=== PATIENT | male | born 1955 | race Caucasian/White ===

== ENCOUNTER → 2017-09-12 08:11 | Outpatient (CLI) | payer OTHER, SELFPAY ==
[2017-09-12 11:51] LABS: Absolute Lymphocyte Count 0.84 X10^3/ul (0.83-4.51); Absolute Neutrophil Count 4.3 X10^3/uL (2.0-7.7); Basophil# 0.01 X10^3/uL; Basophil% 0.2 % (0-1); Eosinophil# 0.12 X10^3/uL; Hematocrit 46.5 % (40-54); Hemoglobin 15.4 g/dl (13.0-16.5); Lymphocyte # 0.84 X10^3/ul (4.0); Lymphocyte % 13.9 % (19-41); Mean Corp Hgb Conc 33.1 g/gl (32-36); Mean Corpuscular Hgb 27.9 pg (27.0-32.0); Mean Corpuscular Volume 84.4 fL (80-94); Mean Platelet Vol. 9.9 fl (6.2-12.0); Monocyte# 0.74 X10^3/uL; Monocyte% 12.3 % (0-10); Neutrophil # 4.32 X10^3/uL (2.7-7.7); Neutrophil % 71.4 % (47-70); Platelet Count 267 K/mm3 (150-450); RBC Distribution Width CV 14.1 % (11.6-14.6); RBC Distribution Width SD 43.7 fl (35.1-43.9); Red Blood Count 5.51 M/mm3 (4.6-6.2)
[2017-09-12 11:52] LABS: POSITIVE COUNT NO; POSITIVE DIFFERENTIAL NO; POSITIVE MORPHOLOGY NO
[2017-09-12 12:01] LABS: Hemoglobin A1c 6.4 % (4.2-6.3)
[2017-09-12 12:14] LABS: ALB/GLOB Ratio 1.1 RATIO (0.9-2.4); AST(SGOT) 23 U/L (15-37); Alanine Aminotransfer ALT/SGPT 39 U/L (16-61); Albumin, Serum 3.5 g/dL (3.2-5.0); Alkaline Phosphatase 76 U/L (45-117); Anion Gap 8 (5-15); BUN 22 mg/dL (7-18); BUN/Creat Ratio 20.8 RATIO (10-20); Calcium,Total 8.5 mg/dL (8.5-10.1); Chloride 105 mmol/L (98-107); Cholesterol 92 mg/dL (200); Creatinine, Serum 1.06 mg/dL (0.70-1.30); EST Glomerular Filtration Rate 75 mL/min (>60); Est Glom Filt Rate - Afr Amer 91 mL/min (>60); Globulin 3.3 g/dL (2.2-4.2); Glucose 100 mg/dL (74-106); High Density Lipoprotein 44 mg/dL; Potassium 4.4 mmol/L (3.5-5.1); Protein, Total 6.8 g/dL (6.4-8.2); Sodium Level 141 mmol/L (136-145); Thyroid Stim Hormone (TSH) 2.59 uIU/mL (0.358-3.74); Triglycerides 110 mg/dL; Very Low Density Lipoprotein 22 mg/dL (5-40)
== END ==
PROVIDERS: Family Provider Family Medicine; PCP Family Medicine; Visit Provider Family Medicine
DX: E11.9 Type 2 diabetes mellitus without complications (principal); I25.810 Atherosclerosis of coronary artery bypass graft(s) without angina pectoris; Z12.5 Encounter for screening for malignant neoplasm of prostate; R53.83 Other fatigue
CPT/HCPCS: 36415; 80053; 80061; 83036; 84443; 85025

== ENCOUNTER 2018-06-10 17:35 | Inpatient (IN) | payer OTHER, SELFPAY ==
[2018-06-10 17:36] VITALS: BP 156/73; PULSE 48; RESP 15; TEMP 37; O2SAT 95; BMI 33.0
--- NOTE | 2018-06-10 17:55 | ED.DCSUM_ITS ---
- ER Visit Summary Date of Service: 06/10/18 Chief Complaint: Nausea, vomiting, diarrhea History of Present Illness: The patient is a 62 M with mild cough and congestion 3 days ago. Yesterday he developed nausea, vomiting, and diarrhea. He had borderline fever at 99.9. Patient denies any prior abdominal surgeries. Physical Examination: Blood pressure is 156/73, temperature 98.6, heart rate 48, respiratory rate 15, pulse ox 95% on room air. Patient sitting upright in bed no acute distress. He is nontoxic appearing. Head neck examination unremarkable. Heart is bradycardic and regular. Lungs sounds are clear. Abdomen is soft but distended. No focal tenderness noted. Hypoactive bowel sounds are present. Test Results: CBC is unremarkable. Chemistry studies reveal glucose of 131 and a BUN of 22. LFTs and lipase normal. EKG is sinus at 71 with no acute ischemia. Emergency Department Course and Treatment: Patient was initially given IV fluids, Zofran, Bentyl. On repeat evaluation he reported some improvement. He still had significant abdominal distention. KUB and upright are obtained and reveal findings consistent with a small bowel obstruction. Patient was sent for CT flank and this is read as likely small bowel obstruction. There is a transition point noted in the pelvis with nondistended distal small bowel loops. Patient had continued nausea and vomited in the emergency room. NG tube was placed. There is little liquid output but the distention is improved and patient feels improved. I will speak with surgery to be consulted and hospitalist will see the patient for admission. Treatment Plan: [] Disposition: Admit Impression: Small bowel obstruction This note was generated with [employer] dictation software. It may contain incorrect words, spelling, and punctuation that were not noted in review of the chart prior to signing ED Disposition - Plan for ED Patient: Referrals: Arnie Braga MD [Primary Care Provider] -
--- NOTE | 2018-06-10 17:56 | EKG12_ITS ---
Test Reason : N/V Blood Pressure : / mmHG Vent. Rate : 071 BPM Atrial Rate : 071 BPM P-R Int : 182 ms QRS Dur : 128 ms QT Int : 390 ms P-R-T Axes : 026 -25 -18 degrees QTc Int : 423 ms Sinus rhythm with occasional Premature ventricular complexes Nonspecific intraventricular block Inferior infarct (cited on or before 28-FEB-2009), age undetermined Cannot rule out Anterior infarct , age undetermined Abnormal ECG Confirmed by RONALDO FRANKLIN, LAURIE ([id number]), manuscript editor RIVERA HU ([id number]) on 06/12/2018 1:29:06 PM Referred By: MAURO/TERENCE Confirmed By:LAURIE HIGGINS MD
[2018-06-10 18:16] LABS: Absolute Lymphocyte Count 0.62 X10^3/ul (0.83-4.51); Hematocrit 48.3 % (40-54); Hemoglobin 16.4 g/dl (13.0-16.5); Lymphocyte # 0.62 X10^3/ul (4.0); Lymphocyte % 12.1 % (19-41); Mean Corpuscular Hgb 28.2 pg (27.0-32.0); Mean Platelet Vol. 9.5 fl (6.2-12.0); Monocyte# 0.53 X10^3/uL; Monocyte% 10.4 % (0-10); Neutrophil # 3.96 X10^3/uL (2.7-7.7); Neutrophil % 77.3 % (47-70); Platelet Count 199 K/mm3 (150-450); RBC Distribution Width CV 14.4 % (11.6-14.6); RBC Distribution Width SD 43.2 fl (35.1-43.9); Red Blood Count 5.82 M/mm3 (4.6-6.2); White Blood Count 5.1 K/mm3 (4.4-11.0)
[2018-06-10 18:17] LABS: POSITIVE COUNT NO; POSITIVE DIFFERENTIAL NO; POSITIVE MORPHOLOGY NO
[2018-06-10] MEDS: Ondansetron 4 MG/2 ML Vial IV ×2 (18:23→23:25)
[2018-06-10] MEDS: 0.9% Normal Saline 1,000 ML 1000 ML IV (18:23)
[2018-06-10] MEDS: Dicyclomine 10 MG Capsule 20 MG PO (18:24)
[2018-06-10 18:27] LABS: AST(SGOT) 28 U/L (15-37); Alanine Aminotransfer ALT/SGPT 37 U/L (16-61); Albumin, Serum 3.4 g/dL (3.2-5.0); Alkaline Phosphatase 69 U/L (45-117); Anion Gap 6 (5-15); BUN 22 mg/dL (7-18); BUN/Creat Ratio 20.8 RATIO (10-20); Bilirubin, Direct 0.23 mg/dL (0.00-0.30); Chloride 107 mmol/L (98-107); Creatinine, Serum 1.06 mg/dL (0.70-1.30); EST Glomerular Filtration Rate 75 mL/min (>60); Est Glom Filt Rate - Afr Amer 90 mL/min (>60); Globulin 3.5 g/dL (2.2-4.2); Glucose 131 mg/dL (74-106); Lipase 55 U/L (73-393); Potassium 3.9 mmol/L (3.5-5.1); Protein, Total 6.9 g/dL (6.4-8.2); Sodium Level 136 mmol/L (136-145)
[2018-06-10] MEDS: 0.9% Normal Saline 1,000 ML 150 ML IV (19:31)
[2018-06-10 19:32] VITALS: BP 137/69; PULSE 68; RESP 16; TEMP 37; O2SAT 95
[2018-06-10 20:00] VITALS: BP 143/82; PULSE 73; RESP 15; TEMP 37.6; O2SAT 96
--- NOTE | 2018-06-10 20:16 | RAD_ITS ---
STUDY: X-RAY - ABDOMEN/PELVIS REASON FOR EXAM: Male, 62 years old. Abdominal distention nausea and vomiting TECHNIQUE: AP supine and upright views of the abdomen and pelvis. COMPARISON: None. FINDINGS: Normal visualized lung bases. There is moderately severe distention with air-fluid levels of multiple loops of small bowel in the abdomen and pelvis. There is no demonstrated free abdominal air. The visualized liver, spleen and kidneys are grossly normal in size and morphology. Normal soft tissue structures. There are degenerative changes of the lumbar spine. RAD/Abd Inc Decub and/or Erect IMPRESSION: Small bowel obstruction. Electronically Signed: Keshawn Lawrence MD at 21:48 EDT , Service support ,
[2018-06-10 21:30] VITALS: BP 145/82; PULSE 68; RESP 15; TEMP 37.2; O2SAT 96
[2018-06-10] MEDS: Mag Hydrox/Al Hydrox/Simeth 30 ML UDC PO (21:30)
--- NOTE | 2018-06-10 21:37 | CT_ITS ---
STUDY: CT ABDOMEN AND PELVIS WITHOUT CONTRAST REASON FOR EXAM: Male, 62 years old. Nausea, vomiting RADIATION DOSAGE (If Supplied By Facility): CTDIvol = ( 18.22 ) mGy, DLP = ( 951.48 ) mGycm TECHNIQUE: Transaxial images were obtained from the dome of the diaphragm to the symphysis pubis without oral contrast, and without intravenous contrast. Sagittal and coronal images were reconstructed. Individualized dose optimization techniques were used for this CT. COMPARISON: Radiographs same day. FINDINGS: There is a 4 mm pleural-based pulmonary nodule within the right middle lobe. The visualized portions of the heart are within normal limits. Normal liver. A benign hepatic calcifications. There is a 5 mm hypodensity within the right lobe of the liver. There are sternal wires and mediastinal clips. There is mild gallbladder distention.. There is benign splenic capsule calcification.. Normal pancreas. There is 5 mm fatty density within the left adrenal gland. There is a 5.6 x 5.3 cm cyst within the midpole of the right kidney. Normal left kidney. Normal visualized stomach. There is significant distended loops of small bowel with transition point within the pelvis with nondistended distal small bowel loops. Normal colon. Normal appendix Normal abdominal aorta. Normal inferior vena cava. Normal retroperitoneum. There is mild distention of the bladder. There is mild prostate enlargement. Normal abdominal wall. There are significant multilevel degenerative changes of the lumbar spine. Multilevel disc space narrowing and anterior and posterior osteophytes. There is multilevel central canal and foraminal stenosis CT/Abdomen/Pelvis without Cont IMPRESSION: Likely small bowel obstruction 4 mm likely benign pleural-based nodule within the right middle lobe, six-month CT chest follow-up recommended 5 mm hypodensity right lobe liver too small to characterize most likely a cyst Previous cardiothoracic surgery sternal wires and mediastinal clips Distended gallbladder. If there is Clinical concern for acute cholecystitis then right upper quadrant ultrasound would be recommended 5 mm left adrenal benign myelolipoma 5.6 x 5.3 cm cyst midpole right kidney Mild distention of the bladder Mild prostate enlargement Significant multilevel spondylosis lumbar spine Electronically Signed: Misha Robbins, at 23:27 EDT Tel , Service support ,
[2018-06-10 22:33] VITALS: BP 127/63; PULSE 68; RESP 15; O2SAT 95
[2018-06-10 23:40] VITALS: BP 137/89; PULSE 77; RESP 16; TEMP 37; O2SAT 93
--- NOTE | 2018-06-10 23:50 | RAD_ITS ---
HISTORY: NG placement COMPARISON: CT abdomen and pelvis 06/10/2018 FINDINGS: The NG tube appears in good position with the tube tip within the stomach. Median sternotomy sutures in place. Redemonstration of dilated small bowel loops in keeping with small bowel obstruction. RAD/Abdomen Single View (Portable) IMPRESSION: 1. NG tube tip within the stomach. 2. Small bowel obstruction. at 0025 Reported and signed by: Nolan Bella MD Electronically Signed: Nolan Bella, at 0:24 EDT Tel , Service support ,
--- NOTE | 2018-06-10 23:59 | RAD_ITS ---
HISTORY: performed for NG placement, ordering Mustapha unsure of placement on abdomen xray EXAM:XR Chest 1 View portable COMPARISON: CT abdomen and pelvis 06/10/[address] chest report but not images 02/26/2009 FINDINGS: NG tube in place with the distal tube coiled within the stomach. Shallow inspiration. Normal heart size. Mild blunting of the left costophrenic angle. No significant pleural effusion. No vascular congestion or acute infiltrate. Midline sternotomy sutures. RAD/Chest 1 View (Portable) IMPRESSION: 1. NG tube coiled within the stomach. 2. No acute cardiopulmonary disease. at 0315 Reported and signed by: Nolan Bella MD Electronically Signed: Nolan Bella, at 3:14 EDT Tel , Service support ,
[2018-06-11 00:11] VITALS: BP 131/77; PULSE 80; RESP 15; O2SAT 94
[2018-06-11 00:44] VITALS: BP 137/71; PULSE 73; RESP 16; TEMP 37; O2SAT 97; BMI 33.3
[2018-06-11] MEDS: Morphine 4 MG/ML Syringe IV (01:19)
--- NOTE | 2018-06-11 02:53 | PCM.HP.STD ---
Problem List (1) Nausea vomiting and diarrhea Status: Acute History of Present Illness Date of Admission: 06/11/18 Chief Complaint: Nausea vomiting and diarrhea The patient is a 62 year old M seen in the emergency room at [facility] with chief complaint of nausea vomiting and diarrhea. This started yesterday. Patient denied any fevers or chills. Patient denied any blood in his stool or vomitus. Workup in the emergency room included a CBC which was unremarkable, chemistry panel revealed a glucose of 131 and a BUN of 22. CT of the abdomen and pelvis was obtained which showed a small bowel obstruction. Distended loops of the small bowel with transition point within the pelvis was noted. NG tube was placed in the emergency room, general surgery was contacted and requested hospitalist service for admission for small bowel obstruction. Patient will be admitted to [place] [id number]. Past Medical History Past Medical History (Chronic Problems): Chronic Problems (Last Reviewed 10/18/17 @ 15:32 by Malaika Lopez) Presence of stent in coronary artery (Chronic ~01/17/08) PTCA of the RCA and PTCA/BMS of the PDA 01/17/08 Atherosclerotic heart disease of [place] coronary artery without angina pectoris (Chronic) CABG x5- MUELLER to LAD, SVG to the continuation branch of the RCA, SVG to the PDA, SVG to the ramus of CX, and SVG to the 1st diagonal of the anteiordescending 02/02/09 Ischemic cardiomyopathy (Chronic) Aortocoronary bypass status (Chronic ~02/02/09) CABG x5- MUELLER to LAD, SVG to the continuation branch of the RCA, SVG to the PDA, SVG to the ramus of CX, and SVG to the 1st diagonal of the anteiordescending 02/02/09 Long-term use of high-risk medication (Chronic) Type 2 diabetes mellitus (Chronic) Hyperlipidemia (Chronic) Carotid bruit (Chronic) Medical History: Medical History (Last Reviewed 10/18/17 @ 15:32 by Malaika Lopez) Postoperative atrial fibrillation (Acute) I97.89, I48.91 History of myocardial infarction (Acute) I25.2 Atherosclerotic heart disease of [place] coronary artery without angina pectoris (Chronic) I25.10 CABG x5- MUELLER to LAD, SVG to the continuation branch of the RCA, SVG to the PDA, SVG to the ramus of CX, and SVG to the 1st diagonal of the anteiordescending 02/02/09 Ischemic cardiomyopathy (Chronic) I25.5 Long-term use of high-risk medication (Chronic) Z79.899 Type 2 diabetes mellitus (Chronic) E11.9 Hyperlipidemia (Chronic) E78.5 Carotid bruit (Chronic) R09.89 Allergies Penicillins Allergy (Severe, Verified 06/10/18 17:36) Unknown Home Medications: Ambulatory Orders Medication Instructions Recorded aspirin 81 mg tablet,delayed 81 mg PO QHS 09/06/17 release metformin 500 mg tablet 500 mg PO QDAY tab 09/06/17 tamsulosin 0.4 mg capsule 0.4 mg PO QHS 10/18/17 atorvastatin 20 mg tablet 20 mg PO QDAY #90 tab 11/09/17 Metoprolol Tartrate 12.5 mg PO DAILY 06/11/18 Surgical History: Surgical History (Last Reviewed 10/18/17 @ 15:32 by Malaika Lopez) Presence of stent in coronary artery (Chronic) Onset Date: ~01/17/08 Z95.5 PTCA of the RCA and PTCA/BMS of the PDA 01/17/08 Aortocoronary bypass status (Chronic) Onset Date: ~02/02/09 Z95.1 CABG x5- MUELLER to LAD, SVG to the continuation branch of the RCA, SVG to the PDA, SVG to the ramus of CX, and SVG to the 1st diagonal of the anteiordescending 02/02/09 Postsurgical percutaneous transluminal coronary angioplasty (PTCA) status Z98.61 PTCA of the RCA and PTCA/BMS of the PDA 01/17/08 Surgical History: coronary bypass surgery, - - Coronary artery stent placement Psychiatric History: No pertinent psych hx Lives: Spouse/ Significant Other Smoking Status: Former smoker Tobacco Use: Non-smoker Alcohol: None Drugs: None - *Family History Maternal Family History: Family History (Last Reviewed 10/18/17 @ 15:32 by Malaika Lopez) Mother CAD (coronary artery disease) Hypertension Sister Hypertension History Items: No pertinent history Paternal Family History: Family History (Last Reviewed 10/18/17 @ 15:32 by Malaika Lopez) Mother CAD (coronary artery disease) Hypertension Sister Hypertension History Items: No pertinent history Review of Systems Constitutional: Denies: Anorexia, Chills, Fever, Night Sweats, Malaise, Weakness, Weight Change, Fatigue Eyes: Denies: Cataracts, Conjunctivae Inflammation, Double vision, Drainage HEENT: Denies: Difficulty Swallowing, Dysphasia, Ear Pain, Eye Pain, Hearing Changes, Nasal bleeding, Nasal Congestion, Post Nasal Drip Cardiovascular: Denies: Chest Pain, Claudication, Chest Pressure, Chest Tightness, Edema, Heaviness, Palpitations Respiratory: Denies: Cough, Hemoptysis, Pleuritic Pain, Shortness of Breath, Shortness of breath at rest, Shortness of breath upon exertion Gastrointestinal: Reports: Diarrhea, Nausea, Vomiting. Denies: Abdominal Pain, Constipation, Hematemesis, Hematochezia, Melena Genitourinary: Denies: Dysuria, Frequency, Hematuria, Hesitancy, Nocturia, Retention, Urgency Musculoskeletal: Denies: Back Pain, Foot Pain, Hand Pain, Joint Pain, Joint stiffness, Joint swelling, Joint Tenderness, Leg Pain Skin: Denies: Dryness, Pruritis, Rash Neurological: Denies: Blurred vision, Double vision, Change in Speech, Slurred speech, Difficulty swallowing, Focal weakness, Headaches, Incoordination, Numbness, Tingling Psychiatric: Denies: Anxiety, Depression, Homicidal Ideations, Suicidal Ideations Endocrine: Denies: Change in Body Habitus, Heat/ Cold Intolerance, Polydipsia, Polyuria Hematologic/ Lymphatic: Denies: Adenopathy, Anemia, Easy Bruising, Easy Bleeding, Petechiae, Purpura VTE Information - Inpt Only VTE Present on Admission: No VTE Mechan Device Prophylaxis: None VTE Pharm Prophylaxis ordered?: Yes Patient Problems: Active and Suspected Problems (Last Reviewed 10/18/17 @ 15:32 by Malaika Lopez) Nausea vomiting and diarrhea (Acute) - Physical Exam General: Alert, Oriented x3, Cooperative, No apparent distress, Well developed, Well nourished HEENT: Atraumatic, PERRLA, EOMI, Normocephalic Oral: Moist Mucosa Neck: Supple, No JVD, Negative Carotid Bruits, No Nuchal Rigidity, Trachea Midline, Thyroid Normal Size and Texture Lungs: Clear to auscultation, Normal air movement, No rhonchi, No wheeze, No rales Cardiovascular: Regular rate, Regular Rhythm, Normal S1, Normal S2, No murmurs, No Ectopic Activity, PMI Normal, No rub noted, No Gallop Abdomen: Hypoactive Bowel Sounds, Distended - Abdomen was distended and tympanic, Tender - Mild mid abdominal tenderness was noted, no rebound abdominal tenderness was noted, No hernias noted Extremities: No clubbing, No cyanosis, No edema, Capillary Refill Less than 3 Seconds Skin: No rashes, No breakdown Musculoskeletal: No Tenderness to Palpation of Joints or Extremities Neurological: Cranial nerves II-XII grossly intact, Neuro grossly intact, Sensory exam intact to light touch and pain, Coordination normal Psych/Mental Status: Normal Affect, Appropriate, Alert and oriented to time, place, person, mood and affect Vital Signs Temp Pulse Resp BP Pulse Ox 98.6 F 73 16 137/71 H 97 06/11/18 00:44 06/11/18 00:44 06/11/18 00:44 06/11/18 00:44 06/11/18 00:44 Oxygen Delivery Method Room Air Weight: 102.2 kg Body Mass Index (BMI) 33.3 Intake and Output for Last 24 Hours 06/09/18 06/10/18 06/11/18 23:59 23:59 23:59 Intake Total 50 / 50 Balance 50 / 50 Laboratory Tests Past 24 Hrs 06/10/18 06/10/18 18:00 18:00 WBC 5.1 RBC 5.82 Hgb 16.4 Hct 48.3 MCV 83.0 MCH 28.2 MCHC 34.0 RDW 14.4 RDW Differential 43.2 Plt Count 199 MPV 9.5 Immature Gran % (Auto) 0.200 Neut % (Auto) 77.3 H Lymph % (Auto) 12.1 L [place] % (Auto) 10.4 H Eos % (Auto) 0.0 Baso % (Auto) 0.0 Absolute Neuts (auto) 4.0 Absolute Lymphs (auto) 0.62 L Total Counted Not Reportable Sodium 136 Potassium 3.9 Chloride 107 Carbon Dioxide 23.0 Anion Gap 6 BUN 22 H Creatinine 1.06 Estim Creat Clear Calc 70.40 Est GFR (MDRD) Af Amer 90 Est GFR (MDRD) Non-Af 75 BUN/Creatinine Ratio 20.8 H Glucose 131 H Calcium 8.0 L Total Bilirubin 0.80 Direct Bilirubin 0.23 AST 28 ALT 37 Alkaline Phosphatase 69 Total Protein 6.9 Albumin 3.4 Globulin 3.5 Lipase 55 L Assessment/Plan All Active Problems (Last Reviewed 10/18/17 @ 15:32 by Malaika Lopez) Nausea vomiting and diarrhea (Acute) Postoperative atrial fibrillation (Acute) History of myocardial infarction (Acute) #1 acute small bowel obstruction-patient will be admitted to [facility], general surgery will see the patient in consultation, NG tube will stay in place and output will be monitored. Labs will be followed #2 coronary artery disease-stable #3 type 2 diabetes-patient's blood sugars will be monitored, sliding scale insulin will be used if needed #4 hyperlipidemia Code Visit Inpatient E&M: 86391 Init Hosp L3
[2018-06-11] MEDS: 0.9% Normal Saline 1,000 ML 150 ML IV ×2 (05:40→23:09)
[2018-06-11] MEDS: Heparin Injection (Vial) 5,000 UNIT/ML VIAL 5000 UNIT SC ×2 (05:41→22:03)
[2018-06-11 05:48] VITALS: BP 152/85; PULSE 72; RESP 18; TEMP 37.7; O2SAT 96
[2018-06-11 06:01] LABS: Bedside Glucose 111 mg/dL (70-110)
[2018-06-11 06:45] LABS: Absolute Lymphocyte Count 0.43 X10^3/ul (0.83-4.51); Basophil# 0.01 X10^3/uL; Basophil% 0.3 % (0-1); Hematocrit 46.8 % (40-54); Hemoglobin 15.6 g/dl (13.0-16.5); Lymphocyte # 0.43 X10^3/ul (4.0); Lymphocyte % 12.9 % (19-41); Mean Corp Hgb Conc 33.3 g/gl (32-36); Mean Corpuscular Hgb 27.9 pg (27.0-32.0); Mean Corpuscular Volume 83.7 fL (80-94); Mean Platelet Vol. 9.4 fl (6.2-12.0); Monocyte# 0.92 X10^3/uL; Monocyte% 27.5 % (0-10); Neutrophil # 1.98 X10^3/uL (2.7-7.7); Neutrophil % 59.3 % (47-70); Platelet Count 206 K/mm3 (150-450); RBC Distribution Width CV 14.4 % (11.6-14.6); RBC Distribution Width SD 44.4 fl (35.1-43.9); Red Blood Count 5.59 M/mm3 (4.6-6.2); White Blood Count 3.3 K/mm3 (4.4-11.0)
[2018-06-11 06:46] LABS: Differential Indicated SCAN CRITERIA MET; POSITIVE COUNT NO; POSITIVE DIFFERENTIAL YES; POSITIVE MORPHOLOGY NO
[2018-06-11 06:51] LABS: ALB/GLOB Ratio 0.9 RATIO (0.9-2.4); AST(SGOT) 22 U/L (15-37); Alanine Aminotransfer ALT/SGPT 33 U/L (16-61); Albumin, Serum 3.2 g/dL (3.2-5.0); Alkaline Phosphatase 67 U/L (45-117); Anion Gap 7 (5-15); BUN 20 mg/dL (7-18); BUN/Creat Ratio 19.2 RATIO (10-20); Chloride 107 mmol/L (98-107); Creatinine, Serum 1.04 mg/dL (0.70-1.30); EST Glomerular Filtration Rate 76 mL/min (>60); Est Glom Filt Rate - Afr Amer 92 mL/min (>60); Estimated Creatinine Clearance 71.76 ml/min; Globulin 3.5 g/dL (2.2-4.2); Glucose 115 mg/dL (74-106); Potassium 4.1 mmol/L (3.5-5.1); Protein, Total 6.7 g/dL (6.4-8.2); Sodium Level 140 mmol/L (136-145)
[2018-06-11 07:01] LABS: Differential Comment SCANNED
--- NOTE | 2018-06-11 07:45 | RAD_ITS ---
STUDY: X-RAY - ABDOMEN/PELVIS REASON FOR EXAM: Male, 62 years old. Small bowel obstruction. TECHNIQUE: AP supine and upright views of the abdomen and pelvis. COMPARISON: Comparison is made with prior study dated June 10, 2018. FINDINGS: The nasogastric tube is seen with the distal tip in the distal portion of the stomach. There are dilated loops of the small intestine with a non-distended colon consistent with a small bowel obstruction. Mild improvement within the small bowel obstruction. There is no demonstrated free abdominal air. The visualized liver, spleen and kidneys are grossly normal in size and morphology. Normal soft tissue structures. There are diffuse degenerative changes of the visualized lumbar spine. RAD/Abd Inc Decub and/or Erect IMPRESSION: Small bowel obstruction. There is minimal mild degree of improvement as compared to prior study. Electronically Signed: Jose Messer, at 15:54 EDT , Service support ,
--- NOTE | 2018-06-11 08:15 | PCM.CONS.GEN ---
Problem List (1) SBO (small bowel obstruction) Status: Acute Reason for Consult Date of Consultation: 06/11/18 History of Present Illness: The patient is a 62 year old M who presented to the emergency room with nausea and vomiting and diarrhea. The patient reports that since Monday morning he has been having nausea and vomiting and thought he came down with the flu. He is also having abdominal cramping. He has been having diarrhea as well. He had an NG tube placed in the ER and that relieved his abdominal cramping abdominal pain. He had no nausea or vomiting overnight. He said his last bout of diarrhea was yesterday at 5:30 PM. He said he did pass some gas overnight. He is not complaining of any abdominal pain currently. Past Medical History Past Medical History (Chronic Problems): Chronic Problems (Last Reviewed 10/18/17 @ 15:32 by Malaika Lopez) Presence of stent in coronary artery (Chronic ~01/17/08) PTCA of the RCA and PTCA/BMS of the PDA 01/17/08 Atherosclerotic heart disease of [place] coronary artery without angina pectoris (Chronic) CABG x5- MUELLER to LAD, SVG to the continuation branch of the RCA, SVG to the PDA, SVG to the ramus of CX, and SVG to the 1st diagonal of the anteiordescending 02/02/09 Ischemic cardiomyopathy (Chronic) Aortocoronary bypass status (Chronic ~02/02/09) CABG x5- MUELLER to LAD, SVG to the continuation branch of the RCA, SVG to the PDA, SVG to the ramus of CX, and SVG to the 1st diagonal of the anteiordescending 02/02/09 Long-term use of high-risk medication (Chronic) Type 2 diabetes mellitus (Chronic) Hyperlipidemia (Chronic) Carotid bruit (Chronic) Medical History: Medical History (Last Reviewed 10/18/17 @ 15:32 by Malaika Lopez) Postoperative atrial fibrillation (Acute) I97.89, I48.91 History of myocardial infarction (Acute) I25.2 Atherosclerotic heart disease of [place] coronary artery without angina pectoris (Chronic) I25.10 CABG x5- MUELLER to LAD, SVG to the continuation branch of the RCA, SVG to the PDA, SVG to the ramus of CX, and SVG to the 1st diagonal of the anteiordescending 02/02/09 Ischemic cardiomyopathy (Chronic) I25.5 Long-term use of high-risk medication (Chronic) Z79.899 Type 2 diabetes mellitus (Chronic) E11.9 Hyperlipidemia (Chronic) E78.5 Carotid bruit (Chronic) R09.89 Allergies Penicillins Allergy (Severe, Verified 06/10/18 17:36) Unknown Home Medications: Ambulatory Orders Medication Instructions Recorded aspirin 81 mg tablet,delayed 81 mg PO QHS 09/06/17 release metformin 500 mg tablet 500 mg PO QDAY tab 09/06/17 tamsulosin 0.4 mg capsule 0.4 mg PO QHS 10/18/17 atorvastatin 20 mg tablet 20 mg PO QDAY #90 tab 11/09/17 Metoprolol Tartrate 12.5 mg PO DAILY 06/11/18 Surgical History: Surgical History (Last Reviewed 10/18/17 @ 15:32 by Malaika Lopez) Presence of stent in coronary artery (Chronic) Onset Date: ~01/17/08 Z95.5 PTCA of the RCA and PTCA/BMS of the PDA 01/17/08 Aortocoronary bypass status (Chronic) Onset Date: ~02/02/09 Z95.1 CABG x5- MUELLER to LAD, SVG to the continuation branch of the RCA, SVG to the PDA, SVG to the ramus of CX, and SVG to the 1st diagonal of the anteiordescending 02/02/09 Postsurgical percutaneous transluminal coronary angioplasty (PTCA) status Z98.61 PTCA of the RCA and PTCA/BMS of the PDA 01/17/08 Surgical History: coronary bypass surgery, - - Coronary artery stent placement Psychiatric History: No pertinent psych hx Lives: Spouse/ Significant Other Smoking Status: Former smoker Tobacco Use: Non-smoker Alcohol: None Drugs: None - *Family History Maternal Family History: Family History (Last Reviewed 10/18/17 @ 15:32 by Malaika Lopez) Mother CAD (coronary artery disease) Hypertension Sister Hypertension History Items: No pertinent history Paternal Family History: Family History (Last Reviewed 10/18/17 @ 15:32 by Malaika Lopez) Mother CAD (coronary artery disease) Hypertension Sister Hypertension History Items: No pertinent history Review of Systems Constitutional: Denies: Anorexia, Fever HEENT: Denies: Difficulty Swallowing Respiratory: Denies: Shortness of Breath Gastrointestinal: Reports: Abdominal Pain, Diarrhea, Nausea, Vomiting. Denies: Hematemesis, Hematochezia Genitourinary: Denies: Dysuria Musculoskeletal: Denies: Joint Tenderness Skin: Denies: Jaundice Neurological: Denies: Balance problems Hematologic/ Lymphatic: Denies: Anemia Patient Problems: Active and Suspected Problems (Last Reviewed 10/18/17 @ 15:32 by Malaika Lopez) Nausea vomiting and diarrhea (Acute) SBO (small bowel obstruction) (Acute) - Physical Exam General: Alert, Oriented x3, Cooperative, No apparent distress HEENT: Atraumatic, PERRLA, EOMI, Normocephalic Neck: No JVD Lungs: Normal air movement Cardiovascular: Regular rate, Regular Rhythm Abdomen: Soft, Non Tender, Non-Distended, Obese Extremities: No clubbing Skin: No rashes Musculoskeletal: No Tenderness to Palpation of Joints or Extremities Lymphatic: No Cervical, Supraclavicular, or Inguinal Adenopathy Psych/Mental Status: Normal Affect Vital Signs Temp Pulse Resp BP Pulse Ox 99.9 F H 72 18 152/85 H 96 06/11/18 05:48 06/11/18 05:48 06/11/18 05:48 06/11/18 05:48 06/11/18 05:48 Oxygen Delivery Method Room Air Weight: 225 lb 4.999 oz Body Mass Index (BMI) 33.3 Intake and Output for Last 24 Hours 06/09/18 06/10/18 06/11/18 23:59 23:59 23:59 Intake Total 956 / 956 Output Total 250 / 250 Balance 706 / 706 Laboratory Tests Past 24 Hrs 06/10/18 06/10/18 06/11/18 18:00 18:00 05:45 WBC 5.1 3.3 L RBC 5.82 5.59 Hgb 16.4 15.6 Hct 48.3 46.8 MCV 83.0 83.7 MCH 28.2 27.9 MCHC 34.0 33.3 RDW 14.4 14.4 RDW Differential 43.2 44.4 H Plt Count 199 206 MPV 9.5 9.4 Immature Gran % (Auto) 0.200 0.000 Neut % (Auto) 77.3 H 59.3 Lymph % (Auto) 12.1 L 12.9 L [place] % (Auto) 10.4 H 27.5 H Eos % (Auto) 0.0 0.0 Baso % (Auto) 0.0 0.3 Absolute Neuts (auto) 4.0 2.0 Absolute Lymphs (auto) 0.62 L 0.43 L Total Counted Not Reportable Not Reportable Differential Comment SCANNED Sodium 136 Potassium 3.9 Chloride 107 Carbon Dioxide 23.0 Anion Gap 6 BUN 22 H Creatinine 1.06 Estim Creat Clear Calc 70.40 Est GFR (MDRD) Af Amer 90 Est GFR (MDRD) Non-Af 75 BUN/Creatinine Ratio 20.8 H Glucose 131 H Calcium 8.0 L Total Bilirubin 0.80 Direct Bilirubin 0.23 AST 28 ALT 37 Alkaline Phosphatase 69 Total Protein 6.9 Albumin 3.4 Globulin 3.5 Albumin/Globulin Ratio Lipase 55 L 06/11/18 05:45 WBC RBC Hgb Hct MCV MCH MCHC RDW RDW Differential Plt Count MPV Immature Gran % (Auto) Neut % (Auto) Lymph % (Auto) [place] % (Auto) Eos % (Auto) Baso % (Auto) Absolute Neuts (auto) Absolute Lymphs (auto) Total Counted Differential Comment Sodium 140 Potassium 4.1 Chloride 107 Carbon Dioxide 26.0 Anion Gap 7 BUN 20 H Creatinine 1.04 Estim Creat Clear Calc 71.76 Est GFR (MDRD) Af Amer 92 Est GFR (MDRD) Non-Af 76 BUN/Creatinine Ratio 19.2 Glucose 115 H Calcium 8.0 L Total Bilirubin 0.70 Direct Bilirubin AST 22 ALT 33 Alkaline Phosphatase 67 Total Protein 6.7 Albumin 3.2 Globulin 3.5 Albumin/Globulin Ratio 0.9 Lipase POC Glucose 06/11/18 05:39 POC Glucose 111 H Clinical Impression(s) from Imaging Studies Abdomen X-Ray 06/10/18 20:16 IMPRESSION: Small bowel obstruction. Electronically Signed: Keshawn Lawrence MD at 21:48 EDT , Service support , Abdomen/Pelvis CT 06/10/18 21:37 IMPRESSION: Likely small bowel obstruction 4 mm likely benign pleural-based nodule within the right middle lobe, six-month CT chest follow-up recommended 5 mm hypodensity right lobe liver too small to characterize most likely a cyst Previous cardiothoracic surgery sternal wires and mediastinal clips Distended gallbladder. If there is Clinical concern for acute cholecystitis then right upper quadrant ultrasound would be recommended 5 mm left adrenal benign myelolipoma 5.6 x 5.3 cm cyst midpole right kidney Mild distention of the bladder Mild prostate enlargement Significant multilevel spondylosis lumbar spine Electronically Signed: Misha Robbins, at 23:27 EDT Tel , Service support , KUB X-Ray 06/10/18 23:50 IMPRESSION: 1. NG tube tip within the stomach. 2. Small bowel obstruction. at 0025 Reported and signed by: Nolan Bella MD Electronically Signed: oNlan Bella, at 0:24 EDT Tel , Service support , Chest X-Ray 06/10/18 23:59 IMPRESSION: 1. NG tube coiled within the stomach. 2. No acute cardiopulmonary disease. at 0315 Reported and signed by: Nolan Bella MD Electronically Signed: Nolan Bella, at 3:14 EDT Tel , Service support , Assessment/Plan All Active Problems (Last Reviewed 10/18/17 @ 15:32 by Malaika Lopez) Nausea vomiting and diarrhea (Acute) SBO (small bowel obstruction) (Acute) Postoperative atrial fibrillation (Acute) History of myocardial infarction (Acute) 62-year-old male with possible small bowel obstruction 1. Patient had CT scan done which showed dilated small bowel with a possible transition point in the distal small bowel. Patient reports has been having diarrhea since this started and only had 200 cc of NG aspirate since NG was placed. Currently he has no abdominal pain and his white count is normal. I will send for a KUB this morning to see if anything is changed. If gases reaches colon on x-ray I may get a small bowel follow-through today. Currently I am not planning and taken to surgery today as his abdomen is soft and benign his white count is normal. 2. I did advise him that small bowel obstructions are unusual in people who have not had abdominal surgery and that if there was signs of partial or complete small bowel obstruction he would likely need surgical exploration to find the cause. Deion Coughlin MD Pager: [facility] [address] [place] [address] [address] [place] [address] Office:
--- NOTE | 2018-06-11 08:19 | CON.PCM_ITS ---
Problem List (1) SBO (small bowel obstruction) Status: Acute Reason for Consult Date of Consultation: 06/11/18 History of Present Illness: The patient is a 62 year old M who presented to the emergency room with nausea and vomiting and diarrhea. The patient reports that since Monday morning he has been having nausea and vomiting and thought he came down with the flu. He is also having abdominal cramping. He has been having diarrhea as well. He had an NG tube placed in the ER and that relieved his abdominal cramping abdominal pain. He had no nausea or vomiting overnight. He said his last bout of diarrhea was yesterday at 5:30 PM. He said he did pass some gas overnight. He is not complaining of any abdominal pain currently. Past Medical History Past Medical History (Chronic Problems): Chronic Problems (Last Reviewed 10/18/17 @ 15:32 by Malaika Lopez) Presence of stent in coronary artery (Chronic ~01/17/08) PTCA of the RCA and PTCA/BMS of the PDA 01/17/08 Atherosclerotic heart disease of [place] coronary artery without angina pectoris (Chronic) CABG x5- MUELLER to LAD, SVG to the continuation branch of the RCA, SVG to the PDA, SVG to the ramus of CX, and SVG to the 1st diagonal of the anteiordescending 02/02/09 Ischemic cardiomyopathy (Chronic) Aortocoronary bypass status (Chronic ~02/02/09) CABG x5- MUELLER to LAD, SVG to the continuation branch of the RCA, SVG to the PDA, SVG to the ramus of CX, and SVG to the 1st diagonal of the anteiordescending 02/02/09 Long-term use of high-risk medication (Chronic) Type 2 diabetes mellitus (Chronic) Hyperlipidemia (Chronic) Carotid bruit (Chronic) Medical History: Medical History (Last Reviewed 10/18/17 @ 15:32 by Malaika Lopez) Postoperative atrial fibrillation (Acute) I97.89, I48.91 History of myocardial infarction (Acute) I25.2 Atherosclerotic heart disease of [place] coronary artery without angina pectoris (Chronic) I25.10 CABG x5- MUELLER to LAD, SVG to the continuation branch of the RCA, SVG to the PDA, SVG to the ramus of CX, and SVG to the 1st diagonal of the anteiordescending 02/02/09 Ischemic cardiomyopathy (Chronic) I25.5 Long-term use of high-risk medication (Chronic) Z79.899 Type 2 diabetes mellitus (Chronic) E11.9 Hyperlipidemia (Chronic) E78.5 Carotid bruit (Chronic) R09.89 Allergies Penicillins Allergy (Severe, Verified 06/10/18 17:36) Unknown Home Medications: Ambulatory Orders Medication Instructions Recorded aspirin 81 mg tablet,delayed 81 mg PO QHS 09/06/17 release metformin 500 mg tablet 500 mg PO QDAY tab 09/06/17 tamsulosin 0.4 mg capsule 0.4 mg PO QHS 10/18/17 atorvastatin 20 mg tablet 20 mg PO QDAY #90 tab 11/09/17 Metoprolol Tartrate 12.5 mg PO DAILY 06/11/18 Surgical History: Surgical History (Last Reviewed 10/18/17 @ 15:32 by Malaika Lopez) Presence of stent in coronary artery (Chronic) Onset Date: ~01/17/08 Z95.5 PTCA of the RCA and PTCA/BMS of the PDA 01/17/08 Aortocoronary bypass status (Chronic) Onset Date: ~02/02/09 Z95.1 CABG x5- MUELLER to LAD, SVG to the continuation branch of the RCA, SVG to the PDA, SVG to the ramus of CX, and SVG to the 1st diagonal of the anteiordescending 02/02/09 Postsurgical percutaneous transluminal coronary angioplasty (PTCA) status Z98.61 PTCA of the RCA and PTCA/BMS of the PDA 01/17/08 Surgical History: coronary bypass surgery, - - Coronary artery stent placement Psychiatric History: No pertinent psych hx Lives: Spouse/ Significant Other Smoking Status: Former smoker Tobacco Use: Non-smoker Alcohol: None Drugs: None - *Family History Maternal Family History: Family History (Last Reviewed 10/18/17 @ 15:32 by Malaika Lopez) Mother CAD (coronary artery disease) Hypertension Sister Hypertension History Items: No pertinent history Paternal Family History: Family History (Last Reviewed 10/18/17 @ 15:32 by Malaika Lopez) Mother CAD (coronary artery disease) Hypertension Sister Hypertension History Items: No pertinent history Review of Systems Constitutional: Denies: Anorexia, Fever HEENT: Denies: Difficulty Swallowing Respiratory: Denies: Shortness of Breath Gastrointestinal: Reports: Abdominal Pain, Diarrhea, Nausea, Vomiting. Denies: Hematemesis, Hematochezia Genitourinary: Denies: Dysuria Musculoskeletal: Denies: Joint Tenderness Skin: Denies: Jaundice Neurological: Denies: Balance problems Hematologic/ Lymphatic: Denies: Anemia Patient Problems: Active and Suspected Problems (Last Reviewed 10/18/17 @ 15:32 by Malaika Lopez) Nausea vomiting and diarrhea (Acute) SBO (small bowel obstruction) (Acute) - Physical Exam General: Alert, Oriented x3, Cooperative, No apparent distress HEENT: Atraumatic, PERRLA, EOMI, Normocephalic Neck: No JVD Lungs: Normal air movement Cardiovascular: Regular rate, Regular Rhythm Abdomen: Soft, Non Tender, Non-Distended, Obese Extremities: No clubbing Skin: No rashes Musculoskeletal: No Tenderness to Palpation of Joints or Extremities Lymphatic: No Cervical, Supraclavicular, or Inguinal Adenopathy Psych/Mental Status: Normal Affect Vital Signs Temp Pulse Resp BP Pulse Ox 99.9 F H 72 18 152/85 H 96 06/11/18 05:48 06/11/18 05:48 06/11/18 05:48 06/11/18 05:48 06/11/18 05:48 Oxygen Delivery Method Room Air Weight: 225 lb 4.999 oz Body Mass Index (BMI) 33.3 Intake and Output for Last 24 Hours 06/09/18 06/10/18 06/11/18 23:59 23:59 23:59 Intake Total 956 / 956 Output Total 250 / 250 Balance 706 / 706 Laboratory Tests Past 24 Hrs 06/10/18 06/10/18 06/11/18 18:00 18:00 05:45 WBC 5.1 3.3 L RBC 5.82 5.59 Hgb 16.4 15.6 Hct 48.3 46.8 MCV 83.0 83.7 MCH 28.2 27.9 MCHC 34.0 33.3 RDW 14.4 14.4 RDW Differential 43.2 44.4 H Plt Count 199 206 MPV 9.5 9.4 Immature Gran % (Auto) 0.200 0.000 Neut % (Auto) 77.3 H 59.3 Lymph % (Auto) 12.1 L 12.9 L [place] % (Auto) 10.4 H 27.5 H Eos % (Auto) 0.0 0.0 Baso % (Auto) 0.0 0.3 Absolute Neuts (auto) 4.0 2.0 Absolute Lymphs (auto) 0.62 L 0.43 L Total Counted Not Reportable Not Reportable Differential Comment SCANNED Sodium 136 Potassium 3.9 Chloride 107 Carbon Dioxide 23.0 Anion Gap 6 BUN 22 H Creatinine 1.06 Estim Creat Clear Calc 70.40 Est GFR (MDRD) Af Amer 90 Est GFR (MDRD) Non-Af 75 BUN/Creatinine Ratio 20.8 H Glucose 131 H Calcium 8.0 L Total Bilirubin 0.80 Direct Bilirubin 0.23 AST 28 ALT 37 Alkaline Phosphatase 69 Total Protein 6.9 Albumin 3.4 Globulin 3.5 Albumin/Globulin Ratio Lipase 55 L 06/11/18 05:45 WBC RBC Hgb Hct MCV MCH MCHC RDW RDW Differential Plt Count MPV Immature Gran % (Auto) Neut % (Auto) Lymph % (Auto) [place] % (Auto) Eos % (Auto) Baso % (Auto) Absolute Neuts (auto) Absolute Lymphs (auto) Total Counted Differential Comment Sodium 140 Potassium 4.1 Chloride 107 Carbon Dioxide 26.0 Anion Gap 7 BUN 20 H Creatinine 1.04 Estim Creat Clear Calc 71.76 Est GFR (MDRD) Af Amer 92 Est GFR (MDRD) Non-Af 76 BUN/Creatinine Ratio 19.2 Glucose 115 H Calcium 8.0 L Total Bilirubin 0.70 Direct Bilirubin AST 22 ALT 33 Alkaline Phosphatase 67 Total Protein 6.7 Albumin 3.2 Globulin 3.5 Albumin/Globulin Ratio 0.9 Lipase POC Glucose 06/11/18 05:39 POC Glucose 111 H Clinical Impression(s) from Imaging Studies Abdomen X-Ray 06/10/18 20:16 IMPRESSION: Small bowel obstruction. Electronically Signed: Keshawn Lawrence MD at 21:48 EDT , Service support , Abdomen/Pelvis CT 06/10/18 21:37 IMPRESSION: Likely small bowel obstruction 4 mm likely benign pleural-based nodule within the right middle lobe, six-month CT chest follow-up recommended 5 mm hypodensity right lobe liver too small to characterize most likely a cyst Previous cardiothoracic surgery sternal wires and mediastinal clips Distended gallbladder. If there is Clinical concern for acute cholecystitis then right upper quadrant ultrasound would be recommended 5 mm left adrenal benign myelolipoma 5.6 x 5.3 cm cyst midpole right kidney Mild distention of the bladder Mild prostate enlargement Significant multilevel spondylosis lumbar spine Electronically Signed: Misha Robbins, at 23:27 EDT Tel , Service support , KUB X-Ray 06/10/18 23:50 IMPRESSION: 1. NG tube tip within the stomach. 2. Small bowel obstruction. at 0025 Reported and signed by: Nolan Bella MD Electronically Signed: Nolan Bella, at 0:24 EDT Tel , Service support , Chest X-Ray 06/10/18 23:59 IMPRESSION: 1. NG tube coiled within the stomach. 2. No acute cardiopulmonary disease. at 0315 Reported and signed by: Nolan Bella MD Electronically Signed: Nolan Bella, at 3:14 EDT Tel , Service support , Assessment/Plan All Active Problems (Last Reviewed 10/18/17 @ 15:32 by Malaika Lopez) Nausea vomiting and diarrhea (Acute) SBO (small bowel obstruction) (Acute) Postoperative atrial fibrillation (Acute) History of myocardial infarction (Acute) 62-year-old male with possible small bowel obstruction 1. Patient had CT scan done which showed dilated small bowel with a possible transition point in the distal small bowel. Patient reports has been having diarrhea since this started and only had 200 cc of NG aspirate since NG was placed. Currently he has no abdominal pain and his white count is normal. I will send for a KUB this morning to see if anything is changed. If gases reaches colon on x-ray I may get a small bowel follow-through today. Currently I am not planning and taken to surgery today as his abdomen is soft and benign his white count is normal. 2. I did advise him that small bowel obstructions are unusual in people who have not had abdominal surgery and that if there was signs of partial or complete small bowel obstruction he would likely need surgical exploration to find the cause. Deion Coughlin MD Pager: [facility] [address] [place] [address] [address] [place] [address] Office:
[2018-06-11 08:51] VITALS: BP 132/76; PULSE 71; RESP 16; TEMP 36.9; O2SAT 95
--- NOTE | 2018-06-11 11:30 | PCM.PN.HOSP ---
Patient Problems: Active and Suspected Problems (Last Reviewed 10/18/17 @ 15:32 by Malaika Lopez) Nausea vomiting and diarrhea (Acute) SBO (small bowel obstruction) (Acute) Subjective: Patient was seen and examined. He admits that he has moved his bowel about 6 times today. Denies any fever or chills. NG tube has been clamped. Vitals/I&O's: Vital Signs Temp Pulse Resp BP Pulse Ox 98.5 F 71 16 132/76 H 95 06/11/18 08:51 06/11/18 08:51 06/11/18 08:51 06/11/18 08:51 06/11/18 08:51 Oxygen Delivery Method Room Air Weight: 102.2 kg Body Mass Index (BMI) 33.3 Intake and Output for Last 24 Hours 06/09/18 06/10/18 06/11/18 23:59 23:59 23:59 Intake Total 956 / 956 Output Total 250 / 250 Balance 706 / 706 General: Alert, Oriented x3, Cooperative, No apparent distress, - HEENT: Atraumatic, PERRLA, EOMI, Normocephalic Oral: Moist Mucosa Neck: Supple Lungs: Clear to auscultation Cardiovascular: Regular rate, Regular Rhythm, Normal S1, Normal S2, No murmurs Abdomen: Bowel Sounds Present, Soft, Non Tender, Non-Distended, No Hepato-splenomegaly Extremities: No edema Skin: No rashes, No breakdown Musculoskeletal: No Tenderness to Palpation of Joints or Extremities Lymphatic: No Cervical, Supraclavicular, or Inguinal Adenopathy Neurological: Cranial nerves II-XII grossly intact, Neuro grossly intact Psych/Mental Status: Normal Affect, Appropriate Laboratory Results 06/10/18 18:00: WBC 5.1, RBC 5.82, Hgb 16.4, Hct 48.3, MCV 83.0, MCH 28.2, MCHC 34.0, RDW 14.4, RDW Differential 43.2, Plt Count 199, MPV 9.5, Immature Gran % (Auto) 0.200, Neut % (Auto) 77.3 H, Lymph % (Auto) 12.1 L, [place] % (Auto) 10.4 H, Eos % (Auto) 0.0, Baso % (Auto) 0.0, Absolute Neuts (auto) 4.0, Absolute Lymphs (auto) 0.62 L, Total Counted Not Reportable 06/10/18 18:00: Sodium 136, Potassium 3.9, Chloride 107, Carbon Dioxide 23.0, Anion Gap 6, BUN 22 H, Creatinine 1.06, Estim Creat Clear Calc 70.40, Est GFR (MDRD) Af Amer 90, Est GFR (MDRD) Non-Af 75, BUN/Creatinine Ratio 20.8 H, Glucose 131 H, Calcium 8.0 L, Total Bilirubin 0.80, Direct Bilirubin 0.23, AST 28, ALT 37, Alkaline Phosphatase 69, Total Protein 6.9, Albumin 3.4, Globulin 3.5, Lipase 55 L 06/11/18 05:39: POC Glucose 111 H 06/11/18 05:45: WBC 3.3 L, RBC 5.59, Hgb 15.6, Hct 46.8, MCV 83.7, MCH 27.9, MCHC 33.3, RDW 14.4, RDW Differential 44.4 H, Plt Count 206, MPV 9.4, Immature Gran % (Auto) 0.000, Neut % (Auto) 59.3, Lymph % (Auto) 12.9 L, [place] % (Auto) 27.5 H, Eos % (Auto) 0.0, Baso % (Auto) 0.3, Absolute Neuts (auto) 2.0, Absolute Lymphs (auto) 0.43 L, Total Counted Not Reportable, Differential Comment SCANNED 06/11/18 05:45: Sodium 140, Potassium 4.1, Chloride 107, Carbon Dioxide 26.0, Anion Gap 7, BUN 20 H, Creatinine 1.04, Estim Creat Clear Calc 71.76, Est GFR (MDRD) Af Amer 92, Est GFR (MDRD) Non-Af 76, BUN/Creatinine Ratio 19.2, Glucose 115 H, Calcium 8.0 L, Total Bilirubin 0.70, AST 22, ALT 33, Alkaline Phosphatase 67, Total Protein 6.7, Albumin 3.2, Globulin 3.5, Albumin/Globulin Ratio 0.9 Current Medications Heparin Sodium (Porcine) (Heparin Na) 5,000 unit SC Q8 YOANA Last Admin: 06/11/18 05:41 Dose: 5,000 unit Sodium Chloride () 1,000 mls @ 150 mls/hr IV .[id number] [facility] Last Admin: 06/11/18 05:40 Dose: 150 mls/hr Famotidine 20 mg/ Sodium (Chloride) 10 mls @ 300 mls/hr IV Q12 [facility] Last Admin: 06/11/18 09:05 Dose: 300 mls/hr Insulin Human Lispro (Humalog Kwikpen (Bkc)) 0 unit SC Q6 YOANA; Protocol Last Admin: 06/11/18 05:41 Dose: Not Given Lorazepam (Ativan) 1 mg IV Q6H PRN PRN PRN Reason: ANXIETY Morphine Sulfate () 4 - 6 mg IV Q4H PRN PRN PRN Reason: MOD-SEVERE PAIN (4-10/10) Morphine Sulfate () 4 - 6 mg IV Q4H PRN PRN PRN Reason: MOD-SEVERE PAIN (4-10/10) Last Admin: 06/11/18 01:19 Dose: 4 mg Sodium Chloride () 5 - 15 ml IV UD PRN PRN Reason: SALINE FLUSH Medical Necessity - Tobacco Use Smoking Status: Former smoker Tobacco Use: Non-smoker Assessment/Plan All Active Problems (Last Reviewed 10/18/17 @ 15:32 by Malaika Lopez) Nausea vomiting and diarrhea (Acute) SBO (small bowel obstruction) (Acute) Postoperative atrial fibrillation (Acute) History of myocardial infarction (Acute) 62 y/o male with medical history of CAD, type II DM, hyperlipidemia admitted with acute small bowel obstruction. 1. Acute small bowel obstruction-patient will be admitted to [facility] 3, general surgery will see the patient in consultation, NG tube will stay in place and output will be monitored. Labs will be followed 2. Hypertension, controlled, on metoprolol, continue to monitor 3. Type 2 DM, blood sugars are controlled, off Metformin for now, on Accu-Cheks with insulin sliding scale 4. CAD, on aspirin, currently on hold 5. Hyperlipidemia, on statin, currently on hold 6. DVT PPx-Heparin SC Code Visit Inpatient E&M: 58802 Subs Hosp L2
--- NOTE | 2018-06-11 11:40 | CASEMGMT ---
RN CM Face to Face with patient for initial transition planning/care coordination assessment. RN CM introduced self and role at [facility]. Patient sitting on edge of bed, alert and oriented, at bedside. Patient willing to participate in assessment and is able to answer all questions appropriately. Care providers, pharmacy, and demographics verified. Patient wishes to discharge home, denies need for home health at this time. Patient states he has no further needs or concerns at this time. CM to follow for discharge planning needs that may arise. PCP: [facility] Specialists: Lennie, seismographer; Robbie urologist Preferred Pharmacy: [facility] Insurance: [employer] me Prescription Benefit: yes Living Will/HPOA: none LNOK: Living Arrangements: Zach lives with in 2 story home with bed and bath on first floor. 2 steps to enter the home. Patient independent at home. Transportation: self/ DME/HHC: None Disposition Plan: Patient to discharge home with family support and follow-up plans in place. Melany OSORION, RN, CM
[2018-06-11 12:28] LABS: Color, Urine Yellow (Yellow); Glucose, Dipstick Normal (Normal); Ketone-Dipstick 50 mg/dl (Negative); Leukocyte Esterase-Dipstick 25 /ul (Negative); Nitrite-Dipstick Negative (Negative); Occult Blood-Urine 25 /ul (Negative); Protein-Dipstick 15 mg/dl (Negative); Specific Gravity, Urine 1.025 (1.002-1.030); Urine Bilirubin Dipstick Negative (Negative); Urine Clarity Sl. Cloudy (Clear); Urine Urobilinogen Normal (Normal)
[2018-06-11 12:43] LABS: Bacteria 1+ /hpf (None Seen); Mucous, Urine 4+ /hpf (<or=2+); Red Blood Cells-Urine 0-5 SEEN /hpf (0-5); Squamous Epithelial Cells - UA 0-5 SEEN /hpf (0-5); Transitional Epithelial - Ur 0 SEEN /hpf (0-5); White Blood Cells 0-5 SEEN /hpf (0-5)
--- NOTE | 2018-06-11 12:45 | RAD_ITS ---
PROCEDURE: Small Bowel Series. CLINICAL HISTORY: Male, 62 years old. Ileus versus obstruction. PROCEDURE: Small Bowel Series. TECHNIQUE: Gastrografin contrast was administered. Serial overhead radiographs were obtained. FLUOROSCOPY TIME (if supplied): None. COMPARISON: Acute abdomen series 0749 hours; noncontrast CT abdomen and pelvis June 10, 2018. FINDINGS: Instrumentation Manager film is centered over the low abdomen/pelvis, but again demonstrates segments of dilated small bowel the mid abdomen accompanied by nondistended colon. Calcified phlebolith projects in the right pelvic soft tissues. There are degenerative changes of the visualized lower lumbar spine. Overhead radiographs show distal nasogastric tube likely advanced to the second portion of the duodenum. There is progression of the contrast through the dilated small bowel segments without a distinct transition point. The gas filled very terminal ileum appears as distended than the remaining small bowel. At 150 minutes there is suggestion of contrast in the right colon, and this is then clearly apparent on the 210 minute film. RAD/Small Bowel Series Only IMPRESSION: Findings consistent with a partial small bowel obstruction secondary to unknown etiology, likely in a distal ileal loop in the right lower quadrant. This transition was better defined on the earlier CT, although there was no clearly demonstrated source of obstruction. Electronically Signed: Logan Jones MD at 17:54 EDT , Service support ,
--- NOTE | 2018-06-11 13:36 | PCA ---
pt off floor
--- NOTE | 2018-06-11 15:37 | PCA ---
pt off floor
[2018-06-11 16:56] VITALS: BP 143/82; PULSE 71; RESP 16; TEMP 36.7; O2SAT 96
[2018-06-11 18:01] LABS: Bedside Glucose 100 mg/dL (70-110)
[2018-06-11 20:30] VITALS: BP 136/80; PULSE 64; RESP 18; TEMP 37.1; O2SAT 95
[2018-06-12] VITALS (7 sets, daily range): BP systolic 100–139; BP diastolic 64–79; PULSE 55–80; RESP 18; TEMP 36.5–37.1; O2SAT 94–98
[2018-06-12] MEDS: Heparin Injection (Vial) 5,000 UNIT/ML VIAL 5000 UNIT SC ×3 (05:26→21:02)
[2018-06-12] MEDS: 0.9% Normal Saline 1,000 ML 150 ML IV (05:32)
--- NOTE | 2018-06-12 05:40 | RAD_ITS ---
STUDY: X-RAY - ABDOMEN/PELVIS REASON FOR EXAM: Male, 62 years old. History of small bowel obstruction. TECHNIQUE: Two AP supine views of the abdomen and pelvis. COMPARISON: Comparison is made with prior examination of June 11, 2018. FINDINGS: The tip of the nasogastric tube is in the second portion of the duodenum. The ingested Gastrografin is now seen throughout the colon. There is less small bowel dilatation at this time. Findings suggestive of thickening of the valvulae conniventes in the mid abdominal small bowel loop. Follow-up is recommended. The visualized liver, spleen and kidneys are grossly normal in size and morphology. Normal soft tissue structures. There are diffuse degenerative changes of the visualized lumbar spine. RAD/Abdomen Single View (Portable) IMPRESSION: Oral contrast now seen within the colon. No significant small bowel dilatation seen at this time. A small bowel loop is seen in the midabdomen with thickened valvulae conniventes. Follow-up is recommended. Electronically Signed: Jose Messer, at 9:32 EDT , Service support ,
[2018-06-12] MEDS: 0.9% NaCl Peripheral Flush Adult/Peds IV ×4 (07:28→21:02)
[2018-06-12] MEDS: Metoprolol Tartrate 25 MG Tablet 12.5 MG PO (08:30)
--- NOTE | 2018-06-12 08:42 | PCM.PN.SRG ---
Patient Problems: Active and Suspected Problems (Last Reviewed 10/18/17 @ 15:32 by Malaika Lopez) Nausea vomiting and diarrhea (Acute) SBO (small bowel obstruction) (Acute) Subjective: Patient reports no nausea or vomiting. No abdominal pain. He had several liquid bowel movements and is passing flatus. - Physical Exam General: Alert, Oriented x3, Cooperative Lungs: Normal air movement, No rales Cardiovascular: Regular rate, Regular Rhythm Abdomen: Soft, Non Tender, Non-Distended Vital Signs Temp Pulse Resp BP Pulse Ox 97.7 F L 63 18 139/79 H 95 06/12/18 07:37 06/12/18 08:30 06/12/18 07:37 06/12/18 07:37 06/12/18 07:37 Oxygen Delivery Method Room Air Weight: 225 lb 4.999 oz Body Mass Index (BMI) 33.3 Intake and Output for Last 24 Hours 06/10/18 06/11/18 06/12/18 23:59 23:59 23:59 Intake Total 1006 / 1006 2908 / 2908 Output Total 250 / 250 600 / 600 Balance 756 / 756 2308 / 2308 Laboratory Tests Past 24 Hrs 06/10/18 11:50 Urine Color Yellow Urine Clarity Sl. Cloudy Urine pH 6.0 Ur Specific [place] 1.025 Urine Protein 15 H Urine Glucose (UA) Normal Urine Ketones 50 H Urine Occult Blood 25 H Urine Nitrite Negative Urine Bilirubin Negative Urine Urobilinogen Normal Ur Leukocyte Esterase 25 H Urine RBC 0-5 SEEN Urine WBC 0-5 SEEN Ur Squamous Epith Cells 0-5 SEEN Ur Transition Epith Cell 0 SEEN Urine Bacteria 1+ Urine Mucus 4+ POC Glucose 06/11/18 17:52 POC Glucose 100 Medical Necessity - Tobacco Use Smoking Status: Former smoker Tobacco Use: Non-smoker Assessment/Plan All Active Problems (Last Reviewed 10/18/17 @ 15:32 by Malaika Lopez) Nausea vomiting and diarrhea (Acute) SBO (small bowel obstruction) (Acute) Postoperative atrial fibrillation (Acute) History of myocardial infarction (Acute) 62-year-old male with gastroenteritis 1. Patient has small bowel follow-through yesterday which showed delayed transit. X-ray today shows market improvement with contrast throughout the colon. There is minimal small bowel distention. There was no output from his NG overnight and the output has cleared up. 2. I will remove the NG tube and start clear liquid diet and advance as tolerated. If patient is unable to tolerate a diet I will taken for laparoscopy to determine cause. Stool studies are pending. Deion Coughlin MD Pager: [facility] [address] [place] [address] [address] [place] [phone] Office:
--- NOTE | 2018-06-12 08:45 | PN.SURG_ITS ---
Patient Problems: Active and Suspected Problems (Last Reviewed 10/18/17 @ 15:32 by Malaika Lopez) Nausea vomiting and diarrhea (Acute) SBO (small bowel obstruction) (Acute) Subjective: Patient reports no nausea or vomiting. No abdominal pain. He had several liquid bowel movements and is passing flatus. - Physical Exam General: Alert, Oriented x3, Cooperative Lungs: Normal air movement, No rales Cardiovascular: Regular rate, Regular Rhythm Abdomen: Soft, Non Tender, Non-Distended Vital Signs Temp Pulse Resp BP Pulse Ox 97.7 F L 63 18 139/79 H 95 06/12/18 07:37 06/12/18 08:30 06/12/18 07:37 06/12/18 07:37 06/12/18 07:37 Oxygen Delivery Method Room Air Weight: 225 lb 4.999 oz Body Mass Index (BMI) 33.3 Intake and Output for Last 24 Hours 06/10/18 06/11/18 06/12/18 23:59 23:59 23:59 Intake Total 1006 / 1006 2908 / 2908 Output Total 250 / 250 600 / 600 Balance 756 / 756 2308 / 2308 Laboratory Tests Past 24 Hrs 06/10/18 11:50 Urine Color Yellow Urine Clarity Sl. Cloudy Urine pH 6.0 Ur Specific [place] 1.025 Urine Protein 15 H Urine Glucose (UA) Normal Urine Ketones 50 H Urine Occult Blood 25 H Urine Nitrite Negative Urine Bilirubin Negative Urine Urobilinogen Normal Ur Leukocyte Esterase 25 H Urine RBC 0-5 SEEN Urine WBC 0-5 SEEN Ur Squamous Epith Cells 0-5 SEEN Ur Transition Epith Cell 0 SEEN Urine Bacteria 1+ Urine Mucus 4+ POC Glucose 06/11/18 17:52 POC Glucose 100 Medical Necessity - Tobacco Use Smoking Status: Former smoker Tobacco Use: Non-smoker Assessment/Plan All Active Problems (Last Reviewed 10/18/17 @ 15:32 by Malaika Lopez) Nausea vomiting and diarrhea (Acute) SBO (small bowel obstruction) (Acute) Postoperative atrial fibrillation (Acute) History of myocardial infarction (Acute) 62-year-old male with gastroenteritis 1. Patient has small bowel follow-through yesterday which showed delayed transit. X-ray today shows market improvement with contrast throughout the colon. There is minimal small bowel distention. There was no output from his NG overnight and the output has cleared up. 2. I will remove the NG tube and start clear liquid diet and advance as tolerated. If patient is unable to tolerate a diet I will taken for laparoscopy to determine cause. Stool studies are pending. Deion Coughlin MD Pager: [facility] [address] [place] [address] [address] [place] [phone] Office:
--- NOTE | 2018-06-12 09:37 | PCM.PN.HOSP ---
Patient Problems: Active and Suspected Problems (Last Reviewed 10/18/17 @ 15:32 by Malaika Lopez) Nausea vomiting and diarrhea (Acute) SBO (small bowel obstruction) (Acute) Subjective: Patient seen and examined. Improving. Rotavirus in stool. No fever seen Objective: Physical exam: General: Alert, Oriented x3, Cooperative, No apparent distress HEENT: Atraumatic, PERRLA, EOMI, Normocephalic Oral: Moist Mucosa Neck: Supple Lungs: Clear to auscultation Cardiovascular: Regular rate, Regular Rhythm, Normal S1, Normal S2, No murmurs Abdomen: Bowel Sounds Present, Soft, Non Tender, Non-Distended, No Hepato-splenomegaly Extremities: No edema Skin: No rashes, No breakdown Musculoskeletal: No Tenderness to Palpation of Joints or Extremities Lymphatic: No Cervical, Supraclavicular, or Inguinal Adenopathy Neurological: Cranial nerves II-XII grossly intact, Neuro grossly intact Psych/Mental Status: Normal Affect, Appropriate Vitals/I&O's: Vital Signs Temp Pulse Resp BP Pulse Ox 97.7 F L 63 18 139/79 H 95 06/12/18 07:37 06/12/18 08:30 06/12/18 07:37 06/12/18 07:37 06/12/18 07:37 Oxygen Delivery Method Room Air Weight: 102.2 kg Body Mass Index (BMI) 33.3 Intake and Output for Last 24 Hours 06/10/18 06/11/18 06/12/18 23:59 23:59 23:59 Intake Total 1006 / 1006 2908 / 2908 Output Total 250 / 250 600 / 600 Balance 756 / 756 2308 / 2308 Laboratory Results 06/10/18 11:50: Urine Color Yellow, Urine Clarity Sl. Cloudy, Urine pH 6.0, Ur Specific [place] 1.025, Urine Protein 15 H, Urine Glucose (UA) Normal, Urine Ketones 50 H, Urine Occult Blood 25 H, Urine Nitrite Negative, Urine Bilirubin Negative, Urine Urobilinogen Normal, Ur Leukocyte Esterase 25 H, Urine RBC 0-5 SEEN, Urine WBC 0-5 SEEN, Ur Squamous Epith Cells 0-5 SEEN, Ur Transition Epith Cell 0 SEEN, Urine Bacteria 1+, Urine Mucus 4+ 06/11/18 17:52: POC Glucose 100 Current Medications Heparin Sodium (Porcine) (Heparin Na) 5,000 unit SC Q8 [facility] Last Admin: 06/12/18 05:26 Dose: 5,000 unit Famotidine 20 mg/ Sodium (Chloride) 10 mls @ 300 mls/hr IV Q12 [facility] Last Admin: 06/12/18 08:30 Dose: 300 mls/hr Sodium Chloride () 1,000 mls @ 70 mls/hr IV .[id number] [facility] Lorazepam (Ativan) 1 mg IV Q6H PRN PRN PRN Reason: ANXIETY Metoprolol Tartrate (Lopressor (Beta Ara)) 12.5 mg PO DAILY [facility] Last Admin: 06/12/18 08:30 Dose: 12.5 mg Sodium Chloride () 5 - 15 ml IV UD PRN PRN Reason: SALINE FLUSH Last Admin: 06/12/18 08:30 Dose: 10 ml Tamsulosin HCl (Flomax) 0.4 mg PO QHS [facility] Last Admin: 06/11/18 22:03 Dose: Not Given Medical Necessity - Tobacco Use Smoking Status: Former smoker Tobacco Use: Non-smoker Assessment/Plan All Active Problems (Last Reviewed 10/18/17 @ 15:32 by Malaika Lopez) Nausea vomiting and diarrhea (Acute) SBO (small bowel obstruction) (Acute) Postoperative atrial fibrillation (Acute) History of myocardial infarction (Acute) 62 y/o male with medical history of CAD, type II DM, hyperlipidemia admitted with acute small bowel obstruction. 1. Acute rotavirus diarrhea, will monitor symptomatically 2. Acute small bowel obstruction, resolved, off NG tube, general surgery following 3. Hypertension, controlled, on metoprolol, continue to monitor 4. Type 2 DM, blood sugars are controlled, off Metformin for now, on Accu-Cheks with insulin sliding scale 5. CAD, on aspirin, currently on hold 6. Hyperlipidemia, on statin, currently on hold 7. DVT PPx-Heparin SC Code Visit Inpatient E&M: 62336 Subs Hosp L2
--- NOTE | 2018-06-12 14:22 | PCM.PN.SRG ---
Patient Problems: Active and Suspected Problems (Last Reviewed 10/18/17 @ 15:32 by Malaika Lopez) Nausea vomiting and diarrhea (Acute) SBO (small bowel obstruction) (Acute) Subjective: Patient is doing well this afternoon. He is tolerating clear liquid diet with no abdominal pain. - Physical Exam General: Alert, Oriented x3 Abdomen: Soft, Non Tender, Non-Distended Vital Signs Temp Pulse Resp BP Pulse Ox 98.0 F 55 L 18 135/75 H 98 06/12/18 13:17 06/12/18 13:17 06/12/18 13:17 06/12/18 13:17 06/12/18 13:17 Oxygen Delivery Method Room Air Weight: 225 lb 4.999 oz Body Mass Index (BMI) 33.3 Intake and Output for Last 24 Hours 06/10/18 06/11/18 06/12/18 23:59 23:59 23:59 Intake Total 1006 / 1006 4597 / 4597 Output Total 250 / 250 600 / 600 Balance 756 / 756 3997 / 3997 Microbiology Past 72 Hours 06/11/18 Unknown Enteric Bacteriology - Final Stool Rotavirus POC Glucose 06/11/18 17:52 POC Glucose 100 Medical Necessity - Tobacco Use Smoking Status: Former smoker Tobacco Use: Non-smoker Assessment/Plan All Active Problems (Last Reviewed 10/18/17 @ 15:32 by Malaika Lopez) Nausea vomiting and diarrhea (Acute) SBO (small bowel obstruction) (Acute) Postoperative atrial fibrillation (Acute) History of myocardial infarction (Acute) 62-year-old male with gastroenteritis 1. Patient stool came back positive for rotavirus. This likely the cause of the gastroenteritis. The patient is tolerating clear liquid diet and I will advance him to a regular diet. If he tolerates regular diet he may be discharged home. Follow-up as needed. Deion Coughlin MD Pager: [facility] [address] [place] [address], [address] [place] [address] Office:
[2018-06-12] MEDS: Tamsulosin HCl 0.4 MG Capsule PO (21:02)
[2018-06-13 02:45] VITALS: BP 96/41; PULSE 55; RESP 18; TEMP 37.2; O2SAT 95
[2018-06-13] MEDS: Heparin Injection (Vial) 5,000 UNIT/ML VIAL 5000 UNIT SC (05:56)
--- NOTE | 2018-06-13 08:30 | PN.SURG_ITS ---
Patient Problems: Active and Suspected Problems (Last Reviewed 10/18/17 @ 15:32 by Malaika Lopez) Nausea vomiting and diarrhea (Acute) SBO (small bowel obstruction) (Acute) Subjective: Patient is doing well and tolerating a regular diet with no abdominal pain. He still has diarrhea. - Physical Exam General: Alert, Cooperative Lungs: Normal air movement Abdomen: Soft, Non Tender, Non-Distended Vital Signs Temp Pulse Resp BP Pulse Ox 98.9 F 55 L 18 96/41 L 95 06/13/18 02:45 06/13/18 02:45 06/13/18 02:45 06/13/18 02:45 06/13/18 02:45 Oxygen Delivery Method Room Air Weight: 225 lb 4.999 oz Body Mass Index (BMI) 33.3 Intake and Output for Last 24 Hours 06/11/18 06/12/18 06/13/18 23:59 23:59 23:59 Intake Total 1006 / 1006 5486 / 5486 510 / 510 Output Total 250 / 250 1000 / 1000 Balance 756 / 756 4486 / 4486 510 / 510 Microbiology Past 72 Hours 06/11/18 Unknown Enteric Bacteriology - Final Stool Rotavirus Medical Necessity - Tobacco Use Smoking Status: Former smoker Tobacco Use: Non-smoker Assessment/Plan All Active Problems (Last Reviewed 10/18/17 @ 15:32 by Malaika Lopez) Nausea vomiting and diarrhea (Acute) SBO (small bowel obstruction) (Acute) Postoperative atrial fibrillation (Acute) History of myocardial infarction (Acute) 62-year-old male with gastroenteritis and rotavirus 1. Patient tolerating regular diet with no abdominal pain. He is still having watery diarrhea. He is not having any nausea or vomiting. 2. Supportive care and follow-up as needed Deion Coughlin MD Pager: [facility] [address] [place] [address], [address] [place] [address] Office:
[2018-06-13 08:45] VITALS: BP 119/71; PULSE 57; RESP 18; TEMP 36.7; O2SAT 97
[2018-06-13 09:02] VITALS: PULSE 57
[2018-06-13] MEDS: Metoprolol Tartrate 25 MG Tablet 12.5 MG PO (09:02)
[2018-06-13] MEDS: 0.9% NaCl Peripheral Flush Adult/Peds IV (09:04)
--- NOTE | 2018-06-13 11:31 | DCINST_ITS ---
- Discharge Diagnoses Current Active Problems: Current Active and Chronic Problems (Last Reviewed 10/18/17 @ 15:32 by Malaika Lopez) Nausea vomiting and diarrhea (Acute) SBO (small bowel obstruction) (Acute) Reason(s) for Visit for Discharge Instructions: Nausea, vomiting, abdominal pain You will use the following diet at home:: Calorie/Carbohydrate Controlled (specify 1200, 1400, etc), Cardiac Your food should be the consistency of: Regular Your liquids should be the consistency of: Regular/Thin Discharge Activity: Return to Normal Activity Additional Instructions: Continue to maintain strict hand hygiene especially after moving your bowels. Continue to hydrate yourself. Keep a log of how many times you are moving your bowels and the consistency. Let your primary care doctor know if you develop a fever, start having blood in your stool, or develop worsening abdominal distension. Allergies/Adverse Reactions: Allergies Penicillins Allergy (Severe, Verified 06/10/18 17:36) Unknown Medications to take at Discharge aspirin 81 mg tablet,delayed release 81 mg PO QHS 09/06/17 metformin 500 mg tablet 500 mg PO QDAY tab 09/06/17 tamsulosin 0.4 mg capsule 0.4 mg PO QHS 10/18/17 atorvastatin 20 mg tablet 20 mg PO QDAY #90 tab 11/09/17 Metoprolol Tartrate 12.5 mg PO DAILY 06/11/18 Primary Care Physician: Arnie Braga MD [Primary Care Provider] - Please follow up with your Primary Care Physician in: within 1-2 weeks of discharge Test Results: Test results from this visit will be discussed in further detail at your follow- up appointment, if applicable. Please Follow Up With: Arnie Braga When: 1 to 2 weeks Proposed Discharge Date: 06/13/18
--- NOTE | 2018-06-13 11:31 | PCM.DC.SUM ---
Discharge Date and Diagnosis Date of Admission: 06/11/18 Date of Discharge: 06/13/18 - Primary Discharge Diagnosis Active and Suspected Problems (Last Reviewed 10/18/17 @ 15:32 by aMlaika Lopez) Nausea vomiting and diarrhea (Acute) SBO (small bowel obstruction) (Acute) Acute rotavirus infection - Secondary Discharge Diagnosis Chronic Problems (Last Reviewed 10/18/17 @ 15:32 by Malaika Lopez) Presence of stent in coronary artery (Chronic ~01/17/08) PTCA of the RCA and PTCA/BMS of the PDA 01/17/08 Atherosclerotic heart disease of [place] coronary artery without angina pectoris (Chronic) CABG x5- MUELLER to LAD, SVG to the continuation branch of the RCA, SVG to the PDA, SVG to the ramus of CX, and SVG to the 1st diagonal of the anteiordescending 02/02/09 Ischemic cardiomyopathy (Chronic) Aortocoronary bypass status (Chronic ~02/02/09) CABG x5- MUELLER to LAD, SVG to the continuation branch of the RCA, SVG to the PDA, SVG to the ramus of CX, and SVG to the 1st diagonal of the anteiordescending 02/02/09 Long-term use of high-risk medication (Chronic) Type 2 diabetes mellitus (Chronic) Hyperlipidemia (Chronic) Carotid bruit (Chronic) Hospital Course and Treatment Imaging Results: Clinical Impression(s) from Imaging Studies Abdomen X-Ray 06/10/18 20:16 IMPRESSION: Small bowel obstruction. Electronically Signed: Keshawn Lawrence MD at 21:48 EDT , Service support , Abdomen/Pelvis CT 06/10/18 21:37 IMPRESSION: Likely small bowel obstruction 4 mm likely benign pleural-based nodule within the right middle lobe, six-month CT chest follow-up recommended 5 mm hypodensity right lobe liver too small to characterize most likely a cyst Previous cardiothoracic surgery sternal wires and mediastinal clips Distended gallbladder. If there is Clinical concern for acute cholecystitis then right upper quadrant ultrasound would be recommended 5 mm left adrenal benign myelolipoma 5.6 x 5.3 cm cyst midpole right kidney Mild distention of the bladder Mild prostate enlargement Significant multilevel spondylosis lumbar spine Electronically Signed: Misha Robbins, at 23:27 EDT Tel , Service support , KUB X-Ray 06/10/18 23:50 IMPRESSION: 1. NG tube tip within the stomach. 2. Small bowel obstruction. at 0025 Reported and signed by: Nolan Bella MD Electronically Signed: Nolan Bella, at 0:24 EDT Tel , Service support , Chest X-Ray 06/10/18 23:59 IMPRESSION: 1. NG tube coiled within the stomach. 2. No acute cardiopulmonary disease. at 0315 Reported and signed by: Nolan Bella MD Electronically Signed: Nolan Bella, at 3:14 EDT Tel , Service support , Abdomen X-Ray 06/11/18 07:45 IMPRESSION: Small bowel obstruction. There is minimal mild degree of improvement as compared to prior study. Electronically Signed: Jose Messer, at 15:54 EDT , Service support , Small Bowel X-Ray 06/11/18 12:45 IMPRESSION: Findings consistent with a partial small bowel obstruction secondary to unknown etiology, likely in a distal ileal loop in the right lower quadrant. This transition was better defined on the earlier CT, although there was no clearly demonstrated source of obstruction. Electronically Signed: Logan Jones MD at 17:54 EDT , Service support , KUB X-Ray 04/02/19 05:40 IMPRESSION: Oral contrast now seen within the colon. No significant small bowel dilatation seen at this time. A small bowel loop is seen in the midabdomen with thickened valvulae conniventes. Follow-up is recommended. Electronically Signed: Jose Messer, at 9:32 EDT , Service support , General surgery Operations: None Procedures: None Summary of Care Provided: 62 y/o male with medical history of CAD, type II DM, hyperlipidemia admitted with acute small bowel obstruction. Patient was managed conservatively with NG tube. General surgery consulted. Followed up with serial abdominal x-rays as well as small bowel follow-through study. Patient developed acute diarrhea, stool studies was positive for rotavirus. He was managed symptomatically. He was able to tolerate an advancement in his diet. Subjective: On the day of discharge, patient was seen and examined. He was able to tolerate improvement in his diet. Denied any worsening abdominal pain no nausea or vomiting. No fevers. Has had about 6 bowel movements. Stools were low in quantity, but frequent. Objective: Physical exam: General: Alert, Oriented x3, Cooperative, No apparent distress HEENT: Atraumatic, PERRLA, EOMI, Normocephalic Oral: Moist Mucosa Neck: Supple Lungs: Clear to auscultation Cardiovascular: Regular rate, Regular Rhythm, Normal S1, Normal S2, No murmurs Abdomen: Bowel Sounds Present, Soft, Non Tender, Non-Distended, No Hepato-splenomegaly Extremities: No edema Skin: No rashes, No breakdown Musculoskeletal: No Tenderness to Palpation of Joints or Extremities Lymphatic: No Cervical, Supraclavicular, or Inguinal Adenopathy Neurological: Cranial nerves II-XII grossly intact, Neuro grossly intact Psych/Mental Status: Normal Affect, Appropriate - Physical Exam Vital Signs Temp Pulse Resp BP Pulse Ox 98.1 F 57 L 18 119/71 97 06/13/18 08:45 06/13/18 09:02 06/13/18 08:45 06/13/18 08:45 06/13/18 08:45 Oxygen Delivery Method Room Air Weight: 102.2 kg Body Mass Index (BMI) 33.3 Intake and Output for Last 24 Hours 06/11/18 06/12/1806/13/19 23:59 23:59 23:59 Intake Total 1006 / 1006 5486 / 5486 510 / 510 Output Total 250 / 250 1000 / 1000 Balance 756 / 756 4486 / 4486 510 / 510 Microbiology Past 72 Hours 06/11/18 Unknown Enteric Bacteriology - Final Stool Rotavirus Laboratory Tests Past 24 Hrs 06/13/18 06/13/18 11:18 11:18 WBC Pending RBC Pending Hgb Pending Hct Pending MCV Pending MCH Pending MCHC Pending RDW Pending RDW Differential Pending Plt Count Pending Neut % (Auto) Pending Absolute Neuts (auto) Pending Total Counted Pending Sodium Pending Potassium Pending Chloride Pending Carbon Dioxide Pending Anion Gap Pending BUN Pending Creatinine Pending Est GFR (MDRD) Af Amer Pending Est GFR (MDRD) Non-Af Pending BUN/Creatinine Ratio Pending Glucose Pending Calcium Pending Discharge Diet: Low fat/ Low Cholesterol, 2000 mg Sodium Diet Discharge Activity: Return to Normal Activity Home Medications: Medications to take at Discharge aspirin 81 mg tablet,delayed release 81 mg PO QHS 09/06/17 metformin 500 mg tablet 500 mg PO QDAY tab 09/06/17 tamsulosin 0.4 mg capsule 0.4 mg PO QHS 10/18/17 atorvastatin 20 mg tablet 20 mg PO QDAY #90 tab 11/09/17 Metoprolol Tartrate 12.5 mg PO DAILY 06/11/18 Primary Care Physician: Arnie Braga MD [Primary Care Provider] - Please follow up with your Primary Care Physician in: within 1-2 weeks of discharge Please Follow Up With: Arnie Braga When: 1 to 2 weeks Disposition: Home Minutes spent on discharge:: 40 Patient Condition:: Stable Medical Necessity - Tobacco Use Smoking Status: Former smoker Tobacco Use: Non-smoker Meaningful Use Info Meaningful Use Diagnoses (Choose all that apply): None applicable Code Visit Inpatient E&M: 44694 Disch Hosp
[2018-06-13 11:32] LABS: Absolute Lymphocyte Count 0.79 X10^3/ul (0.83-4.51); Absolute Neutrophil Count 4.1 X10^3/uL (2.0-7.7); Basophil# 0.03 X10^3/uL; Basophil% 0.5 % (0-1); Eosinophil# 0.04 X10^3/uL; Eosinophils% 0.7 % (0-5); Hematocrit 44.4 % (40-54); Hemoglobin 14.8 g/dl (13.0-16.5); Lymphocyte # 0.79 X10^3/ul (4.0); Lymphocyte % 13.7 % (19-41); Mean Corp Hgb Conc 33.3 g/gl (32-36); Mean Corpuscular Hgb 27.9 pg (27.0-32.0); Mean Corpuscular Volume 83.6 fL (80-94); Mean Platelet Vol. 9.3 fl (6.2-12.0); Monocyte# 0.83 X10^3/uL; Monocyte% 14.4 % (0-10); Neutrophil # 4.07 X10^3/uL (2.7-7.7); Neutrophil % 70.7 % (47-70); Platelet Count 198 K/mm3 (150-450); RBC Distribution Width CV 13.9 % (11.6-14.6); RBC Distribution Width SD 42.7 fl (35.1-43.9); Red Blood Count 5.31 M/mm3 (4.6-6.2); White Blood Count 5.8 K/mm3 (4.4-11.0)
[2018-06-13 11:34] LABS: POSITIVE COUNT NO; POSITIVE DIFFERENTIAL NO; POSITIVE MORPHOLOGY NO
[2018-06-13 11:40] LABS: Anion Gap 5 (5-15); BUN 14 mg/dL (7-18); BUN/Creat Ratio 14.5 RATIO (10-20); Calcium,Total 8.4 mg/dL (8.5-10.1); Chloride 106 mmol/L (98-107); Creatinine, Serum 0.97 mg/dL (0.70-1.30); EST Glomerular Filtration Rate 83 mL/min (>60); Est Glom Filt Rate - Afr Amer 100 mL/min (>60); Estimated Creatinine Clearance 76.94 ml/min; Glucose 87 mg/dL (74-106); Potassium 3.5 mmol/L (3.5-5.1); Sodium Level 135 mmol/L (136-145)
[2018-06-13 14:15] VITALS: BP 129/72; PULSE 55; RESP 18; TEMP 36.9; O2SAT 95
--- NOTE | 2018-06-14 15:29 | CASEMGMT ---
JAYASHREE ROME Discharge Follow-up Phone Call: BESS: Claudio Strata: 3 Call Date: 06/14/18 Discharge Date: 06/13/18 Time of Call: 1528 Duration: 3 min Admitting Diagnosis: SBO JAYASHREE ROME completed follow-up phone call after recent hospitalization. Patient states he is doing much better. No questions or concerns regarding discharge instructions. Patient has follow-up appt on 06/20 with PCP. No further questions or concerns.
== END 2018-06-13 14:53 | disposition home or self-care (01) | DRG 389 ==
LOC: ED 20:54 → MS3 06-11 00:20
PROVIDERS: Admitting Provider Internal Medicine; Emergency Provider Emergency Medicine; Family Provider Family Medicine; PCP Family Medicine; Visit Provider Internal Medicine
DX: K56.609 Unspecified intestinal obstruction, unspecified as to partial versus complete obstruction (principal); A08.0 Rotaviral enteritis; E78.5 Hyperlipidemia, unspecified; I25.10 Atherosclerotic heart disease of native coronary artery without angina pectoris; E11.9 Type 2 diabetes mellitus without complications; I10 Essential (primary) hypertension; I25.5 Ischemic cardiomyopathy; Z79.84 Long term (current) use of oral hypoglycemic drugs; Z95.5 Presence of coronary angioplasty implant and graft; Z95.1 Presence of aortocoronary bypass graft; Z87.891 Personal history of nicotine dependence; I25.2 Old myocardial infarction
CPT/HCPCS: 36415; 71045; 74018; 74019; 74176; 74250; 80048; 80053; 80076; 81001; 82962; 83690; 85025; 87506; 93005; 99285; J7030; A4216; J2405; J3490

== ENCOUNTER → 2018-12-11 07:56 | Outpatient (CLI) | payer MEDICARE, OTHER, SELFPAY ==
[2018-12-03 14:40] VITALS: BMI 33.3
[2018-12-05 14:04] VITALS: BMI 33.7
--- NOTE | 2018-12-11 08:02 | CT_ITS ---
STUDY: CT CHEST WITH CONTRAST REASON FOR EXAM: Male, 63 years old. Left axillary mass for 15 years. RADIATION DOSAGE (If Supplied By Facility): CTDIvol = ( 17.70 ) mGy, DLP = ( 839.65 ) mGycm TECHNIQUE: Transaxial imaging was performed following intravenous administration of IV Isovue 300 100. Multiplanar coronal and sagittal images were reformatted. Individualized dose optimization techniques were used for this CT. COMPARISON: Chest, June 10, 2018. FINDINGS: The lungs are normal. There is no demonstrated pleural abnormality. Sternal cerclage wires and vascular clips are present from a prior sternotomy and coronary artery bypass graft procedure (CABG). Heart is normal in size. Normal pericardium. Normal mediastinum. Normal hilar regions. Normal enhanced pulmonary arteries. Normal aorta arch and descending thoracic aorta. There are degenerative changes of the cervical spine. There is a large fat density mass extending outward from the left axilla measuring 15.3 x 9.1 x 7.9 cm. Superiorly this appears to extend upward region of the teres major musculature. More inferiorly this is transverse crest by the left axillary artery and vein. There is adjacent fatty centered lymph nodes along its inferior margin. The chest wall structures are otherwise symmetric. There is fatty infiltration of the liver without focal mass. The upper abdomen is otherwise grossly normal. CT/Chest WITH Contrast IMPRESSION: 1. 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 2. No acute cardiopulmonary disease. 3. Evidence of prior CABG procedure. 4. Fatty infiltration of the liver. Electronically Signed: Mehrdad Freeman DO at 16:59 EDT Tel [phone], Service support ,
[2018-12-11 08:11] LABS: CREATININE FINGERSTICK 0.8 mg/dL (0.70-1.30); EGFR FINGERSTICK > 60.0000 mL/min (>60)
== END ==
PROVIDERS: Family Provider Family Medicine; PCP Family Medicine; Referring Provider Surgery; Visit Provider Surgery
DX: R22.32 Localized swelling, mass and lump, left upper limb (principal)
CPT/HCPCS: 71260; Q9967

== ENCOUNTER → 2018-12-12 09:54 | Outpatient (CLI) | payer MEDICARE, OTHER, SELFPAY ==
[2018-12-05 14:04] VITALS: BMI 33.7
--- NOTE | 2018-12-12 09:57 | CDU_ITS ---
Reason For Study: Carotid artery disease Rt. Velocities/BP Lt. Velocities/BP Prox CCA 93/20 cm/sec. Prox CCA 101/13.3 cm/sec. Mid CCA 79.9/10.8 cm/sec. Mid CCA 90/18.8 cm/sec. Dist CCA 64.3/10.8 cm/sec. Dist CCA 73.6/13.3 cm/sec. Prox ICA 51.3/17.3 cm/sec. Prox ICA 49.4/9.7 cm/sec. Mid ICA 72.1/23.9 cm/sec. Mid ICA 73/24.8 cm/sec. Dist ICA 76/30.4 cm/sec. Dist ICA 74.9/24.8 cm/sec. Rt. ICA/CCA = 1.0. Lt. ICA/CCA = 0.8. Prox ECA 86.5/8.2 cm/sec. Prox ECA 91.9/9.7 cm/sec. Rt. Vert. 45.4/16.8 cm/sec. Lt. Vert. 50.4/11.6 cm/sec. Right Extracranial There is homogeneous, smooth atherosclerotic plaque noted in the right common carotid artery. There is homogeneous, smooth atherosclerotic plaque noted in the right internal carotid artery. There is intimal thickening but no significant atherosclerotic plaque noted in the right external carotid artery. Antegrade flow is noted in the right vertebral artery. Left Extracranial There is homogeneous, smooth atherosclerotic plaque noted in the left common carotid artery. There is homogeneous, smooth atherosclerotic plaque noted in the left internal carotid artery. There is intimal thickening but no significant atherosclerotic plaque noted in the left external carotid artery. Antegrade flow is noted in the left vertebral artery. Procedure Carotid Duplex 72081. Exam performed in department. Interpretation Summary Smooth plague proximal right internal carotid with <50% stenosis. <50% stenosis right external carotid Smooth plague proximal left internal carotid with <50% stenosis. <50% stenosis left external carotid Patent and antegrade vertebrals bilaterally with <50% stenosis Ordering Physician: Henrique Hogue Referring Physician: Arnie Braga M.D. Performed By: Melany Maravilla RVT
== END ==
PROVIDERS: Family Provider Family Medicine; PCP Family Medicine; Referring Provider Internal Medicine Cardiovascular Disease; Visit Provider Internal Medicine Cardiovascular Disease
DX: R09.89 Other specified symptoms and signs involving the circulatory and respiratory systems (principal)
CPT/HCPCS: 93880

== ENCOUNTER → 2019-01-01 06:30 | Outpatient (CLI) | payer MEDICARE, OTHER, SELFPAY ==
[2018-12-05 14:04] VITALS: BMI 33.7
[2018-12-20 08:03] VITALS: BMI 33.7
--- NOTE | 2019-01-01 06:32 | ECHOCS_ITS ---
Reason For Study: CAD/ASHD Procedure This was a 2D Doppler, Color Flow transthoracic echocardiogram. The study was technically difficult. Contrast injection was performed. Exam performed in department. Left Ventricle Normal LV size. Mild segmental systolic dysfunction (see wall motion). The estimated ejection fraction is 45 %. Diastolic function is indeterminate. Infero-Basal: Hypokinetic. Basal inferoseptal: Hypokinetic. Mid-Anterior : Hypokinetic. Mid-Lateral : Hypokinetic. Mid-Posterior: Hypokinetic. Mid-Inferior: Akinetic. Mid-inferoseptal : Hypokinetic. Inferior [place] : Hypokinetic. Lateral [place] : Hypokinetic. Septal [place] : Hypokinetic. Right Ventricle Normal RV size. Normal systolic function. Atria The left atrium is mildly enlarged. Normal right atrium. No doppler evidence for ASD. Mitral Valve There is no mitral annular calcification. Normal mitral valve. Trivial mitral valve insufficiency. Tricuspid Valve Normal tricuspid valve. Trivial tricuspid valve insufficiency. Unable to estimate RV systolic pressure/pulmonary artery pressure due to technically difficult study. Aortic Valve Trisinus/trileaflet aortic valve. Normal aortic valve. Pulmonic Valve The pulmonic valve is not well visualized. Trivial pulmonic valve insufficiency. Great Vessels Normal sized aortic root. Pericardium/Pleural No pericardial effusion. Medication 22 gauge I.V. with prn adaptor inserted into right arm. Diluted definity 3ml given slow IV push to enhance endocardial definition. MMode/2D Measurements & Calculations LVIDd: 4.6 cm IVSd: 1.1 cm Ao root diam: 3.5 cm LVIDs: 3.6 cm LVPWd: 1.5 cm LA dimension: 4.0 cm FS: 21.8 % LAV(MOD-bp): 63.3 ml LA A4 area: 21.0 cm2 LAV(MOD-bp) Indexed: 28.9 ml/m2 LAV(MOD-sp2): 61.9 ml LAV(MOD-sp4): 63.5 ml Time Measurements MV dec time: 0.19 sec Doppler Measurements & Calculations MV E max shakeel: 79.2 cm/sec Lat Peak E' Shakeel: 10.3 cm/sec Med Peak E' Shakeel: 5.8 cm/sec MV A max shakeel: 74.3 cm/sec E/E' lat: 7.7 E/E' med: 13.6 MV E/A: 1.1 MV V2 max: 77.6 cm/sec MV P1/2t max shakeel: 71.2 cm/sec Ao V2 max: 115.6 cm/sec MV max P.4 mmHg MV P1/2t: 166.2 msec Ao max P.3 mmHg MV V2 mean: 42.8 cm/sec MV dec slope: 125.4 cm/sec2 Ao V2 mean: 74.0 cm/sec MV mean P.86 mmHg Ao mean P.5 mmHg MV V2 VTI: 28.8 cm MVA(P1/2t): 1.3 cm2 Ao V2 VTI: 25.9 cm LV V1 max: 91.6 cm/sec PA V2 max: 88.6 cm/sec LV V1 max P.4 mmHg LV V1 mean P.5 mmHg LV V1 mean: 56.6 cm/sec LV V1 VTI: 19.8 cm Interpretation Summary The study was technically difficult. Contrast injection was performed. Mild segmental systolic dysfunction (see wall motion). The estimated ejection fraction is 45 %. The left atrium is mildly enlarged. Trivial mitral valve insufficiency. Trivial tricuspid valve insufficiency. Trivial pulmonic valve insufficiency. Unable to estimate RV systolic pressure/pulmonary artery pressure due to technically difficult study. Diastolic function is indeterminate. Ordering Physician: Henrique Hogue Referring Physician: Henrique Hogue Performed By: Blu Wesley RCS
--- NOTE | 2019-01-01 11:15 | STRESSREP_ITS ---
Stress Test Report Date: 01-01-19 Procedure: Exercise tolerance test/imaging study Indications: Shortness of breath/dyspnea; CAD; PCI; CABG; ischemic mediated cardiomyopathy; preoperative cardiovascular evaluation Consent: Per the patient Procedure: The patient exercised on a Arron protocol for 6 minutes completing Stage II achieving a peak heart rate of 148 bpm (95 % predicted maximal heart rate) with a peak blood pressure 168/60 mmHg and a peak MET capacity of 7 METs. The baseline ECG demonstrated sinus bradycardia; possible anterior PR of indete rminate age; nonspecific ST and T wave abnormality. The peak exercise ECG demonstrated no obvious ECG changes. There was a rare PVC during recovery. The functional capacity was considered average. There was no complaint of chest discomfort during exercise or recovery. The examination was discontinued secondary to dyspnea and knee discomfort. Impression: 1. Technically adequate (percent predicted maximal heart rate greater than 85%) exercise tolerance test 2. Peak exercise ECG with no obvious ECG changes 3. There was a rare PVC during recovery 4. Nuclear images pending Myocardial perfusion imaging study: Technique: The patient was injected with 15.0 mCi of technetium 99m Cardiolite and subsequently rest SPECT Cardiolite nuclear imaging was obtained in the horizontal long, vertical long, and short axis views. The patient exercised on a Arron protocol for 6 minutes completing Stage II achieving a peak heart rate of 148 bpm (95 % predicted maximal heart rate) with a peak blood pressure 168/60 mmHg and a peak MET capacity of 7 METs. The patient was injected with 44.8 mCi of technetium 99m Cardiolite and subsequently stress SPECT Cardiolite nuclear imaging was obtained in the horizontal long, vertical long, and short axis views. A gated Cardiolite study at peak stress was obtained. Interpretation: Rest and stress SPECT Cardiolite nuclear imaging status post realignment, normalization, and attenuation correction, demonstrates the appearance of diminished absence of myocardial perfusion/tracer uptake in portions of the basal through mid inferior segments without significant change between rest and stress. Following stress there is notation of diminished myocardial perfusion/tracer uptake in portions of the distal inferior segments. There is diminished end systolic thickening and brightening in the aforementioned areas. The gated Cardiolite study demonstrates diminished myocardial thickening and inward wall motion in the aforementioned areas. The reported LVEF is 53 %. Impression: 1. Rest and stress SPECT Cardiolite nuclear imaging demonstrate myocardial perfusion changes appearing compatible with an area of previous myocardial injury/infarction involving portions of the basal through mid inferior segments with post stress myocardial perfusion changes appearing compatible with erlin- infarct related myocardial ischemia involving portions of the distal inferior segments however, an element contribution from soft tissue attenuation/artifact cannot be excluded. 2. The gated Cardiolite study reports an LVEF of 53 %. This note was generated with [employer] software. It may contain incorrect words, spelling, and punctuation that were not noted in checking the note before signing.
== END ==
PROVIDERS: Family Provider Family Medicine; PCP Family Medicine; Referring Provider Internal Medicine Cardiovascular Disease; Visit Provider Internal Medicine Cardiovascular Disease
DX: I25.10 Atherosclerotic heart disease of native coronary artery without angina pectoris (principal); R09.89 Other specified symptoms and signs involving the circulatory and respiratory systems
CPT/HCPCS: 78452; 93017; 93306; A9500; Q9957; A4216; C8929

== ENCOUNTER 2019-01-29 07:56 | Day surgery (SDC) | payer MEDICARE, OTHER, SELFPAY ==
[2018-12-20 08:03] VITALS: BMI 33.7
--- NOTE | 2019-01-25 03:07 | HP_ITS ---
HPI HPI History of Present Illness Surgical H&P: Yes Details: This is a 63-year-old gentleman that presents here today for an updated history and physical for an upcoming heart catheterization on January [address] Hogue. He was in our office in November 2018 for routine follow-up. He was going to be undergoing lipoma surgery we had proceeded with a cardiac evaluation with a stress test. He was noted to have an abnormal stress test and this is why we are proceeding with his diagnostic heart catheterization. He does have a history of coronary artery disease with previous stenting in 2007 and bypass surgery in 2008. He also has a history of ischemic cardiomyopathy with overall preserved LV systolic function, postoperative paroxysmal atrial fibrillation, carotid artery bruit and hyperlipidemia. From a cardiac standpoint, patient is doing well. He does not have any chest discomfort/heaviness/tightness. His work keeps him active. He does not have any worsening symptoms of shortness of breath. He does find that he has SOB with exertion though. He denies any PND. He does not have any orthopnea. He does not have any symptoms of congestive heart failure. He does not have any palpitations that he is aware of. He does not have any lightheadedness or dizziness. He does not have any near-syncope or syncope. He does not have any lower extremity edema. He does not have any symptoms of claudication. Intake Vital Signs 01/25/19 Height 5 ft 9 in 01/25/19 Weight: 228 lb 01/25/19 Body Mass Index (BMI) 33.6 01/25/19 Blood Pressure 145/75 H 01/25/19 Blood Pressure Location Lt brachial 01/25/19 Blood Pressure Position Sitting 01/25/19 Respiratory Rate 18 01/25/19 Pulse Rate 62 01/25/19 Pulse Source Monitor 01/25/19 Pulse Ox 96 Intake Visit Reasons: Update H & P Receptionist Required: No Is patient in pain?: No Allergies Penicillins Allergy (Severe, Verified 01/25/19 14:30) Unknown Medications aspirin 81 mg tablet,delayed release 81 mg PO QHS 09/06/17 [History Confirmed 01/25/19] tamsulosin 0.4 mg capsule 0.4 mg PO QHS 10/18/17 [History Confirmed 01/25/19] atorvastatin 20 mg tablet 20 mg PO QHS #90 tab 12/05/18 [Rx Confirmed 01/25/19] clopidogrel 75 mg tablet 75 mg PO DAILY #30 tab 01/25/19 [Rx Confirmed 01/25/19] [facility] Medical History Lipoma (Chronic) Postoperative atrial fibrillation (Acute) History of myocardial infarction (Acute) Atherosclerotic heart disease of [place] coronary artery without angina pectoris (Chronic) Ischemic cardiomyopathy (Chronic) Long-term use of high-risk medication (Chronic) Type 2 diabetes mellitus (Chronic) Hyperlipidemia (Chronic) Carotid bruit (Chronic) GERD (gastroesophageal reflux disease) (Acute) History of back problems (Acute) Sleep apnea (Acute) Surgical History Presence of stent in coronary artery (Chronic ~01/17/08) Aortocoronary bypass status (Chronic ~02/02/09) Postsurgical percutaneous transluminal coronary angioplasty (PTCA) status (Chronic) Family History Mother CAD (coronary artery disease) Hypertension Sister Hypertension Breast cancer Father Cancer Brother Cancer leukemia/lymphoma Social History (Updated 01/25/19 @ 15:11 by CECILIA Chamberlain) Smoking Status: Former smoker alcohol intake: never substance use type: does not use ROS Const Const: Negative for fatigue, weakness, fever(s) or headache(s) Eyes Eyes: Negative for blind spots, loss of peripheral vision or transient loss of vision ENT ENT: Negative for headache(s), dizziness, tinnitus or Nosebleed/epistaxis Cardio Chest Pain: No Palpitations: No Edema: None Muscle aches with walking: None Resp Respiratory: Negative for SOB with activity, SOB at rest, SOB orthopnea\SOB lying down or Cough GI GI: Negative nausea, vomiting, heartburn or vomiting blood/hematemesis : Negative for hematuria Musc Musc: Negative for muscle aches/ myalgia Neuro Neuro: Negative for dizziness, lightheadedness, near syncope, syncope, orthostatic symptoms, headache(s) or weakness Christos Hematologic/Lymphatic: Negative for easy bleeding Endo Endo: Negative for fatigue Cardiology Exam Const Appearance: cooperative, healthy appearing, comfortable, no acute distress, well developed and well groomed Nutritional Appearance: overweight Orientation: alert, awake and oriented x3 Head Head: normal to inspection, normocephalic and atraumatic Ears: hearing grossly normal bilaterally Nose: external nose normal Face and Sinus: face symmetric Mouth: oral mucosae normal Teeth and gingiva: fair dentition Eyes Eyelids: eyelids normal Conjunctivae: conjunctivae normal Pupils: PERRL EOM: EOM intact bilaterally Neck Neck: normal visual inspection and full ROM Carotids: normal carotid upstroke Chest Chest inspection: normal inspection of the chest, symmetric chest movement and normal respiratory effort Auscultation: Bilateral: Clear to Auscultation Cardio Palpation: normal PMI Rate: regular rate Rhythm: regular rhythm Heart sounds: S1 normal and S2 normal GI GI: normal to inspection, soft and bowel sounds present Neuro General: alert, awake, oriented x3 and moves all extremities Extremities Pulses: Normal: Right Radial Pulse, Left Radial Pulse Lower Extremity Edema: None: Bilateral Psych Psychological: normal affect Assessment & Plan 1. Atherosclerosis of [place] coronary artery of [place] heart without angina pectoris I25.10 CABG x5- MUELLER to LAD, SVG to the continuation branch of the RCA, SVG to the PDA, SVG to the ramus of CX, and SVG to the 1st diagonal of the anteiordescending 02/02/09 Plan Patient did have an abnormal stress test. He is scheduled to undergo a diagnostic heart catheterization on January [address] Hogue. Based upon results of heart catheterization will then evaluate for preoperative assessment. He will continue with his aspirin. 2. Cardiomyopathy, ischemic I25.5 Plan Patient does have a lower ejection fraction of 45%. He is currently not on an LARA or arm or a beta-shlomo. We will reevaluate this after his diagnostic heart catheterization. He he is not symptomatic. 3. Postoperative atrial fibrillation I97.89; I48.91 Plan Patient has not had any further atrial fib that he is aware of. He will continue with his aspirin. 4. Hyperlipidemia, unspecified hyperlipidemia type E78.5 Plan Patient will continue with his low-dose aspirin. These are managed by his primary care doctor. Plan Detail Other Medications New: clopidogrel 75 mg PO DAILY 30 tabs 3RF Additional Comments Thank you for allowing us to participate in patient's plan of care, if you have any questions please do not hesitate to call. This note was generated using a voice recognition system and there may be incorrect words, spelling or punctuation errors that were not noted when reviewing the office note prior to saving. Follow Up 01/25/19 (keep as is) Coding Level of Care Code Off vis,est,level 4 Diagnoses Atherosclerosis of [place]ga[place] coronary artery of [place] heart without angina pectoris I25.10 ??[place] vs. transplanted heart: alga[place]q heart Cardiomyopathy, ischemic I25.5 Postoperative atrial fibrillation I97.89; I48.91 Hyperlipidemia, unspecified hyperlipidemia type E78.5 ??Hyperlipidemia type: unspecified Coding Level of Care Code Off vis,est,level 4 Diagnoses Atherosclerosis of [place] coronary artery of [place] heart without angina pectoris I25.10 ??[place] vs. transplanted heart: [place] heart Cardiomyopathy, ischemic I25.5 Postoperative atrial fibrillation I97.89; I48.91 Hyperlipidemia, unspecified hyperlipidemia type E78.5 ??Hyperlipidemia type: unspecified Supplemental Info Supplemental Information Echocardiogram in 2019 demonstrated: The study was technically difficult. Contrast injection was performed. Mild segmental systolic dysfunction (see wall motion). The estimated ejection fraction is 45 %. The left atrium is mildly enlarged. Trivial mitral valve insufficiency. Trivial tricuspid valve insufficiency. Trivial pulmonic valve insufficiency. Unable to estimate RV systolic pressure/pulmonary artery pressure due to technically difficult study. Diastolic function is indeterminate. Stress test in 2019: Rest and stress SPECT Cardiolite nuclear imaging demonstrate myocardial perfusion changes appearing compatible with an area of previous myocardial injury/infarction involving portions of the basal through mid inferior segments with post stress myocardial perfusion changes appearing compatible with erlin- infarct related myocardial ischemia involving portions of the distal inferior segments however, an element contribution from soft tissue attenuation/artifact cannot be excluded. The gated Cardiolite study reports an LVEF of 53 %. Diagnostics Electrocardiogram 12/05/18 Echocardiogram 01/01/19 Stress Test Nuclear Medicine 01/01/19 Stress Test 01/01/19 Chest X-Ray 06/10/18 01/25/19 1511 <Electronically signed by Malaika Sanchez> Date _ Malaika BROOKS I have re-examined the patient. There are no clinical changes since date of exam.
[2019-01-25 14:30] VITALS: BMI 33.6
--- NOTE | 2019-01-25 15:30 | RAD_ITS ---
STUDY: X-RAY CHEST REASON FOR EXAM: Male, 63 years old. Coronary artery disease. TECHNIQUE: PA and lateral views of the chest. COMPARISON: 06/10/2018. FINDINGS: There is mild left basilar atelectasis, remainder of the lungs are clear and expanded. There is no demonstrated pleural abnormality. Sternal cerclage wires are present from a prior sternotomy. Heart maintains normal size. Normal mediastinum and jimy. Normal visualized pulmonary arteries. Normal visualized aortic arch and descending thoracic aorta. Normal visualized thoracic spine. Normal visualized ribs, clavicles, and shoulders. There is no demonstrated abnormality of the visualized soft tissue structures of the upper abdomen. RAD/Chest PA and Lateral IMPRESSION: Postoperative changes as described above along with minimal left basilar atelectasis, stable study in the interval. Electronically Signed: Marisela Ramos MD at 4:09 EST , Service support ,
[2019-01-25 15:53] LABS: Hematocrit 45.7 % (40-54); Hemoglobin 14.4 g/dL (13.0-16.5); Mean Corp Hgb Conc 31.5 g/dL (32-36); Mean Corpuscular Hgb 27.1 pg (27.0-32.0); Mean Corpuscular Volume 85.9 fL (80-94); Mean Platelet Vol. 9.5 fl (6.2-12.0); Platelet Count 232 K/mm3 (150-450); RBC Distribution Width CV 13.8 % (11.6-14.6); RBC Distribution Width SD 42.7 fl (35.1-43.9); Red Blood Count 5.32 M/mm3 (4.6-6.2); White Blood Count 5.6 K/mm3 (4.4-11.0)
[2019-01-25 16:10] LABS: Anion Gap 6 (5-15); BUN 16 mg/dL (7-18); BUN/Creat Ratio 15.5 RATIO (10-20); Calcium,Total 8.5 mg/dL (8.5-10.1); Chloride 103 mmol/L (98-107); Creatinine, Serum 1.03 mg/dL (0.70-1.30); EST Glomerular Filtration Rate 77 mL/min (>60); Est Glom Filt Rate - Afr Amer 93 mL/min (>60); Glucose 113 mg/dL (74-106); Potassium 4.4 mmol/L (3.5-5.1); Sodium Level 139 mmol/L (136-145)
[2019-01-25 16:13] LABS: International Normalized Ratio 1.1; Prothrombin Time (Protime)PT. 13.5 SECONDS (11.7-14.9)
[2019-01-25 16:14] LABS: Partial Thromboplast Time 28.7 Seconds (24.1-36.2)
[2019-01-28 09:43] VITALS: BMI 33.6
--- NOTE | 2019-01-29 10:43 | CL.D_ITS ---
Patient Name: ELENITA PORTILLO Study Date: 01/29/2019 Performing: Henrique Hogue MD Ht: 68.89 inches 175 cm : 1955 Wt: 227.08 lbs 103 kg Age: 63 Gender: male BSA: 2.18 PROCEDURE(S) PERFORMED [id number]/COR/LV/CABG CLINICAL PROFILE AND INDICATIONS Indications: Suspected CAD Heart Failure: None Stress/Imaging Date: 01/01/2019Stress Test with SPECT MPI: Positive Angina Classification Anginal Classification w/in 2 Weeks: CCS II CAD Presentations: Other: shortness of breath / angina pectoris equivalent CONCLUSIONS Elevated Left Ventricular End Diastolic Pressure Segmented LV systolic dysfunction- Mild LVEF: by LV gram 45 % Mechoopda Multivessel CAD MUELLER to LAD: patent SVG to DX2 and sequential to IR: patent SVG to RCA: patent RECOMMENDATIONS Risk factor modification Medical therapy DESCRIPTION OF PROCEDURE The patient arrived to the procedure lab. The risks and benefits of the procedure as well as a full d escription of our services here and current unavailability of surgical backup were fully explained to the patient and/or their significant other prior to the catheterization. The Timeout was completed, verifying the correct patient and procedure. The patient's procedural site was prepped and draped in the usual fashion. Local anesthetic was given subcutaneously to right groin region with Lidocaine 2%. Using a modified Seldinger technique, arterial access was obtained via the right femoral artery, a 4 Fr sheath was inserted Left Coronary Artery selective angiography was performed in multiple views us ing a 4 Fr. JL5 catheter. Right Coronary Artery selective angiography was then performed in multiple views using a 4 Fr. 3DRC catheter. Saphenous Vein graft to the Ramus selective angiography was perfor med in multiple views using a 4 Fr. 3DRC catheter sequential to Diag 1. Saphenous Vein graft to the DIAG 1 selective angiography was performed in multiple views using a 4 Fr. 3DRC (Frank s) catheter sequential to Ramus. Saphenous Vein graft to the RCA selective angiography was performed in multiple views using a 4 Fr. JR4 catheter sequential to PDA. Saphenous Vein graft to the RPDA rachel ctive angiography was performed in multiple views using a 4 Fr. JR4 catheter sequential to RCA. Left internal mammary artery graft to the LAD selective angiography was performed in multiple views using a 4 Fr. JR4 catheter. Saphenous Vein graft to the RCA selective angiography was performed in multiple views using a 4 Fr. MPA 2 catheter sequential to PDA. Left Ventriculography was performed in HUMPHREYS pro jection using a 4 Fr. Pigtail catheter. LV to AO pullback pressures were then recorded.The arterial s karel was pulled and manual compression applied until hemostasis is achieved. CORONARY ANGIOGRAPHY DOMINANCE: Right Dominant LEFT HEART ASSESSMENT Left Ventricular Ejection Fraction: by LV Gram 45 % Apical (anterior apical) Hypokinesis. Inferior Basal Hypokinesis. Inferior Mid Akinesis. Inferior Api serena Hypokinesis Elevated Left Ventricular End Diastolic Pressure LVEDP: 17 mmHg LEFT MAIN: Angiographically normal LEFT ANTERIOR DESCENDING ARTERY: PROX LAD: Mild calcification, Mild luminal irregularities MID LAD: diffuse: 10 - 25 % Stenosis, eccentric: 75 % Stenosis CIRCUMFLEX ARTERY: small nondominant vessel PROX CIRC: eccentric: 25 % Stenosis RIGHT CORONARY ARTERY: Mild luminal irregularities PROX RCA: diffuse: eccentric: 25 % Stenosis MID RCA: 50 % Stenosis DISTAL RCA: subtotally occluded RT PDA: Proximal - Previously placed stent is patent GRAFTS: MUELLER graft to the Mid LAD is patent with non angiographically significant appearing disease distal t o the graft attachment Saphenous Vein graft to the 2nd Diagonal is patent with a sequential portion patent to the intermedia te ramus with no angiographically significant appearing disease distal to the graft attachments Saphenous Vein graft to the 2nd Diagonal is patent with a sequential portion patent to the intermedia te ramus with no angiographically significant appearing disease distal to the graft attachments Saphenous Vein graft to the RCA is patent providing flow to the RPDA, RAVS, and RPL branches with no angiographically significant appearing disease distal to the graft attachment (of note: the SVG graft to the RCA was listed as sequential graft to the continuation of the RCA and to the RPDA) COMPLICATIONS No Complications PROCEDURE MEDICATIONS Versed 1 mg IV Oxygen: 2 L/min via nasal cannula SUMMARY OF HEMODYNAMIC DATA Time AIR REST ECG 08:21:49 AO 132/74 (99) SA 09:42:50 LV 146/-5, 20 10:02:55 LV 145/-4, 17 10:03:01 LV 143/-5, 19 10:04:00 LVp 146/-12, 17 10:04:06 AOp 129/66 (92) 10:04:11 Signed By Henrique Hogue MD On 01/29/2019 10:42:15 Henrique Hogue MD
== END 2019-01-29 14:36 | disposition home or self-care (01) ==
PROVIDERS: Family Provider Family Medicine; PCP Family Medicine; Referring Provider Internal Medicine Cardiovascular Disease; Visit Provider Internal Medicine Cardiovascular Disease
DX: I25.119 Atherosclerotic heart disease of native coronary artery with unspecified angina pectoris (principal); R94.39 Abnormal result of other cardiovascular function study; I25.5 Ischemic cardiomyopathy; E78.5 Hyperlipidemia, unspecified; I48.0 Paroxysmal atrial fibrillation; R09.89 Other specified symptoms and signs involving the circulatory and respiratory systems; Z95.5 Presence of coronary angioplasty implant and graft; Z95.1 Presence of aortocoronary bypass graft; Z88.0 Allergy status to penicillin; Z79.02 Long term (current) use of antithrombotics/antiplatelets; Z79.82 Long term (current) use of aspirin; Z87.891 Personal history of nicotine dependence; R06.02 Shortness of breath
CPT/HCPCS: 36415; 71046; 80048; 85027; 85610; 85730; 93459; 99152; 99153; J7040; Q9967; C1769; C1894

== ENCOUNTER → 2019-08-19 21:00 | Outpatient (CLI) | payer MEDICARE, OTHER, SELFPAY ==
[2019-08-06 06:24] VITALS: BMI 32.5
== END ==
PROVIDERS: PCP Family Medicine; Visit Provider Internal Medicine Critical Care Medicine
DX: G47.33 Obstructive sleep apnea (adult) (pediatric) (principal)
CPT/HCPCS: 95811

== ENCOUNTER → 2020-11-24 08:31 | Outpatient (CLI) | payer MEDICARE, OTHER, SELFPAY ==
[2020-11-24 10:05] LABS: Absolute Lymphocyte Count 1.06 X10^3/uL (0.83-4.51); Basophil# 0.02 X10^3/uL; Basophil% 0.3 % (0-1); Eosinophil# 0.08 X10^3/uL; Eosinophils% 1.4 % (0-5); Hematocrit 49.1 % (40-54); Hemoglobin 15.9 g/dL (13.0-16.5); Lymphocyte # 1.06 X10^3/ul (0.83-4.51); Lymphocyte % 18.2 % (19-41); Mean Corp Hgb Conc 32.4 g/dL (32-36); Mean Corpuscular Hgb 27.5 pg (27.0-32.0); Mean Corpuscular Volume 84.9 fL (80-94); Mean Platelet Vol. 9.4 fl (6.2-12.0); Monocyte# 0.63 X10^3/uL; Monocyte% 10.8 % (0-10); NRBC Flagged by Analyzer 0 % (0-5); Neutrophil # 4.04 X10^3/uL (2.7-7.7); Neutrophil % 69.1 % (47-70); Platelet Count 233 K/mm3 (150-450); RBC Distribution Width CV 13.7 % (11.6-14.6); RBC Distribution Width SD 42.5 fl (35.1-43.9); Red Blood Count 5.78 M/mm3 (4.6-6.2); White Blood Count 5.8 K/mm3 (4.4-11.0)
[2020-11-24 10:28] LABS: BNP,B-Type NATRIURETIC PEPTIDE 40.3 pg/mL (0-100)
[2020-11-24 10:45] LABS: AST(SGOT) 25 U/L (15-37); Alanine Aminotransfer ALT/SGPT 41 U/L (16-61); Albumin, Serum 3.5 g/dL (3.2-5.0); Alkaline Phosphatase 56 U/L (45-117); Anion Gap 5 (5-15); BUN 19 mg/dL (7-18); BUN/Creat Ratio 17.8 RATIO (10-20); Calcium,Total 8.9 mg/dL (8.5-10.1); Chloride 106 mmol/L (98-107); Cholesterol 93 mg/dL (200); Creatinine, Serum 1.07 mg/dL (0.70-1.30); EST Glomerular Filtration Rate 73 mL/min (>60); Est Glom Filt Rate - Afr Amer 89 mL/min (>60); Globulin 3.4 g/dL (2.2-4.2); Glucose 105 mg/dL (74-106); High Density Lipoprotein 54 mg/dL; Potassium 4.1 mmol/L (3.5-5.1); Protein, Total 6.9 g/dL (6.4-8.2); Sodium Level 139 mmol/L (136-145); Triglycerides 53 mg/dL; Very Low Density Lipoprotein 11 mg/dL (5-40)
== END ==
PROVIDERS: PCP Family Medicine; Referring Provider Nurse Practitioner Gerontology; Visit Provider Nurse Practitioner Gerontology
DX: E78.5 Hyperlipidemia, unspecified (principal); R53.83 Other fatigue; I10 Essential (primary) hypertension; R06.02 Shortness of breath
CPT/HCPCS: 36415; 80053; 80061; 83880; 85025

== ENCOUNTER → 2020-12-01 07:54 | Outpatient (CLI) | payer MEDICARE, OTHER, SELFPAY ==
--- NOTE | 2020-12-01 07:56 | ECHOCS_ITS ---
Reason For Study: Dyspnea/SOB Procedure This was a 2D Doppler, Color Flow transthoracic echocardiogram. Technically difficult study due to patients body habitus. Contrast injection performed. The study was technically difficult. Contrast injection was performed. Exam performed in department. Left Ventricle Normal LV size. Mild segmental systolic dysfunction (see wall motion). The estimated ejection fraction is 45 %. No evidence for diastolic dysfunction. Infero-Basal: Akinetic. Basal inferoseptal: Akinetic. Mid-Anterior : Hypokinetic. Mid-Lateral : Hypokinetic. Mid-Posterior: Hypokinetic. Mid- Inferior: Akinetic. Mid-inferoseptal : Akinetic. Mid-anteroseptal : Hypokinetic. Inferior [place] : Hypokinetic. Right Ventricle Normal RV size. Normal systolic function. Atria Normal left atrium. Normal right atrium. No doppler evidence for ASD. Mitral Valve There is no mitral annular calcification. Normal mitral valve. Mild (1+) mitral valve insufficiency. Tricuspid Valve Normal tricuspid valve. Trivial tricuspid valve insufficiency. Unable to estimate RV systolic pressure/pulmonary artery pressure due to technically difficult study. Aortic Valve Trisinus/trileaflet aortic valve. Normal aortic valve. Pulmonic Valve The pulmonic valve is not well visualized. Trivial pulmonic valve insufficiency. Great Vessels The aortic root is not well visualized. Pericardium/Pleural No pericardial effusion. Medication 22 gauge I.V. with prn adaptor inserted into right arm. Diluted definity 5ml given slow IV push to enhance endocardial definition. MMode/2D Measurements & Calculations LVIDd: 5.0 cm IVSd: 1.1 cm LAV(MOD-bp): 69.9 ml LVIDs: 3.6 cm LVPWd: 1.3 cm FS: 28.4 % LAV(MOD-bp) Indexed: 32.3 ml/m2 LAV(MOD-sp2): 70.8 ml LAV(MOD-sp4): 72.4 ml LA A4 area: 22.0 cm2 Time Measurements MV dec time: 0.23 sec Doppler Measurements & Calculations MV E max shakeel: 90.7 cm/sec Lat Peak E' Shakeel: 10.8 cm/sec Med Peak E' Shakeel: 8.6 cm/sec MV A max shakeel: 73.1 cm/sec E/E' lat: 8.4 E/E' med: 10.5 MV E/A: 1.2 MV V2 max: 93.6 cm/sec MV P1/2t max shakeel: 95.1 cm/sec Ao V2 max: 130.3 cm/sec MV max P.5 mmHg MV P1/2t: 103.1 msec Ao max P.8 mmHg MV V2 mean: 46.4 cm/sec MV mean P.0 mmHg MV dec slope: 270.1 cm/sec2 MV V2 VTI: 34.5 cm MVA(P1/2t): 2.1 cm2 LV V1 max: 103.0 cm/sec PA V2 max: 92.5 cm/sec LV V1 max P.2 mmHg ECHO/Echo Complete W/ Contrast Interpretation Summary The study was technically difficult. Contrast injection was performed. Mild segmental systolic dysfunction (see wall motion). The estimated ejection fraction is 45 %. Trivial tricuspid valve insufficiency. Trivial pulmonic valve insufficiency. Unable to estimate RV systolic pressure/pulmonary artery pressure due to techni jonny difficult study. No evidence for diastolic dysfunction. Ordering Physician: Faith Brown Referring Physician: Sheree Peng Performed By: Blu Wesley RCS
== END ==
PROVIDERS: PCP Family Medicine; Referring Provider Nurse Practitioner Gerontology; Visit Provider Nurse Practitioner Gerontology
DX: R06.00 Dyspnea, unspecified (principal); R06.02 Shortness of breath
CPT/HCPCS: 93306; Q9957; A4216; C8929; J3490

== ENCOUNTER → 2021-08-27 | Outpatient (CLI) | payer MEDICARE, OTHER, SELFPAY ==
[2021-08-27 10:03] LABS: Absolute Lymphocyte Count 0.83 X10^3/uL (0.83-4.51); Basophil# 0.02 X10^3/uL; Basophil% 0.4 % (0-1); Eosinophils% 1.8 % (0-5); Hematocrit 47.6 % (40-54); Hemoglobin 15.3 g/dL (13.0-16.5); Lymphocyte # 0.83 X10^3/ul (0.83-4.51); Mean Corp Hgb Conc 32.1 g/dL (32-36); Mean Corpuscular Hgb 27.5 pg (27.0-32.0); Mean Corpuscular Volume 85.6 fL (80-94); Mean Platelet Vol. 9.6 fl (6.2-12.0); Monocyte# 0.61 X10^3/uL; Monocyte% 11.1 % (0-10); NRBC Flagged by Analyzer 0 % (0-5); Neutrophil # 3.95 X10^3/uL (2.7-7.7); Neutrophil % 71.5 % (47-70); Platelet Count 232 K/mm3 (150-450); RBC Distribution Width CV 13.7 % (11.6-14.6); RBC Distribution Width SD 43.2 fl (35.1-43.9); Red Blood Count 5.56 M/mm3 (4.6-6.2); White Blood Count 5.5 K/mm3 (4.4-11.0)
[2021-08-27 10:22] LABS: Hemoglobin A1c 5.9 % (3.8-5.6)
[2021-08-27 10:25] LABS: ALB/GLOB Ratio 1.2 RATIO (0.9-2.4); AST(SGOT) 24 U/L (15-37); Alanine Aminotransfer ALT/SGPT 39 U/L (16-61); Albumin, Serum 3.5 g/dL (3.2-5.0); Alkaline Phosphatase 61 U/L (45-117); Anion Gap 6 (5-15); BUN 18 mg/dL (7-18); BUN/Creat Ratio 17.8 RATIO (10-20); Calcium,Total 8.5 mg/dL (8.5-10.1); Chloride 107 mmol/L (98-107); Cholesterol 97 mg/dL (200); Creatinine, Serum 1.01 mg/dL (0.70-1.30); EST Glomerular Filtration Rate 78 mL/min (>60); Est Glom Filt Rate - Afr Amer 95 mL/min (>60); Glucose 112 mg/dL (74-106); High Density Lipoprotein 53 mg/dL; Potassium 4.2 mmol/L (3.5-5.1); Protein, Total 6.5 g/dL (6.4-8.2); Sodium Level 138 mmol/L (136-145); Thyroid Stim Hormone (TSH) 2.16 uIU/mL (0.358-3.74); Triglycerides 71 mg/dL; Very Low Density Lipoprotein 14 mg/dL (5-40)
== END | disposition home or self-care (01) ==
LOC: MTLAB 08:04
PROVIDERS: PCP Family Medicine; Referring Provider Family Medicine; Visit Provider Family Medicine
DX: R73.03 Prediabetes (principal); I25.10 Atherosclerotic heart disease of native coronary artery without angina pectoris; R97.20 Elevated prostate specific antigen [PSA]
CPT/HCPCS: 36415; 80053; 80061; 83036; 84443; 85025

== ENCOUNTER → 2021-10-19 | Outpatient (CLI) | payer MEDICARE, OTHER, SELFPAY ==
--- NOTE | 2021-10-19 09:40 | STRESSREP_ITS ---
Stress Test Report Date: 10-19-2021 Procedure: Pharmacologic stress nuclear imaging study Indications: CAD, CABG, ischemic mediated cardiomyopathy, postoperative atrial fibrillation, carotid artery disease, hyperlipidemia Consent: Per the patient Procedure: The patient underwent pharmacologic (Regadenoson 0.4mg ) evaluation with a peak heart rate of 80 beats per minute (52%predicted maximal heart rate) and a peak blood pressure of 154/62 mmHg. The baseline ECG demonstrated sinus bradycardia; poor R wave progression; anterior lateral CO of indeterminate age cannot be excluded. The peak pharmacologic ECG demonstrated no obvious ECG changes. There were no cardiac dysrhythmias pretest, during pharmacologic infusion, or recovery. There was no complaint of chest discomfort during pharmacologic infusion or recovery. The examination was discontinued secondary to completion of protocol. Impression: 1. Pharmacologic (Regadenoson) evaluation 2. Peak pharmacologic ECG with no obvious ECG changes. 3. There were no cardiac dysrhythmias pretest, during pharmacologic infusion, or recovery. 4. Nuclear images pending Myocardial perfusion imaging study: Technique: The patient was injected with 14.9 millicuries of technetium 99m Cardiolite and subsequently rest SPECT Cardiolite nuclear imaging was obtained in the horizontal long, vertical long, and short axis views. The patient underwent pharmacologic (Regadenoson) evaluation with a peak heart rate of 80 beats per minute (52% percent predicted maximal heart rate) and a peak blood pressure of 154/62 mmHg. The patient was injected with 44.7 millicuries of technetium 99m Cardiolite and subsequently stress SPECT Cardiolite nuclear imaging was obtained in the horizontal long, vertical long, and short axis views. A gated Cardiolite study at peak stress was obtained. Interpretation: Rest and stress SPECT Cardiolite nuclear imaging status post realignment, normalization, and attenuation correction demonstrate the appearance of diminished absence of myocardial perfusion/tracer uptake in portions of the basal towards distal inferior segments which status post stress appears to be somewhat more prominent in the inferior apical segment. There is diminished end-systolic thickening and brightening. The gated Cardiolite study demonstrates diminished myocardial thickening and inward wall motion. The reported LVEF is 49%. Impression: 1. Rest and stress SPECT Cardiolite nuclear imaging demonstrate myocardial perfusion changes appearing compatible with an area of previous myocardial injury/infarction involving portions of the basal towards distal inferior segments with post stress myocardial perfusion changes appearing compatible with an element of mild erlin-infarct related myocardial ischemia in the inferior apical segment. 2. The gated Cardiolite study reports an LVEF of 49%. This note was generated with [employer] dictation software. It may contain incorrect words, spelling, and punctuation that were not noted in checking the note before signing.
== END | disposition home or self-care (01) ==
LOC: CVS 06:32
PROVIDERS: PCP Family Medicine; Referring Provider Physician Assistant Medical; Visit Provider Physician Assistant Medical
DX: I25.10 Atherosclerotic heart disease of native coronary artery without angina pectoris (principal)
CPT/HCPCS: 78452; 93017; A9500; A4216; J2785

== ENCOUNTER → 2022-03-17 | Outpatient (CLI) | payer MEDICARE, OTHER, SELFPAY | END | disposition home or self-care (01) | PROVIDERS: PCP Family Medicine; Referring Provider Urology; Visit Provider Urology | DX: R97.20 Elevated prostate specific antigen [PSA] (principal) | CPT/HCPCS: 36415; 84153 ==

== ENCOUNTER → 2022-06-02 | Outpatient (CLI) | payer MEDICARE, OTHER, SELFPAY | END | disposition home or self-care (01) | LOC: LABSPEC 16:42 | PROVIDERS: PCP Family Medicine; Visit Provider Urology | DX: R97.20 Elevated prostate specific antigen [PSA] (principal) ==

== ENCOUNTER → 2022-06-21 | Outpatient (CLI) | payer MEDICARE, OTHER, SELFPAY ==
--- NOTE | 2022-06-21 16:00 | PROSBIL_PTH ---
PATIENT: ELENITA PORTILLO LOC: [facility] U#:[id number] AGE/SX: 66/M ROOM: RE06/21/[address]: Dr. Esau Avalos MD : 1955 BED: DIS: 06/21/2022 SPEC #: [id number] RECD: 06/21/22 17:00 STATUS: PRIMO REFUGIO #: [id number] SIS: 06/21/22 16:[address]: Esau Avalos DEPT: SURGICAL PATHOLOGY RECD BY: Ella Frey ENTERED: 06/22/22 11:04 SP TYPE: PROST BX BETTY DR: Dr. Sheree Peng MD Tissues: A - PROSTATE RIGHT B - PROSTATE RIGHT C - PROSTATE RIGHT D - PROSTATE LEFT E - PROSTATE LEFT F - PROSTATE LEFT Procedures: PROSTATE BX HEADER OPERATION: Prostate biopsy PRE-OP DIAGNOSIS: Elevated PSA TISSUE SUBMITTED: A - Right apex, B - Right mid, C - Right base, D - Left apex, E - Left mid, F - Left base MICROSCOPIC DIAGNOSIS A. Right prostate, apex, core biopsy: Glandular atrophy and minimal chronic inflammation. B. Right prostate, mid, core biopsy: Focal glandular atrophy and minimal chronic inflammation. C. Right prostate, base, core biopsy: Benign prostatic tissue. D. Left prostate, apex, core biopsy: Benign prostatic tissue. E. Left prostate, mid, core biopsy: Glandular atrophy and mild chronic inflammation. F. Left prostate, base, core biopsy: Glandular atrophy. Chronic inflammation with focal acute inflammation. AM:marlo 06/23/2022 MICROSCOPIC DESCRIPTION Slides are reviewed. GROSS DESCRIPTION A - Received is one container designated prostate, right apex. The specimen consists of one elongated fragment of light torres-white soft tissue measuring 1.2 cm in length and 0.1 cm in diameter. The specimen is totally submitted in one cassette. B - Received is one container designated prostate, right mid. The specimen consists of two elongated fragments of light torres-white soft tissue measuring 0.8 and 1.0 cm in length and 0.1 cm in diameter. The specimen is totally submitted in one cassette. C - Received is one container designated prostate, right base. The specimen consists of one elongated fragment of light torres-white soft tissue measuring 1.2 cm in length and 0.1 cm in diameter. The specimen is totally submitted in one cassette. D - Received is one container designated prostate, left apex. The specimen consists of one elongated fragment of light torres-white soft tissue measuring 1.5 cm in length and 0.1 cm in diameter. The specimen is totally submitted in one cassette. E - Received is one container designated prostate, left mid. The specimen consists of two elongated fragments of light torres-white soft tissue measuring 1.2 and 1.5 cm in length and 0.1 cm in diameter. The specimen is totally submitted in one cassette. F - Received is one container designated prostate, left base. The specimen consists of one elongated fragment of light torres-white soft tissue measuring 1.5 cm in length and 0.1 cm in diameter. The specimen is totally submitted in one cassette. / SJ:rg 06/22/2022 TC:2 CPT: G0146
== END | disposition home or self-care (01) ==
LOC: LABSPEC 16:58
PROVIDERS: PCP Family Medicine; Referring Provider Urology; Visit Provider Urology
DX: R97.20 Elevated prostate specific antigen [PSA] (principal)
CPT/HCPCS: 88305; G0416

== ENCOUNTER → 2022-11-28 | Outpatient (CLI) | payer MEDICARE, OTHER, SELFPAY ==
[2022-11-28 12:21] LABS: Absolute Lymphocyte Count 0.83 X10^3/uL (0.83-4.51); Absolute Neutrophil Count 3.6 X10^3/uL (2.0-7.7); Basophil# 0.02 X10^3/uL; Basophil% 0.4 % (0-1); Eosinophil# 0.11 X10^3/uL; Eosinophils% 2.1 % (0-5); Hematocrit 48.6 % (40-54); Hemoglobin 15.3 g/dL (13.0-16.5); Lymphocyte # 0.83 X10^3/ul (0.83-4.51); Lymphocyte % 16.2 % (19-41); Mean Corp Hgb Conc 31.5 g/dL (32-36); Mean Corpuscular Hgb 27.8 pg (27.0-32.0); Mean Corpuscular Volume 88.4 fL (80-94); Mean Platelet Vol. 10.4 fl (6.2-12.0); Monocyte% 11.7 % (0-10); NRBC Flagged by Analyzer 0 % (0-5); Neutrophil # 3.56 X10^3/uL (2.7-7.7); Neutrophil % 69.4 % (47-70); Platelet Count 268 K/mm3 (150-450); RBC Distribution Width CV 13.6 % (11.6-14.6); White Blood Count 5.1 K/mm3 (4.4-11.0)
[2022-11-28 12:43] LABS: Vitamin B12 389 pg/mL (211-911)
[2022-11-28 12:48] LABS: ALB/GLOB Ratio 1.1 RATIO (0.9-2.4); AST(SGOT) 19 U/L (15-37); Alanine Aminotransfer ALT/SGPT 30 U/L (16-61); Albumin, Serum 3.5 g/dL (3.2-5.0); Alkaline Phosphatase 52 U/L (45-117); Anion Gap 5 (5-15); BUN 21 mg/dL (7-18); BUN/Creat Ratio 20.4 RATIO (10-20); Calcium,Total 8.8 mg/dL (8.5-10.1); Chloride 106 mmol/L (98-107); Cholesterol 138 mg/dL (200); Creatinine, Serum 1.03 mg/dL (0.70-1.30); EST Glomerular Filtration Rate 76 mL/min (>60); Est Glom Filt Rate - Afr Amer 92 mL/min (>60); Globulin 3.3 g/dL (2.2-4.2); Glucose 114 mg/dL (74-106); High Density Lipoprotein 55 mg/dL; Potassium 4.5 mmol/L (3.5-5.1); Protein, Total 6.8 g/dL (6.4-8.2); Sodium Level 141 mmol/L (136-145); Triglycerides 78 mg/dL; Very Low Density Lipoprotein 16 mg/dL (5-40)
== END | disposition home or self-care (01) ==
LOC: BFHLAB 09:13
PROVIDERS: PCP Family Medicine; Referring Provider Family Medicine; Visit Provider Family Medicine
DX: R73.03 Prediabetes (principal); I25.10 Atherosclerotic heart disease of native coronary artery without angina pectoris; R53.83 Other fatigue
CPT/HCPCS: 36415; 80053; 80061; 82607; 84443; 85025

== ENCOUNTER 2023-01-25 17:00 | Emergency (ER) | payer OTHER, MEDICARE, SELFPAY ==
[2023-01-25 17:01] VITALS: BP 143/78; PULSE 83; RESP 18; TEMP 36.6; O2SAT 93; BMI 33.1
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
[2023-01-25] MEDS: fentaNYL 100 MCG/2 ML Ampul 50 MCG IV (17:34)
[2023-01-25] MEDS: Ondansetron 4 MG/2 ML Vial IV (17:34)
[2023-01-25 17:43] LABS: Absolute Lymphocyte Count 0.96 X10^3/uL (0.83-4.51); Absolute Neutrophil Count 10.7 X10^3/uL (2.0-7.7); Basophil# 0.03 X10^3/uL; Basophil% 0.2 % (0-1); Eosinophil# 0.02 X10^3/uL; Eosinophils% 0.2 % (0-5); Hematocrit 45.1 % (40-54); Hemoglobin 14.7 g/dL (13.0-16.5); Lymphocyte # 0.96 X10^3/ul (0.83-4.51); Lymphocyte % 7.7 % (19-41); Mean Corp Hgb Conc 32.6 g/dL (32-36); Mean Corpuscular Hgb 27.8 pg (27.0-32.0); Mean Corpuscular Volume 85.4 fL (80-94); Mean Platelet Vol. 9.8 fl (6.2-12.0); Monocyte# 0.69 X10^3/uL; Monocyte% 5.5 % (0-10); NRBC Flagged by Analyzer 0 % (0-5); Neutrophil # 10.71 X10^3/uL (2.7-7.7); Neutrophil % 85.6 % (47-70); Platelet Count 245 K/mm3 (150-450); RBC Distribution Width CV 13.8 % (11.6-14.6); RBC Distribution Width SD 43.1 fl (35.1-43.9); Red Blood Count 5.28 M/mm3 (4.6-6.2); White Blood Count 12.5 K/mm3 (4.4-11.0)
[2023-01-25 17:55] LABS: International Normalized Ratio 1.1; Prothrombin Time (Protime)PT. 14.1 SECONDS (11.7-14.9)
[2023-01-25 17:56] LABS: Partial Thromboplast Time 24.9 Seconds (24.1-36.2)
[2023-01-25 18:04] LABS: AST(SGOT) 40 U/L (15-37); Alanine Aminotransfer ALT/SGPT 41 U/L (16-61); Albumin, Serum 3.6 g/dL (3.2-5.0); Alkaline Phosphatase 54 U/L (45-117); Anion Gap 4 (5-15); BUN 20 mg/dL (7-18); BUN/Creat Ratio 18.5 RATIO (10-20); Bilirubin, Direct 0.21 mg/dL (0.00-0.30); Calcium,Total 8.8 mg/dL (8.5-10.1); Chloride 105 mmol/L (98-107); Creatinine, Serum 1.08 mg/dL (0.70-1.30); EST Glomerular Filtration Rate 72 mL/min (>60); Est Glom Filt Rate - Afr Amer 87 mL/min (>60); Estimated Creatinine Clearance 64.55 ml/min; Globulin 2.9 g/dL (2.2-4.2); Glucose 133 mg/dL (74-106); Potassium 3.7 mmol/L (3.5-5.1); Protein, Total 6.5 g/dL (6.4-8.2); Sodium Level 138 mmol/L (136-145)
[2023-01-25] MEDS: Morphine 4 MG/ML Syringe IV ×2 (18:24→19:59)
[2023-01-25 18:28] VITALS: BP 143/76; PULSE 87; RESP 20; O2SAT 100
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
[2023-01-25 18:45] LABS: Troponin-I HS 209 pg/mL (3.0-78.0)
[2023-01-25 19:06] VITALS: BP 125/72; PULSE 86; RESP 19; O2SAT 100
[2023-01-25 20:00] VITALS: BP 138/71; PULSE 84; RESP 20; O2SAT 100
[2023-01-25 20:04] VITALS: BP 138/71; PULSE 85; RESP 20; TEMP 36.6; O2SAT 100
== END 2023-01-25 20:06 | disposition short-term general hospital (02) ==
LOC: ED 18:35
PROVIDERS: Emergency Provider Emergency Medicine; PCP Family Medicine; Visit Provider Emergency Medicine
DX: S22.43XA Multiple fractures of ribs, bilateral, initial encounter for closed fracture (principal); E11.9 Type 2 diabetes mellitus without complications; Z87.891 Personal history of nicotine dependence; S27.2XXA Traumatic hemopneumothorax, initial encounter; E78.5 Hyperlipidemia, unspecified; I25.10 Atherosclerotic heart disease of native coronary artery without angina pectoris; V59.40XA Driver of pick-up truck or van injured in collision with unspecified motor vehicles in traffic accident, initial encounter; Y92.488 Other paved roadways as the place of occurrence of the external cause; I25.2 Old myocardial infarction; Z95.5 Presence of coronary angioplasty implant and graft; S26.91XA Contusion of heart, unspecified with or without hemopericardium, initial encounter
CPT/HCPCS: 70450; 71260; 72125; 74177; 80048; 80076; 84484; 85025; 85610; 85730; 93005; 99285; Q9967; A4216; J2405

== ENCOUNTER → 2023-02-28 | Outpatient (CLI) | payer MEDICARE, OTHER, SELFPAY ==
--- NOTE | 2023-02-28 14:22 | VDLE_ITS ---
Reason For Study: swelling Procedure LEFT This is a venous duplex using B-mode, color GSV is normal. flow and spectral Doppler. CFV is compressible, spontaneous, phasic, Exam performed in department. competent, and demonstrates normal The exam was abbreviated due to the COVID 19 augmentation. protocol. FV is compressible, spontaneous, phasic, The exam was diagnostic. competent and demonstrates normal A preliminary report was called and/or faxed augmentation. to Dr. Peng. POP V is compressible, spontaneous, phasic, competent and demonstrates normal augmentation. T/P Trunk is compressible. PTV is compressible. LT PerV is compressible. Hypoechoic area behind the knee measuring 2.57 x .51 cm. Area is nonvascular. VL/Venous Duplex US, Unilateral Interpretation Summary Deep veins of the left lower extremity are patent and compressible segmentally. There is no evidence of left lower extremity deep vein thrombosis. Valvular competence appears intac t within the proximal deep venous system on the left . The left great saphenous vein appears patent a nd compressible segmentally. A non-vascular, hypoechoic structure is noted in the left poplitea l space, measuring 2.57 cm x 0.51 cm. This probably represents a popliteal cyst. Clinical correlat ion is advised. Ordering Physician: Sheree Peng Referring Physician: Sheree Peng Performed By: Yossi Blunt, RVT
== END | disposition home or self-care (01) ==
LOC: CVS 14:18
PROVIDERS: PCP Family Medicine; Referring Provider Family Medicine; Visit Provider Family Medicine
DX: M79.89 Other specified soft tissue disorders (principal)
CPT/HCPCS: 93971

== ENCOUNTER → 2023-03-27 | Outpatient (CLI) | payer MEDICARE, OTHER, SELFPAY ==
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
[2023-03-27 13:26] LABS: AST(SGOT) 19 U/L (15-37); Alanine Aminotransfer ALT/SGPT 27 U/L (16-61); Albumin, Serum 3.5 g/dL (3.2-5.0); Alkaline Phosphatase 71 U/L (45-117); Bilirubin, Direct 0.19 mg/dL (0.00-0.30); Cholesterol 135 mg/dL (200); Globulin 3.2 g/dL (2.2-4.2); High Density Lipoprotein 60 mg/dL; Protein, Total 6.7 g/dL (6.4-8.2); Triglycerides 70 mg/dL; Very Low Density Lipoprotein 14 mg/dL (5-40)
== END | disposition home or self-care (01) ==
PROVIDERS: PCP Family Medicine; Referring Provider Physician Assistant Medical; Visit Provider Physician Assistant Medical
DX: Z95.1 Presence of aortocoronary bypass graft (principal); I25.10 Atherosclerotic heart disease of native coronary artery without angina pectoris; Z95.5 Presence of coronary angioplasty implant and graft; E78.5 Hyperlipidemia, unspecified
CPT/HCPCS: 36415; 80061; 80076

== ENCOUNTER 2023-11-08 14:34 | Emergency (ER) | payer MEDICARE, OTHER, SELFPAY ==
[2023-11-08 14:35] VITALS: BP 146/93; PULSE 64; RESP 16; TEMP 36.6; O2SAT 95
--- NOTE | 2023-11-08 15:04 | EDS_ITS ---
HPI History of Present Illness Chief Complaint: Palpitations Informant: patient Onset/Context/Timing Onset: Today Context: Gradual Onset Timing: Intermittent Quality: Clammy Location: Generalized Worsened by: Exertion Relieved by: Nothing Narrative Narrative: Patient presents with palpitations that began today. Patient states he noticed them when he woke up this morning. Patient states he has felt clammy. Patient states he checked his temperature at home and it was 99. Patient states he did have some sweats with this. Patient states it feels like his heart is skipping beats. Patient states he does get short of breath with exertion. Patient admits to some nausea but denies any vomiting. Patient denies any neck or back pain. 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 Ischemic cardiomyopathy Long-term use of high-risk medication Type 2 diabetes mellitus Hyperlipidemia Carotid bruit Home Medications ?Medication ?Instructions ?Recorded ?Last Taken ?Type aspirin 81 mg tablet,delayed 81 mg PO [facility] [place] 09/06/17 01/29/19 History release sertraline 50 mg tablet 50 mg PO DAILY #30 tabs 10/25/23 Unknown Rx omega-3 fatty acids-fish oil 360 1 cap PO DAILY 11/08/23 Unknown History mg-1,200 mg capsule (Fish Oil) turmeric 400 mg capsule 400 mg PO .QD 11/08/23 Unknown History Allergy/AdvReac Type Severity Reaction Status Date / Time Penicillins Allergy Severe Nausea Verified 11/08/23 14:37 Family History Mother CAD (coronary artery disease) Hypertension Sister Hypertension Breast cancer Father Cancer Brother Cancer leukemia/lymphoma Surgical History Hx of colonoscopy History of left heart catheterization (LHC) (~01/29/19) Presence of stent in coronary artery (~01/17/08) Aortocoronary bypass status (~02/02/09) Postsurgical percutaneous transluminal coronary angioplasty (PTCA) status Social History household members: spouse current occupational status: retired Smoking Status: Former smoker alcohol intake: never substance use type: does not use what type of physical activity do you participate in: bicycling ROS ROS ED Constitutional Constitutional ED: Reports fever(s) and sweats; Denies chills Eyes Eyes: Denies blurry vision or change in vision ENT ENT ED: Denies rhinorrhea or sore throat Cardiovascular Cardiovascular: Reports chest pain and palpitations Respiratory/Chest Respiratory/Chest: Reports dyspnea and dyspnea on exertion; Denies cough Gastrointestinal Gastrointestinal: Reports nausea; Denies vomiting Genitourinary Genitourinary ED: Denies dysuria or hematuria Musculoskeletal Musculoskeletal: Denies back pain or neck pain Integumentary Denies abscess or rash Neurologic Neurologic: Denies headache(s) or weakness Allergic/Immunologic Allergic/Immunologic ED: Denies mouth swelling or urticaria EXAM Physical Exam Const Vital Signs: 11/08/23 14:35 11/08/23 15:29 11/08/23 15:32 Temperature 98 F Temperature Source Temporal Pulse Rate 64 Respiratory Rate 16 Respiratory Effort Normal Non-Labored Blood Pressure 146/93 H Blood Pressure Mean 110 Pulse Ox 95 Oxygen Delivery Method Room Air Room Air 11/08/23 15:34 11/08/23 17:00 11/08/23 18:00 Temperature Temperature Source Pulse Rate 47 L 49 L 51 L Respiratory Rate 15 16 16 Respiratory Effort Blood Pressure 159/80 H 164/71 H 162/79 H Blood Pressure Mean 106 102 106 Pulse Ox 97 97 96 Oxygen Delivery Method Room Air Room Air Room Air Positive well nourished and well developed General Appearance ED: well developed and NAD HEENT Reports moist mucous membranes Neck supple and no JVD Chest Wall palpation of chest normal Resp normal respiratory effort and clear to auscultation bilaterally Cardio regular rhythm Rate: bradycardia GI non-tender and non-distended Palpation: soft Neuro oriented x3, CN's II-XII intact bilaterally and no sensory deficits noted Sensorium / Orientation: alert Motor Exam: strength 5/5 throughout Psych mental status grossly normal MDM MDM MDM Narrative Medical decision making narrative: Differential diagnosis includes cardiac dysrhythmia, cardiac ischemia, pneumonia, pneumothorax, pulmonary embolism, electrolyte abnormality, and anxiety. EKG will be obtained to assess for cardiac dysrhythmia and cardiac ischemia. Chest x-ray will be obtained to assess for pneumonia and p neumothorax. CBC will be obtained to assess for leukocytosis and anemia. Basic metabolic profile will be obtained to assess for electrolyte abnormality and renal function. High-sensitivity troponin will be obtained to assess for cardiac ischemia. D-dimer will be obtained to assess for pulmonary embolism. 2-hour repeat high-sensitivity troponin will be obtained to assess for ongoing cardiac ischemia. Lab Data Attestation: I reviewed the patient's lab results. Lab results narrative: CBC was reviewed and was within normal limits. Basic metabolic profile was reviewed and was essentially within normal limits. Initial high-sensitivity troponin was reviewed and was normal at 9. D-dimer was reviewed and was slightly elevated at 0.80. 2-hour repeat high-sensitivity troponin was reviewed and was normal at 7. Labs: Laboratory Results - last 24 hr 11/08/23 11/08/23 14:55 17:15 WBC 7.3 RBC 5.61 Hgb 15.5 Hct 48.6 MCV 86.6 MCH 27.6 MCHC 31.9 L RDW Std Deviation 44.1 H RDW Coeff of Kaley 13.9 Plt Count 261 MPV 10.0 Immature Gran % (Auto) 0.300 Neut % (Auto) 75.1 H Lymph % (Auto) 13.5 L [place] % (Auto) 9.8 Eos % (Auto) 1.0 Baso % (Auto) 0.3 Absolute Neuts (auto) 5.5 Absolute Lymphs (auto) 0.99 Nucleated RBC % 0 D-Dimer Quant (PE/DVT) 0.80 H* Sodium 139 Potassium 4.2 Chloride 106 Carbon Dioxide 28.0 Anion Gap 5 BUN 22 H Creatinine 0.98 Estim Creat Clear Calc 78.69 Est GFR (MDRD) Af Amer 97 Est GFR (MDRD) Non-Af 80 BUN/Creatinine Ratio 22.4 H Glucose 91 Calcium 9.2 Troponin I High Sens 9 7 Radiography Diagnostic Testing: Clinical Impression(s) from Imaging Studies Chest X-Ray 11/08/23 15:40 IMPRESSION: Healing left upper rib fractures. There is blunting left costophrenic angle which may represent pleural scar. There is no acute pulmonary abnormality. Electronically Signed: Alejandro Mercer MD at 16:39 EDT , Chest CTA 11/08/23 16:10 IMPRESSION: Negative CTA chest. Electronically Signed: Alejandro Mercer MD at 17:47 EDT , Portable 1 view chest x-ray was obtained. On my independent interpretation, lung buckley show blunting of the costophrenic angle on the left. There is normal cardiac silhouette. Bony thorax shows healing left upper rib fractures. There is no acute process noted. Radiologist also interpreted the x-ray and agrees. Because of the elevated D-dimer, CTA of the chest was obtained. There is no evidence of pulmonary embolism or aortic dissection. This was interpreted by the radiologist and was also independently reviewed by myself. EKG Initial EKG: Attestation: I personally reviewed and interpreted this EKG as follows: Interpretation: Sinus Bradycardia (59 with occasional PVCs) and Non- Specific ST Changes Comments: EKG was obtained. On my independent interpretation, shows sinus bradycardia with occasional PVCs with a rate of 59. ME interval was normal at 176 ms. QRS interval was normal at 118 ms. QTc interval was normal at 433 ms. Chana was normal at -8. There are nonspecific ST-T wave changes noted. Prior EKG tracings: available for review Prior: Unchanged (01/25/2023) Treatment and Re-Evaluation :: Patient was given aspirin here. Patient had no further symptoms here in the emergency department. Patient was advised of his findings. Patient was instructed to follow-up with his primary care physician in 5 to 7 days. Patient was instructed to return if worse in any way. Patient understood and was agreeable with the plan. All questions were answered. Discharge Plan Triage Chief Complaint: Palpitations ED Provider: Sage Joyce Dx/Rx/DC Orders Clinical Impression: Palpitations, Essential hypertension, Type 2 diabetes mellitus Instructions: ED Palpitations Prescriptions: No Action aspirin 81 mg tablet,delayed release (DR/EC) 81 mg PO QHS turmeric 400 mg capsule 400 mg PO .QD omega-3 fatty acids-fish oil [Fish Oil] 360-1,200 mg capsule 1 cap PO DAILY sertraline 50 mg tablet 50 mg PO DAILY Qty: 30 1RF Primary Care Provider: Sheree Peng Referrals: Sheree Peng MD [Primary Care Provider] - 3-5 Days Print Language: Icelandic Disposition Disposition: Home, Self Care
--- NOTE | 2023-11-08 15:23 | EKG12_ITS ---
Test Reason : PALP Blood Pressure : / mmHG Vent. Rate : 059 BPM Atrial Rate : 059 BPM P-R Int : 176 ms QRS Dur : 118 ms QT Int : 438 ms P-R-T Axes : 027 -08 -08 degrees QTc Int : 433 ms Sinus bradycardia with occasional Premature ventricular complexes Inferior infarct , age undetermined Anterior infarct , age undetermined Abnormal ECG Confirmed by Clint Echols ([id number]), fashion editor RIVERA HU ([id number]) on 11/09/2023 2:08:29 PM Referred By: TASHA/RADHA Confirmed By:Clint Echols
[2023-11-08] MEDS: Aspirin 81 MG TAB.CHEW 324 MG PO (15:28)
[2023-11-08 15:34] VITALS: BP 159/80; PULSE 47; RESP 15; O2SAT 97
--- NOTE | 2023-11-08 15:40 | RAD_ITS ---
EXAM: XR CHEST, 1 VIEW CLINICAL INDICATION: chest pain TECHNIQUE: Frontal view of the chest. COMPARISON: 01/25/2019 FINDINGS: LUNGS AND PLEURAL SPACES: There is minimal blunting left costophrenic angle which is stable and may represent pleural scarring. No pneumothorax. No effusion. HEART: Unremarkable. Cardiac silhouette not enlarged. MEDIASTINUM: Central airways and mediastinal contour are unremarkable. BONES/JOINTS: There are median sternotomy wires in place. The top 2 sternotomy wires are fractured. There are healing fractures of left fourth through sixth ribs. SOFT TISSUES: Unremarkable. RAD/Chest 1 View (Portable) IMPRESSION: Healing left upper rib fractures. There is blunting left costophrenic angle which may represent pleural scar. There is no acute pulmonary abnormality. Electronically Signed: Alejandro Mercer MD at 16:39 EDT ,
[2023-11-08 15:56] LABS: Absolute Lymphocyte Count 0.99 X10^3/uL (0.83-4.51); Absolute Neutrophil Count 5.5 X10^3/uL (2.0-7.7); Basophil# 0.02 X10^3/uL; Basophil% 0.3 % (0-1); Eosinophil# 0.07 X10^3/uL; Hematocrit 48.6 % (40-54); Hemoglobin 15.5 g/dL (13.0-16.5); Lymphocyte # 0.99 X10^3/ul (0.83-4.51); Lymphocyte % 13.5 % (19-41); Mean Corp Hgb Conc 31.9 g/dL (32-36); Mean Corpuscular Hgb 27.6 pg (27.0-32.0); Mean Corpuscular Volume 86.6 fL (80-94); Monocyte# 0.72 X10^3/uL; Monocyte% 9.8 % (0-10); NRBC Flagged by Analyzer 0 % (0-5); Neutrophil # 5.51 X10^3/uL (2.7-7.7); Neutrophil % 75.1 % (47-70); Platelet Count 261 K/mm3 (150-450); RBC Distribution Width CV 13.9 % (11.6-14.6); RBC Distribution Width SD 44.1 fl (35.1-43.9); Red Blood Count 5.61 M/mm3 (4.6-6.2); White Blood Count 7.3 K/mm3 (4.4-11.0)
--- NOTE | 2023-11-08 16:10 | CT_ITS ---
EXAM: CT ANGIOGRAPHY CHEST WITHOUT AND WITH INTRAVENOUS CONTRAST CLINICAL INDICATION: Elevated D-dimer TECHNIQUE: Helically acquired angiography images were obtained of the chest without and with intravenous contrast. This CT exam was performed using one or more of the following dose reduction techniques: automated exposure control, adjustment of the mA and/or kV according to patient size, and/or use of iterative reconstruction technique. MIP reconstructed images were created and reviewed. CONTRAST: IV 100mL [id number] COMPARISON: No relevant prior studies available. FINDINGS: PULMONARY ARTERIES: Unremarkable. Normal in caliber. No evidence of pulmonary embolism. AORTA: Unremarkable. Normal in caliber. No evidence of dissection. GREAT VESSELS OF AORTIC ARCH: Unremarkable. Normal in caliber. No evidence of dissection. LUNGS AND PLEURAL SPACES: Unremarkable. No mass. No consolidation or edema. No pleural effusion or thickening. No pneumothorax. HEART: Unremarkable. Heart size is normal. No pericardial effusion. No significant coronary artery calcifications. MEDIASTINUM: Unremarkable. No mediastinal or hilar adenopathy. Esophagus is unremarkable. No hiatal hernia. THYROID: Unremarkable. No thyroid lesions. BONES/JOINTS: Unremarkable. No suspicious lytic or blastic abnormality. CT/CTA Chest W/WO Contrast IMPRESSION: Negative CTA chest. Electronically Signed: Alejandro Mercer MD at 17:47 EDT ,
[2023-11-08 16:25] LABS: Anion Gap 5 (5-15); BUN 22 mg/dL (7-18); BUN/Creat Ratio 22.4 RATIO (10-20); Calcium,Total 9.2 mg/dL (8.5-10.1); Chloride 106 mmol/L (98-107); Creatinine, Serum 0.98 mg/dL (0.70-1.30); EST Glomerular Filtration Rate 80 mL/min (>60); Est Glom Filt Rate - Afr Amer 97 mL/min (>60); Estimated Creatinine Clearance 78.69 ml/min; Glucose 91 mg/dL (74-106); Potassium 4.2 mmol/L (3.5-5.1); Sodium Level 139 mmol/L (136-145); Troponin-I HS (w/2H Reflex) 9 pg/mL (3.0-78.0)
[2023-11-08 17:00] VITALS: BP 164/71; PULSE 49; RESP 16; O2SAT 97
[2023-11-08 17:48] LABS: Reflex Troponin-HS? (from REC) Y
[2023-11-08 18:00] VITALS: BP 162/79; PULSE 51; RESP 16; O2SAT 96
[2023-11-08 18:25] LABS: Troponin-I HS 7 pg/mL (3.0-78.0)
[2023-11-08 18:59] VITALS: BP 178/79; PULSE 48; RESP 16; TEMP 36.9; O2SAT 97
== END 2023-11-08 19:03 | disposition home or self-care (01) ==
PROVIDERS: Emergency Provider Emergency Medicine; PCP Family Medicine; Visit Provider Emergency Medicine
DX: R00.2 Palpitations (principal); I48.91 Unspecified atrial fibrillation; E11.9 Type 2 diabetes mellitus without complications; I25.10 Atherosclerotic heart disease of native coronary artery without angina pectoris; E78.5 Hyperlipidemia, unspecified; I10 Essential (primary) hypertension; Z87.891 Personal history of nicotine dependence; Z95.5 Presence of coronary angioplasty implant and graft
CPT/HCPCS: 71045; 71275; 80048; 84484; 85025; 85379; 93005; 99283; Q9967; A4216

== ENCOUNTER → 2023-12-20 | Outpatient (CLI) | payer OTHER, MEDICARE, SELFPAY ==
--- NOTE | 2023-12-20 07:26 | ECHOCS_ITS ---
Version 2 Reason For Study: Dyspnea/SOB Procedure This was a 2D Doppler, Color Flow transthoracic echocardiogram. Contrast injection was performed. Exam performed in department. Left Ventricle Normal LV size. Moderate concentric left ventricular hypertrophy. Left ventricular systolic function is normal. The left ventricular ejection fraction is 55 %. Stage 1 diastolic dysfunction. No regional wall motion abnormalities noted. Right Ventricle Normal RV size. Normal systolic function. Atria The left atrium is mildly enlarged. Normal right atrium. Mitral Valve Normal mitral valve. Mild (1+) eccentric mitral valve insufficiency. Tricuspid Valve Normal tricuspid valve. Mild (1+) tricuspid valve insufficiency. Pulmonary artery systolic pressure is 33 mmHg. Aortic Valve Trisinus/trileaflet aortic valve. Pulmonic Valve Normal pulmonic valve. Trivial pulmonic valve insufficiency. Great Vessels Normal aortic root. The pulmonary artery is normal size. Inferior vena cava collapse with respiration. Pericardium/Pleural Trivial pericardial effusion. There are no echocardiographic indications of cardiac tamponade. Medication 22 gauge I.V. with prn adaptor inserted into left arm. Diluted definity 2ml given slow IV push to enhance endocardial definition. MMode/2D Measurements & Calculations LVIDd: 5.2 cm IVSd: 1.4 cm Ao root diam: 4.0 cm LVIDs: 4.1 cm LVPWd: 1.6 cm RVDd: 4.5 cm FS: 19.8 % LAV(MOD-bp): 87.9 ml Ao sinus diam: 4.[address] Junction: 3.2 cm LAV(MOD-bp) Indexed: 42.2 ml/m2 LAV(MOD-sp2): 83.0 ml LAV(MOD-sp4): 87.9 ml LA dimension(2D): 4.9 cm LA A4 area: 24.9 cm2 RA A4 area: 18.3 cm2 TAPSE: 2.2 cm Time Measurements MV dec time: 0.27 sec Doppler Measurements & Calculations MV E max shakeel: 63.3 cm/sec Lat Peak E' Shakeel: 12.1 cm/sec Med Peak E' Shakeel: 6.0 cm/sec MV A max shakeel: 76.3 cm/sec E/E' lat: 5.2 E/E' med: 10.5 MV E/A: 0.83 MV V2 max: 83.4 cm/sec MV P1/2t max shakeel: 83.4 cm/sec Ao V2 max: 116.6 cm/sec MV max P.8 mmHg MV P1/2t: 111.3 msec Ao max P.4 mmHg MV V2 mean: 45.5 cm/sec MV dec slope: 219.4 cm/sec2 Ao V2 mean: 78.7 cm/sec MV mean P.99 mmHg Ao mean P.9 mmHg MV V2 VTI: 32.2 cm MVA(P1/2t): 2.0 cm2 Ao V2 VTI: 30.5 cm AV (velocity ratio): 0.77 LV V1 max: 91.1 cm/sec MR max shakeel: 583.7 cm/sec PA V2 max: 103.3 cm/sec LV V1 max P.3 mmHg MR max P.3 mmHg PA max PG (full): 2.6 mmHg LV V1 mean P.8 mmHg LV V1 mean: 62.1 cm/sec LV V1 VTI: 23.4 cm TR max shakeel: 275.4 cm/sec TR max P.3 mmHg ECHO/Echo Complete W/ Contrast Interpretation Summary Normal LV size. Left ventricular systolic function is normal. The left ventricular ejection fraction is 55 %. Moderate concentric left ventricular hypertrophy. Stage 1 diastolic dysfunction. The left atrium is mildly enlarged. Contrast injection was performed. Ordering Physician: Malaika Pollard Referring Physician: Malaika Pollard Performed By: Blu Wesley RCS
--- NOTE | 2023-12-21 08:55 | STRESSREP ---
Stress Test Report Pharmacologic myocardial perfusion stress test. 68-year-old man with a history of dyspnea coronary artery disease Resting EKG demonstrates sinus bradycardia with a rate of 52 bpm. Resting blood pressure is 124/82 mmHg. 0.4 mg of regadenoson was infused per usual protocol followed by rapid intravenous saline flush injection. Continuous EKG monitoring was performed. The maximum heart rate was 68 bpm which was 45% of max impacted heart rate the maximum workload was 1 metabolic equivalent. At rest there were no ST or T wave changes noted to suggest ischemia and at peak infusion nonspecific ST changes were noted which did not meet the criteria for ischemia. No clinical angina is noted. The final blood pressure was 112/60 mmHg. Myocardial perfusion protocol. 13.9 mCi of technetium 99m sestamibi was injected at rest. 0.4 mg of regadenoson was infused per usual protocol. At peak infusion 40.3 mCi of technetium 99m sestamibi was injected stress images were obtained stress and rest images were reconstructed and compared in the short axis vertical long and horizontal long axis. Gated images were also obtained. Perfusion SPECT analysis: Review of the stress images demonstrate normal uptake of tracer noted in all areas of the myocardium except for the inferior wall with a medium to large sized perfusion defect. The resting images similar demonstrated normal uptake of tracer noted in all areas of the myocardium except for the inferior wall with a medium to large size defect the above is suggestive of previous extensive inferior infarct. No ischemia is noted. Gated SPECT analysis: The gated ejection fraction is 50%. Conclusion: Normal pharmacologic myocardial perfusion stress test. Preserved ejection fraction. Previous inferior infarct no ischemia.
== END | disposition home or self-care (01) ==
LOC: CVS 07:26
PROVIDERS: PCP Family Medicine; Referring Provider Physician Assistant Medical; Visit Provider Physician Assistant Medical
DX: R06.09 Other forms of dyspnea (principal)
CPT/HCPCS: 78452; 93017; 93306; A9500; Q9957; A4216; C8929; J2785

== ENCOUNTER → 2024-01-31 | Outpatient (CLI) | payer MEDICARE, OTHER, SELFPAY ==
--- NOTE | 2024-01-31 12:13 | CT_ITS ---
CT RIGHT LOWER EXTREMITY WITH 3-D IMAGING CLINICAL INDICATION: Templating for right TKA. TECHNIQUE: Axial CT images of the right lower extremity (including right hip, right knee, and right ankle) was performed without IV contrast material. Coronal and sagittal reformats were provided. The protocol utilizes one or more of the following dose reduction techniques: automated exposure control, adjustment of mA and/or kV according to patient size, and/or use of iterative reconstruction technique. RADIATION DOSAGE (If Supplied By Facility): CTDIvol = ( 18.76 ) mGy, DLP = ( 1180.56 ) mGycm COMPARISON: Right knee radiographs dated 12/22/2023. FINDINGS: Bones: Normal right hip joint. There is mild pubic symphysis arthrosis. There is severe degenerative arthrosis of the medial femorotibial compartment of the right knee, with severe joint space narrowing, mild marginal osteophyte formation, subchondral sclerosis, and small foci of subchondral cyst formation. There is mild degenerative arthrosis of the patellofemoral and lateral femorotibial compartments of the right knee.. There is minimal tibiotalar arthrosis of the right ankle. Osseous structures are intact without evidence of fracture or dislocation. No lytic or blastic osseous masses. Soft Tissues: There is a moderate right knee joint effusion. There is a multiseptated popliteal cyst, spanning a craniocaudal distance of approximately 6.3 cm. There is mild subcutaneous soft tissue edema along the anterior aspect of the knee. The deep soft tissue structures are otherwise unremarkable. CT/Extremity Lower without Contra IMPRESSION: Tricompartment degenerative arthrosis of the right knee, most severe in the medial femorotibial compartment. Moderate right knee joint effusion. 6.3 cm multiseptated popliteal cyst. Electronically Signed: Kevin Pineda MD at 8:41 EST ,
[2024-01-31 12:18] LABS: Absolute Neutrophil Count 5.5 X10^3/uL (2.0-7.7); Basophil# 0.03 X10^3/uL; Basophil% 0.4 % (0-1); Eosinophil# 0.06 X10^3/uL; Eosinophils% 0.8 % (0-5); Hematocrit 51.2 % (40-54); Lymphocyte % 11.2 % (19-41); Mean Corp Hgb Conc 33.2 g/dL (32-36); Mean Corpuscular Hgb 28.9 pg (27.0-32.0); Mean Corpuscular Volume 87.1 fL (80-94); Mean Platelet Vol. 9.8 fl (6.2-12.0); Monocyte# 0.76 X10^3/uL; Monocyte% 10.6 % (0-10); NRBC Flagged by Analyzer 0 % (0-5); Neutrophil # 5.47 X10^3/uL (2.7-7.7); Neutrophil % 76.3 % (47-70); Platelet Count 281 K/mm3 (150-450); RBC Distribution Width CV 13.1 % (11.6-14.6); Red Blood Count 5.88 M/mm3 (4.6-6.2); White Blood Count 7.2 K/mm3 (4.4-11.0)
[2024-01-31 12:27] LABS: International Normalized Ratio 1.1
[2024-01-31 12:28] LABS: Partial Thromboplast Time 26.7 Seconds (24.1-36.2)
[2024-01-31 12:51] LABS: Magnesium 2.3 mg/dL (1.6-2.6)
[2024-01-31 12:55] LABS: Anion Gap 5 (5-15); BUN 21 mg/dL (7-18); BUN/Creat Ratio 18.8 RATIO (10-20); Calcium,Total 9.4 mg/dL (8.5-10.1); Chloride 104 mmol/L (98-107); Creatinine, Serum 1.12 mg/dL (0.70-1.30); EST Glomerular Filtration Rate 69 mL/min (>60); Est Glom Filt Rate - Afr Amer 83 mL/min (>60); Glucose 102 mg/dL (74-106); Potassium 4.5 mmol/L (3.5-5.1); Sodium Level 137 mmol/L (136-145)
[2024-01-31 13:03] LABS: Hemoglobin A1c 5.8 % (3.8-5.6)
[2024-02-01 05:08] LABS: Fructosamine 249 umol/L (0-285)
== END | disposition home or self-care (01) ==
PROVIDERS: Anesthesiology; PCP Family Medicine; Referring Provider Orthopaedic Surgery; Visit Provider Orthopaedic Surgery
DX: Z01.818 Encounter for other preprocedural examination (principal); M17.11 Unilateral primary osteoarthritis, right knee
CPT/HCPCS: 36415; 73700; 80048; 82985; 83036; 83735; 85025; 85610; 85730; 86850; 86900; 86901; 87081

== ENCOUNTER 2024-02-13 10:58 | Inpatient (IN) | payer MEDICARE, OTHER, SELFPAY ==
[2024-02-13] VITALS (14 sets, daily range): BP systolic 102–144; BP diastolic 56–79; PULSE 45–85; RESP 15–20; TEMP 36.3–37.3; O2SAT 94–100; BMI 30.2
--- NOTE | 2024-02-13 | KNEE_PTH ---
PATIENT: ELENITA PORTILLO LOC: MS3 U#:[id number] AGE/SX: 68/M ROOM: [facility] [place] RE02/13/[address]: Dr. Blair Landers DO : 1955 BED: 1 DIS: 02/15/2024 SPEC #: [id number] RECD: 02/13/24 12:42 STATUS: PRIMO REQ #: [id number] SIS: 02/13/24 00:[address]: Blair Landers DEPT: SURGICAL PATHOLOGY RECD BY: Aidan Rush ENTERED: 02/13/24 12:42 SP TYPE: TOTAL KNEE OTHR DR: Dr. Sheree Peng MD Tissues: Knee, NOS Procedures: Decalcification bone/plaque Surgery Specimen Level IV HEADER OPERATION: Right total knee replacement robotic arm assist PRE-OP DIAGNOSIS: Osteoarthriits right knee TISSUE SUBMITTED: Bone and soft tissue right knee MICROSCOPIC DIAGNOSIS Bone and tissue of right knee, total knee resection: Severe degenerative joint disease. Mild synovial hyperplasia. AM: 02/16/2024 MICROSCOPIC DESCRIPTION Slides are reviewed. GROSS DESCRIPTION Received is one container designated bone and soft tissue right knee. The specimen consists of multiple fragments of torres-yellow bone measuring in aggregate 15.0 x 9.0 x 2.0 cm. Also in the specimen container are multiple fragments of yellow-white soft tissue measuring in aggregate 2.0 x 2.0 x 0.5 cm. A number of bony fragments contain articular surfaces consistent with tibial plateau and femoral condyle and displaying prominent osteophyte formation, eburnation and bone erosion. Package Delivery Driver sections are submitted in two cassettes as follows: 1 - soft tissue, 2 - bone after decalcification. / AM. 02/13/2024 TC:5 [facility]: [id number], [id number]
--- NOTE | 2024-02-13 06:38 | EKG12_ITS ---
Test Reason : P Blood Pressure : */* mmHG Vent. Rate : 68 BPM Atrial Rate : 68 BPM P-R Int : 198 ms QRS Dur : 128 ms QT Int : 406 ms P-R-T Axes : 43 -2 -8 degrees QTcB Int : 431 ms Sinus rhythm with frequent Premature ventricular complexes Non-specific intra-ventricular conduction block Inferior infarct (cited on or before 28-Feb-2009) Cannot rule out Anterior infarct (cited on or before 10-Jun-2018) Abnormal ECG When compared with ECG of 08-Nov-2023 14:40, No significant change was found Confirmed by Clitn Echols ([id number]), book or script editor ZULY WILLOUGHBY ([id number]) on 02/13/2024 1:52:07 PM Also confirmed by Clint Echols ([id number]), book or script editor ZULY WILLOUGHBY ([id number]) on 02/13/2024 1:53:25 PM Referred By: Blair Landers Confirmed By: Clint Echols
[2024-02-13] MEDS: Magnesium 1 GM over 15 mins IV (07:09)
[2024-02-13] MEDS: Celecoxib 200 MG Capsule 400 MG PO (07:10)
[2024-02-13] MEDS: Acetaminophen 500 MG Tablet 1000 MG PO ×2 (07:10→21:56)
[2024-02-13] MEDS: Gabapentin 600 MG Tablet PO (07:10)
[2024-02-13] MEDS: Lactated Ringers 1,000 ML 15 ML IV (07:11)
[2024-02-13] MEDS: Scopolamine 1mg/72hr Patch 1 PATCH TD (07:11)
--- NOTE | 2024-02-13 07:21 | HP.PCM_ITS ---
History and Physical Date of Admission: 02/13/24 [facility] [address] [place] [address] OFFICE VISIT Date of Service: 12/22/23 MR#: [id number] Acct: [id number] Name: ELENITA PORTILLO Rep #: [id number] : 1955 Provider: Dr. Blair Landers DO Age/Sex: 68/M Location: [facility] Status: Signed Intake Vital Signs 11/29/2412:29 12/21/2408:37 Height 5 ft 9 in 5 ft 9 in Weight: 219 lb 3 oz BMI 32.3 Intake Visit Reasons: right knee Allergies Penicillins Allergy (Severe, Verified 12/22/23 09:37) Nausea Medications ?Medication ?Instructions ?Recorded ?Confirmed ?Type aspirin 81 mg tablet,delayed 81 mg PO QHS heart health 09/06/17 12/22/23 History release sertraline 50 mg tablet 25 mg PO QHS 11/30/23 12/22/23 History [facility] you [facility] in the past year?: [facility] History Wears glasses Cancer Walker as ambulation aid BPH (benign prostatic hyperplasia) Arthritis Prostate disease High cholesterol Gastric reflux CPAP (continuous positive airway pressure) dependence Former smoker History of echocardiogram History of stress test Cardiology follow-up encounter History of atrial fibrillation [place] GERD (gastroesophageal reflux disease) Sleep apnea History of back problems Postoperative atrial fibrillation History of myocardial infarction Atherosclerotic heart disease of [place] coronary artery without angina pectoris Ischemic cardiomyopathy Long-term use of high-risk medication Type 2 diabetes mellitus Hyperlipidemia Carotid bruit Surgical History History of cardiac catheterization S/P CABG x 5 Hx of colonoscopy History of left heart catheterization (LHC) (~01/29/19) Presence of stent in coronary artery (~01/17/08) Aortocoronary bypass status (~02/02/09) Postsurgical percutaneous transluminal coronary angioplasty (PTCA) status Family History Mother CAD (coronary artery disease) HypertensionSister Hypertension Breast cancerFather CancerBrother Cancer leukemia/lymphoma Social History household members: spouse current occupational status: retired Smoking Status: Former smoker alcohol intake: never substance use type: does not use what type of physical activity do you participate in: bicycling HPI right knee Details: This documentation accurately reflects the service provided and the decisions made by me, Dr. Blair Landers, DO 12/22/23 0846. Part of today?s visit was documented by Dottie GONZALEZ, acting as scribe. ELENITA PORTILLO is a 68 year old pleasant male seen with his today for right knee pain. He states that he has had trouble with the knee since he was 18 but it typically goes away. He has seen Jovi Younger and Dr. Dickson for the knee. Dr. Dickson did do an injection on 08/28/23 but the patient states that it didn't give him any relief. His pain is over his medial compartment. He likes to be very active however he is now on a walker because of the knee and it is significantly affecting his quality of life .he denies previous surgery. He states that when he was 18 he got twisted around by a cow and that when the pain started. He does ambulate with a walker to help take the pressure off his knee. He does have popping and clicking . He states the pain has gotten worse over the last year. He does have some instability . He would like to discuss knee replacement. He occasionally take Ibuprofen for the pain. He does use biofreeze prescription strength which he states is the best thing he uses. Ortho Exam General General: Yes no acute distress Neurologic: Yes alert and Yes oriented x3 Psychologic: Yes reasonable and appropriate Right Knee Skin/Wound: No erythema, No ecchymosis and Yes swelling Homans Sign: No Knee ROM: Yes ROM-Extension -20 to 0 and Yes ROM-Flexion 0-140 Examination: No Med jt line tenderness and No Lat jt line tenderness Stability: NML: Anterior Drawer, NML: Posterior Drawer, NML: Varus 0 and NML: Varus 30 and 2+: Valgus 0 (Secondary to medial joint space narrowing) and 2+: Valgus 30 Patella Translation: 1 Patella Grind: No KNEE: varus deformity grade 2 joint effusion 6mm gapping with valgus stress Left Knee Patella Translation: 1 Head: Normocephalic Atraumatic Chest: symmetrical rise, non-labored breathing, no audible wheeze Abdomen: no guarding, non-rigid Supplemental Info 12/22/23 right knee x-ray: advanced medial compartment osteoarthritis, bipartite patella superolateral. Coding Level of Care Code Off vis,est,level 4 Diagnoses KERLINE (obstructive sleep apnea) G47.33 Essential hypertension I10 Postoperative atrial fibrillation I97.89; I48.91 History of myocardial infarction I25.2 Ischemic cardiomyopathy I25.5 Type 2 diabetes mellitus E11.9 Aortocoronary bypass status Z95.1 Osteoarthritis of right knee M17.11 Assessment and Plan Assessment and Plan (1) KERLINE (obstructive sleep apnea): Status: Chronic (2) Essential hypertension: Status: Acute (3) Postoperative atrial fibrillation: Status: Acute (4) History of myocardial infarction: Status: Acute (5) Ischemic cardiomyopathy: Status: Chronic (6) Type 2 diabetes mellitus: Status: Chronic (7) Aortocoronary bypass status: Status: Chronic Comment: CABG x5- MUELLER to LAD, SVG to the continuation branch of the RCA, SVG to the PDA, SVG to the ramus of CX, and SVG to the 1st diagonal of the anteiordescending 02/02/09 (8) Osteoarthritis of right knee: Status: Acute Orders: Orders Knee 4 or More Views Today M17.11 - Unilateral primary osteoarthritis, right knee Plan Educated patient on anatomy and etiology of the knee. Discussed with patient that the xrays do show advanced arthritis of medial compartment. Discussed with patient that his treatment options are do nothing, medial medical esthetician brace, viscosupplementation injections, steroid injections, physical therapy, anti- inflammatories or a TKA. Risks, benefits and alternatives of surgery reviewed including but not limited to bleeding, infection, nerve, artery and/or tissue damage, fracture, VTE, mechanical feel of the knee, continued pain, stiffness and expected post-operative course.?Advised patient that after surgery his main job is to work on his ROM to avoid stiffness. Advised patient that if he were to do some pre-hab or exercises it can benefit him post-op. Patient does have some dental work that we need to have looked at before surgery Needs medical and cardiac clearance needs dental clearance Discussed Iovera treatment with his patient he would like to have this if it is covered by insurance. Due to his medical comorbidities and age would recommend admission Tentative surgery date February 13, 2024 Clinical Quality Measures Falls Risk Screening/Assistive Devices Have you fallen in the past year?: Yes 12/22/23 1048 <Electronically signed by Blair Landers DO> Date Blair Landers DO Cosigner Signature: Date (if applicable) CC: ~ I have examined the patient and the H&P has been reviewed. There are no clinical changes since date of exam.
--- NOTE | 2024-02-13 07:35 | PCM.PRE.AN2 ---
ASA Classification* ASA Classification ASA Classification: 3 Assessment & Plan Anesthesia* Anesthesia Assessment Anesthesia Assessment: Discussed sedation and/or anesthesia options, risks, benefits, and alternatives with patient/parents/legal guardian/POA. Questions invited. The patient/parents/legal guardian/POA seems to understand and agrees to proceed with anesthesia plan. Reviewed the physical assessment, medical history, allergy history and patient home medications list prior to surgery/procedure/anesthetic and documented any changes. Performed airway and anesthesia risk assessments. Anesthesia Type Anesthesia Type: Spinal History Source History Obtained from:: Patient and Chart Anesthesia Focused Assessment* Temperature: 99.1 F Pulse Rate: 45 Blood Pressure: 134/75 Respiratory Rate: 16 Pulse Ox: 100 Oxygen Delivery Method: Room Air Airway Assessment Mouth opens: >3 cm Mallampati Score: I Teeth Condition: Missing (Few teeth missing. Rest of them are tight) Neck Range of motion (ROM): Limited ROM Pertinent Findings EKG Pertinent Findings:: February 13, 2024. Sinus rhythm with frequent premature ventricular complexes. Nonspecific intraventricular block. Inferior infarct anterior infarct are both old. Focused Labs Anesthesia Preop lab: CBC WBC 7.2 K/mm3 (4.4-11.0) 01/31/24 12:00 RBC 5.88 M/mm3 (4.6-6.2) 01/31/24 12:00 Hgb 17.0 g/dL (13.0-16.5) H 01/31/24 12:00 Hct 51.2 % (40-54) 01/31/24 12:00 Plt Count 281 K/mm3 (150-450) 01/31/24 12:00 CHEMISTRY Potassium 4.5 mmol/L (3.5-5.1) 01/31/24 12:00 Sodium 137 mmol/L (136-145) 01/31/24 12:00 Magnesium 2.3 mg/dL (1.6-2.6) 01/31/24 12:00 BUN 21 mg/dL (7-18) H 01/31/24 12:00 Creatinine 1.12 mg/dL (0.70-1.30) 01/31/24 12:00 Glucose 102 mg/dL (74-106) 01/31/24 12:00 POC Glucose 100 mg/dL (70-110) 06/11/18 17:52 TSH 2.30 uIU/mL (0.358-3.74) 11/28/22 09:15 COAG PT 14.0 SECONDS (11.7-14.9) 01/31/24 12:00 Pre-Assessment Diagnosis/Proposed Procedure Planned Operative Procedure(s): RIGHT TOTAL KNEE ARTHROPLASTY Anesthesia History 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 When Was Last Pacemaker Check QUESTION #4 FULL TEXT: You/Your Family Experience fever (hyperthermia) with Anesthesia Last Oral Intake Last Oral intake: Last Oral Intake NPO since 05:45 02/13/24 07:18 Meds taken in AM with sips of Yes 02/13/24 07:18 water? Meds patient instructed to take am of surgery Any additional information?: Yes NPO since: 05:45 (Patient took his Ensure for the rest protocol at 5:45AM) PONV PONV - deputy clerk of court: PONV - deputy clerk of court Female No 01/30/24 13:43 HX of Motion Sickness No 01/30/24 13:43 HX of N/V After Surgery No 01/30/24 13:43 Non-Smoker Yes 01/30/24 13:43 Duration of Surgery greater Yes 01/30/24 13:43 than 60 minutes Number of Risk Factors 2 01/30/24 13:43 PONV Score Moderate Risk 01/30/24 13:43 Height & Weight Height & Weight: Anesthesia: Height & Weight Height 5 ft 9 in 02/13/24 07:18 Weight: 93 kg 02/13/24 07:18 Body Mass Index (BMI) 30.2 02/13/24 07:18 Respiratory Assessment Respiratory Assessment - deputy clerk of court: Respiratory Tract Infection Hx - deputy clerk of court Hx Respiratory Tract Infection No 01/30/24 13:43 STOP Sleep Apnea STOP Sleep Apnea - deputy clerk of court: STOP Sleep Apnea - deputy clerk of court Hx Hypertension Yes: NO MEDS FOR 1 YR 01/30/24 13:43 Hx Sleep Apnea Yes 01/30/24 13:43 CPAP Yes 01/30/24 13:43 BIPAP No 01/30/24 13:43 Do you snore loudly (louder than talking or can be heard Do you often feel tired/ fatigued/ sleepy during daytime? Has anyone observed you stop breathing during sleep? STOP Results Positive 01/30/24 13:43 QUESTION #5 FULL TEXT : Do you snore loudly (louder than talking or can be heard through closed doors)? 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 Specify any problems Hx of Preganancy in last 3 N/A 01/30/24 13:43 Months Nurse Filling Out Transfusion DSCHRIBER 01/30/24 13:43 & Questions: Date: 01/30/24 01/30/24 13:43 Time: 13:45 01/30/24 13:43 Patient unable to answer at this time (ie. confused, unrespo /Reproduction History /Reproductive History - deputy clerk of court: /Reproductive Hx- deputy clerk of court Hx Now No 01/30/24 13:43 Gestational Age (in weeks): EDC: Hx Hx Para Hx Section SAB No 01/30/24 13:43 Active Medications Active Medications: Current Medications Generic Name Dose Route Start Last Admin Trade Name Freq PRN Reason Stop Dose Admin Acetaminophen 1,000 mg 02/13/24 08:00 02/13/24 07:10 Acetaminophen 500 Mg Tablet PO 02/13/24 08:01 1,000 mg X1 ONE Administration Celecoxib 400 mg 02/13/24 08:00 02/13/24 07:10 Celecoxib 200 Mg Capsule PO 02/13/24 08:01 400 mg X1 ONE Administration Dexamethasone Sodium Phosphate 10 mg 02/13/24 08:00 Dexamethasone 10 Mg/Ml Vial IV 02/13/24 08:01 X1 ONE Gabapentin 600 mg 02/13/24 08:00 02/13/24 07:10 Gabapentin 600 Mg Tablet PO 02/13/24 08:01 600 mg X1 ONE Administration Tranexamic Acid 1,000 mg/ 110 mls @ 660 mls/hr 02/13/24 08:00 Sodium Chloride IV 02/13/24 08:09 X1 ONE Tranexamic Acid 1,000 mg/ 110 mls @ 660 mls/hr 02/13/24 08:00 Sodium Chloride IV 02/13/24 08:09 X1 ONE Lactated Ringer's 1,000 mls @ 125 mls/hr 02/13/24 08:00 IV 02/13/24 15:59 .Q8H YOANA Magnesium Sulfate 1 gm/ 102 mls @ 408 mls/hr 02/13/24 08:00 02/13/24 07:09 Dextrose IV 02/13/24 08:14 408 mls/hr X1 ONE Administration Cefazolin Sodium 2 gm/ N/A 20 mls @ 400 mls/hr 02/13/24 08:00 IV 02/13/24 08:02 PREOP ONE Lactated Ringer's 1,000 mls @ 15 mls/hr 02/13/24 06:15 02/13/24 07:11 IV 02/18/24 19:34 15 mls/hr .Q48H YOANA Administration Protocol Insulin Human Lispro 1 - 6 unit 02/13/24 08:00 Insulin Lispro 100 Unit/Ml Insuln.Pen SC 02/13/24 18:00 Q4H PRN PRN BG>/= 180, SEE PROTOCOL Protocol Scopolamine HBr 1 patch 02/13/24 08:00 02/13/24 07:11 Scopolamine 1mg/72hr Patch TD 02/13/24 08:01 1 patch X1 ONE Administration PFSH Medical History Anxiety Diabetes Ambulates with cane Low iron Back pain Injury of back Shortness of breath on exertion History of pain when walking History of edema Hx of lipoma Wears glasses Cancer Walker as ambulation aid BPH (benign prostatic hyperplasia) Arthritis Prostate disease High cholesterol Gastric reflux CPAP (continuous positive airway pressure) dependence Former smoker History of echocardiogram History of stress test Cardiology follow-up encounter [place] GERD (gastroesophageal reflux disease) Postoperative atrial fibrillation History of myocardial infarction Atherosclerotic heart disease of [place] coronary artery without angina pectoris Ischemic cardiomyopathy Long-term use of high-risk medication Type 2 diabetes mellitus Hyperlipidemia Carotid bruit Home Medications ?Medication ?Instructions ?Recorded ?Last Taken ?Type aspirin 81 mg tablet,delayed 81 mg PO QHS heart health 09/06/17 01/16/24 History release tamsulosin 0.4 mg capsule 0.4 mg PO QHS BLADDER 01/29/24 Unknown History Allergy/AdvReac Type Severity Reaction Status Date / Time Penicillins AdvReac Severe Nausea Verified 02/13/24 07:24 Family History Mother CAD (coronary artery disease) Hypertension Sister Hypertension Breast cancer Father Cancer Brother Cancer leukemia/lymphoma Surgical History History of cardiac catheterization S/P CABG x 5 Hx of colonoscopy History of left heart catheterization (LHC) (~01/29/19) Presence of stent in coronary artery (~01/17/08) Aortocoronary bypass status (~02/02/09) Postsurgical percutaneous transluminal coronary angioplasty (PTCA) status Social History household members: spouse current occupational status: retired Smoking Status: Former smoker alcohol intake: never substance use type: does not use what type of physical activity do you participate in: bicycling Review of Systems (Anesthesia) ROS Narrative System reviewed and no additional complaints, except as documented.
[2024-02-13 07:55] LABS: Bedside Glucose 191 mg/dL (74-106)
[2024-02-13] MEDS: TXA 1000mg in NS100 100ml (IVPB at Incision) 660 MG IV (08:22)
[2024-02-13] MEDS: dexAMETHasone 10 MG/ML Vial IV (08:26)
[2024-02-13] MEDS: Cefazolin 2 GM in Syringe IV ×3 (08:30→22:39)
[2024-02-13] MEDS: TXA 1000mg in NS100 100ml (IVPB at Closure) 660 MG IV (08:58)
[2024-02-13] MEDS: Epinephrine (1 mg/ml) 1 MG/ML VIAL (09:43)
[2024-02-13] MEDS: 0.9% Normal Saline (Pres. free 10 ML Vial (09:43)
[2024-02-13] MEDS: dexAMETHasone 4 MG/ML Vial (09:43)
[2024-02-13] MEDS: Bupivacaine 0.5% PF 10 ML VIAL (09:43)
--- NOTE | 2024-02-13 10:57 | RAD_ITS ---
EXAM: XR RIGHT KNEE, 1 OR 2 VIEWS CLINICAL INDICATION: post op -- AP and Lateral xray of operative knee in PACU TECHNIQUE: Frontal and/or lateral views of the right knee. COMPARISON: No relevant prior studies available. FINDINGS: BONES/JOINTS: Total knee prosthesis in place in satisfactory position. SOFT TISSUES: Soft tissue gas and anterior skin yessica noted related to the recent surgery. No radiopaque foreign body. RAD/Knee 1 or 2 Views IMPRESSION: Satisfactory postop changes. Electronically Signed: Des Mota MD at 12:41 EST ,
--- NOTE | 2024-02-13 11:00 | PCM.POST.ANE ---
Anesthesia: Postop Eval I Current Vital Signs Temperature: 97.3 F Pulse Rate: 77 Blood Pressure: 102/67 Respiratory Rate: 20 Pulse Ox: 94 Assessment Airway patent: Yes Spontaneous unlabored respirations: Yes nausea: No Vomiting: No Anesthesia Complication: No Fluid Hydration Crystalloid volume administer (ml): 2,000 Total IV fluid infused: 2,000 Progress Note Anesthesia document: Postop Eval 1 completed: Yes
--- NOTE | 2024-02-13 11:02 | OP.PCM_ITS ---
Operative Report (Standard) Operative Information Surgery/Procedure Performed: Right total knee arthroplasty Surgeon: Blair Landers Date of Procedure: 02/13/24 Procedure Start Time: 08:36 Procedure Stop Time: 10:57 Pre-Operative Diagnosis: Right knee DJD Post-Operative Diagnosis: Right knee DJD Select all DRAINS/GRAFTS/IMPLANTS that apply: None and Implanted device Implanted device details: [place] Type of Anesthesia: Spinal Estimated Blood Loss: 175 Specimen collected: Yes Description of specimen(s) removed: Bone Description of surgery: Preoperative diagnosis: Right knee DJD Postoperative diagnosis: Same Procedure: Right total knee arthroplasty CT guided Robotic Assisted Implant: Glory triathlon press fit, femoral component size 4, tibial baseplate size 4, asymmetric patella size 32, polyethylene X3 size 9 CS Anesthesia: Spinal with adductor canal block Tourniquet time: 12 minutes at 300 mmHg Complications: None Condition: Stable to PACU Estimated blood loss: 175 cc Laser Specialist Nolan Younger. My physician plant attendant or assistant operator was a vital part of this case. He was important in appropriate retraction during the case, and protection of soft tissues during procedure. His intimate knowledge of the case and my steps aided in safe and expedient completion of the procedure as well as appropriate position of the extremity during the case. He was also vital in assisting with closure under my direct supervision. Indication for procedure: This is a 68-year-old male with long standing degenerative joint disease of the knee who has failed conservative treatment and wished to proceed with elective total knee arthroplasty. Risk benefits and alternatives were reviewed including; risk of bleeding, infection, nerve artery and tissue damage, continued pain, postoperative stiffness, venous thromboembolism, need for postoperative rehabilitation, mechanical feel to the knee, and expected postoperative course. The pre- operative CT and templating was performed with component sizing. Procedure: The patient was met in the preoperative holding area. The operative extremity was identified by both patient and physician and was marked. Patient was met by anesthesia. An adductor canal block was placed by anesthesia postoperatively the patient was brought back to the operating room on a wheeled cart and transferred to the operating table in the supine position. Anesthesia was started. A well-padded tourniquet was placed on the operative extremity. The patient was prepped and draped in the usual sterile fashion. A timeout was called to ensure the proper patient procedure and extremity were being contemplated. An esmarch was used to exsanguinate the extremity. The tourniquet was inflated. A 10 blade scalpel was used to make a midline incision down through the skin and subcutaneous tissue. Skin retractors placed. Bovie and Aquamantis were used to perform meticulous hemostasis. full-thickness flaps were elevated medial and lateral along the joint capsule. A deep blade scalpel was used to perform a medial parapatellar arthrotomy. The knee was brought to full extension. A bovie was used to release the soft tissues off the most proximal aspect of the medial tibial plateau, a three-quarter inch curved oste otome was also used in this process. The infrapatellar fat pad was excised. The suprapatellar fat pad was excised partially anteriorolateraly and portion the anterioromedial pad was elevated from the femur. At this point our intra- articular femoral array was placed at a 45 degree angle proximal and posterior to the medial epicondyle. femoral checkpoint was placed at this time. Our tibial array was placed partially intra incisional 1 stab incision was made for the inferior pin with a 15 blade scaple, and pins were placed and attached to the tibial array , tibial checkpoint was placed in the proximal tibial metaphysis. Tourniquet was let down. At this point registration navarro were taken throughout the knee . Once the knee was registered we then tensioned the medial and lateral ligaments in extension and 90 degrees of flexion. We then used these numbers to adjust our components within parameters to balance the knee in both flexion and extension once this was done on our monitor we then proceeded with using the robotic arm to make our tibial plateau cut, anterior and posterior chamfer and distal femur cuts. we removed the cut fragments with the use of a bovie and Panfilo, we did use a lamina marine equipment engineer to insure we visualized and removed all posterior osteophytes and at this time also used the Aquamantis on the posterior joint capsule. we then trialed and achieved the de sired plan with a well-balanced knee. we used the green probe to eleanor the corresponding tibial rotation based on our CT template. Lug holes were drilled in the femur the tibia preparation was completed with the appropriate sized base plate pinned based on previous rotation eleanro. An appropriate sized fin punch was used on the tibia and 4 corner drill was used for the press fit component and the patella was prepared by first using a caliper to ensure sufficient bone stock and a patellar reamer to remove the desired amount of bone. lug holes drilled for an asymmetric poly there was a bipartite patella and the superior portion was excised. He did have significant bony ingrowth in the patellar tendon and we could not take it down fully or otherwise we would have disrupted the patellar tendon attachment there is no impingement. We then brought the knee through range of motion with excellent patellar tracking. We did have to recut the tibial plateau 2 mm for appropriate balancing. we thoroughly irrigated the knee. Trial components were removed a posterior capsular injection was preformed with our standard cocktail. In addition the aqua Mantis was also used to aid in hemostasis. Betadine rinse was allowed to sit and washed out completely. Components were press-fit into place. Aricept rinse was then used followed by several more liters of irrigation after it was allowed to sit. The joint capsule was closed with #1 Ethibond [id number] in the upper part of the arthrotomy and #1 Vicryl in the lower part of the arthrotomy. , Followed by 2-0 Vicryl in the subcutaneous tissues with yessica in the skin. Arrays and checkpoints were removed prior to closure all counts were correct stab incisions were closed with a staple standard dressing in the form of Mepilex AG for the main incision and a small Mepilex over the pin holes. Thigh-high ELTON hose applied over top of dressing. Patient tolerated the procedure well and was directed to PACU in stable condition . There were no intraoperative complications. 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
[2024-02-13] MEDS: Lactated Ringers 1,000 ML 125 ML IV (11:50)
[2024-02-13 12:14] LABS: Bedside Glucose 147 mg/dL (74-106)
[2024-02-13] MEDS: 0.9% Saline Lock 10 ML Syringe IV ×2 (15:48→22:39)
--- NOTE | 2024-02-13 16:43 | POSTOPAN2_ITS ---
Anesthesia Postop Eval I Sum Postop Eval Completion status Anesthesia document: Postop Eval 1 completed: Yes Anesthesia Postop Eval I Summary Anesthesia Postop Eval I Summary: Anesthesia Postop Eval I: Assessment Summary Airway patent Yes 02/13/24 11:00 CLIENT SERVICE REPRESENTATIVE.CSIR Spontaneous unlabored Yes 02/13/24 11:00 CLIENT SERVICE REPRESENTATIVE.CSIR respirations Mental status nausea No 02/13/24 11:00 CLIENT SERVICE REPRESENTATIVE.CSIR Vomiting No 02/13/24 11:00 CLIENT SERVICE REPRESENTATIVE.CSIR Anesthesia Postop Eval I: Fluid Summary Crystalloid volume administer 2,000 02/13/24 11:00 CLIENT SERVICE REPRESENTATIVE.CSIR (ml) Colloids volume administered ( ml) Blood Product volume administered (ml) Total IV fluid infused 2,000 02/13/24 11:00 CLIENT SERVICE REPRESENTATIVE.CSIR Anesthesia Postop Eval I: Summary Notes Anesthesia Complication No 02/13/24 11:00 CLIENT SERVICE REPRESENTATIVE.CSIR Anesthesia Complication Comment: Post-operative progress note Anesthesia: Postop Eval II Evaluation Mental status: Awake and Calm Pain Level: 1 nausea: No Vomiting: No Complications Anesthesia Complication: No
--- NOTE | 2024-02-13 16:43 | PCM.POSTANE2 ---
Anesthesia Postop Eval I Sum Postop Eval Completion status Anesthesia document: Postop Eval 1 completed: Yes Anesthesia Postop Eval I Summary Anesthesia Postop Eval I Summary: Anesthesia Postop Eval I: Assessment Summary Airway patent Yes 02/13/24 11:00 [place] HISTORY PROFESSOR.CSIR Spontaneous unlabored Yes 02/13/24 11:00 [place] HISTORY PROFESSOR.CSIR respirations Mental status nausea No 02/13/24 11:00 [place] HISTORY PROFESSOR.CSIR Vomiting No 02/13/24 11:00 [place] HISTORY PROFESSOR.CSIR Anesthesia Postop Eval I: Fluid Summary Crystalloid volume administer 2,000 02/13/24 11:00 [place] HISTORY PROFESSOR.CSIR (ml) Colloids volume administered ( ml) Blood Product volume administered (ml) Total IV fluid infused 2,000 02/13/24 11:00 [place] HISTORY PROFESSOR.CSIR Anesthesia Postop Eval I: Summary Notes Anesthesia Complication No 02/13/24 11:00 [place] HISTORY PROFESSOR.CSIR Anesthesia Complication Comment: Post-operative progress note Anesthesia: Postop Eval II Evaluation Mental status: Awake and Calm Pain Level: 1 nausea: No Vomiting: No Complications Anesthesia Complication: No
[2024-02-13] MEDS: oxyCODONE 5 MG Tablet PO (21:17)
[2024-02-13] MEDS: Tamsulosin HCl 0.4 MG Capsule PO (21:56)
[2024-02-13] MEDS: Senna/Docusate Sodium 1 Tablet 2 TABLET PO (21:56)
[2024-02-14 00:14] VITALS: BP 124/64; PULSE 70; RESP 16; TEMP 36.8; O2SAT 98
[2024-02-14 05:00] VITALS: BP 138/80; PULSE 66; RESP 16; TEMP 36.4; O2SAT 99
[2024-02-14] MEDS: Acetaminophen 500 MG Tablet 1000 MG PO ×3 (05:04→20:18)
[2024-02-14] MEDS: APIXABAN 2.5 MG TABLET (WCH) PO ×2 (06:36→20:18)
[2024-02-14] MEDS: Cefazolin 2 GM in Syringe IV (06:38)
[2024-02-14 07:38] LABS: Hematocrit 41.9 % (40-54); Hemoglobin 13.5 g/dL (13.0-16.5); Mean Corp Hgb Conc 32.2 g/dL (32-36); Mean Corpuscular Hgb 28.6 pg (27.0-32.0); Mean Corpuscular Volume 88.8 fL (80-94); Mean Platelet Vol. 10.6 fl (6.2-12.0); Platelet Count 251 K/mm3 (150-450); RBC Distribution Width CV 13.3 % (11.6-14.6); RBC Distribution Width SD 43.3 fl (35.1-43.9); Red Blood Count 4.72 M/mm3 (4.6-6.2); White Blood Count 14.7 K/mm3 (4.4-11.0)
[2024-02-14 08:04] LABS: Anion Gap 6 (5-15); BUN 15 mg/dL (7-18); BUN/Creat Ratio 15.3 RATIO (10-20); Calcium,Total 9.3 mg/dL (8.5-10.1); Chloride 108 mmol/L (98-107); Creatinine, Serum 0.98 mg/dL (0.70-1.30); EST Glomerular Filtration Rate 81 mL/min (>60); Est Glom Filt Rate - Afr Amer 97 mL/min (>60); Estimated Creatinine Clearance 78.99 ml/min; Glucose 147 mg/dL (74-106); Potassium 4.7 mmol/L (3.5-5.1); Sodium Level 139 mmol/L (136-145)
[2024-02-14 08:37] VITALS: BP 134/67; PULSE 78; RESP 16; TEMP 36.8; O2SAT 100
[2024-02-14] MEDS: Senna/Docusate Sodium 1 Tablet 2 TABLET PO ×2 (09:05→20:18)
--- NOTE | 2024-02-14 09:57 | PCM.PN.ORT ---
Subjective Subjective Seen and examined doing well pain controlled no nausea vomiting shortness of breath or chest pain. Ambulating well in the halls Objective Data Objective Data Vital Signs: Vital Signs Temp Pulse Resp BP Pulse Ox O2 Del Method O2 Flow Rate 98.3 F 78 16 134/67 H 100 Room Air 2 02/14/24 08:37 02/14/24 08:37 02/14/24 08:37 02/14/24 08:37 02/14/24 08:37 02/14/24 08:37 02/14/24 05:00 Oxygen Flow Rate (L/min) 2 Oxygen Delivery Method Room Air Weight: 205 lb 0.478 oz Body Mass Index (BMI) 30.2 Intake & Output: Intake and Output for Last 24 Hours 02/12/24 02/13/24 02/14/24 23:59 23:59 23:59 Intake Total 2152.83 / 2152.83 Output Total 1200 / 1200 400 / 400 Balance 952.83 / 952.83 -380 / -380 Lab / Micro Data 02/14/24 05:49 02/14/24 05:49 Labs: Laboratory Results - last 24 hr 02/13/24 11:47: POC Glucose 147 H 02/14/24 05:49: WBC 14.7 H, RBC 4.72, Hgb 13.5, Hct 41.9, MCV 88.8, MCH 28.6, MCHC 32.2, RDW Std Deviation 43.3, RDW Coeff of Kaley 13.3, Plt Count 251, MPV 10.6, Sodium 139, Potassium 4.7, Chloride 108 H, Carbon Dioxide 25.0, Anion Gap 6, BUN 15, Creatinine 0.98, Estim Creat Clear Calc 78.99, Est GFR (MDRD) Af Amer 97, Est GFR (MDRD) Non-Af 81, BUN/Creatinine Ratio 15.3, Glucose 147 H, Calcium 9.3 Radiography Diagnostic Testing: Radiology Impression Knee X-Ray 02/13/24 10:57 IMPRESSION: Satisfactory postop changes. Electronically Signed: Des Mota MD at 12:41 EST , Physical Exam Const alert, oriented x3 and no apparent distress General Appearance: cooperative Extremity Extremity Narrative: Right knee dressing clean dry intact compartment soft neurovascular intact EHL tibialis anterior gastrocsoleus intact sensation light touch 2 out of 4 pedal pulse Assessment & Plan Assessment/Plan (1) S/P total knee arthroplasty: QUALIFIERS: Laterality: right Qualified Code(s): Z96.651 - Presence of right artificial knee joint PLAN: Plan Postop day #1 right total knee arthroplasty PT OT weightbearing as tolerated DVT prophylaxis SCDs ELTON hose Eliquis 2.5 mg twice daily DC planning home tomorrow Pain control oxycodone Tylenol
--- NOTE | 2024-02-14 11:05 | CASEMGMT ---
JAYASHREE ROME Assessment: Face to Face with pt for initial transition planning/care coordination assessment. JAYASHREE ROME introduced self and role at [facility], pt voices understanding and consents to assessment. Pt is A&O x4 and answers all questions appropriately at this time. Pt lying in bed in no distress. Care providers, pharmacy, and demographics verified/updated. Admitting Dx: R TKR Strata Score: 2 PCP:Danish Specialists:Borruabhijit, ortho; Jorge, derm; Robbie, uro; Brown, pulm; Schuler, eyes Preferred Pharmacy: [facility] Insurance: [id number] Prescription Benefit: yes LNOK: Eufemia Samuel, Living Arrangements: Pt lives with in a two story home with FFSU and 2 steps to enter with a rail. Pt reports prior to surgery he was I in ADLs and denies concerns at home. Transportation: Pt drives self and denies concerns with transportation. Pt will transport pt until he can drive again. DME:wide doorways in home, grab bars in bathroom, built in shower seat, walk in shower, FWW, cane HHC/SNF: Pt has had HHC in the past but cannot recall the name of the agency. Pt denies SNF stays. Pt states no concerns with going home at time of dc. Pt has outpt therapy set up on Monday at [facility]. Pt states no further concerns/needs. CM to follow. Advised pt to ask CM if any further question/concerns/needs arise, voices understanding. Pt Goal: Home with outpt therapy Plan: Home with outpt therapy Ofelia BLANC CM
[2024-02-14 13:40] VITALS: BP 135/61; PULSE 67; RESP 18; TEMP 36.8
[2024-02-14] MEDS: oxyCODONE 5 MG Tablet PO ×2 (13:51→17:49)
[2024-02-14 19:50] VITALS: BP 143/82; PULSE 63; RESP 16; TEMP 36.8; O2SAT 96
[2024-02-14] MEDS: Tamsulosin HCl 0.4 MG Capsule PO (20:18)
[2024-02-15 03:40] VITALS: BP 120/77; PULSE 57; RESP 16; TEMP 36.7; O2SAT 95
[2024-02-15 03:42] VITALS: PULSE 57; RESP 16
[2024-02-15] MEDS: oxyCODONE 5 MG Tablet PO (05:43)
[2024-02-15] MEDS: Acetaminophen 500 MG Tablet 1000 MG PO (05:44)
[2024-02-15 06:09] LABS: Hematocrit 38.5 % (40-54); Hemoglobin 12.4 g/dL (13.0-16.5); Mean Corp Hgb Conc 32.2 g/dL (32-36); Mean Corpuscular Hgb 28.2 pg (27.0-32.0); Mean Corpuscular Volume 87.7 fL (80-94); Mean Platelet Vol. 10.6 fl (6.2-12.0); Platelet Count 209 K/mm3 (150-450); RBC Distribution Width CV 13.5 % (11.6-14.6); RBC Distribution Width SD 43.8 fl (35.1-43.9); Red Blood Count 4.39 M/mm3 (4.6-6.2); White Blood Count 8.7 K/mm3 (4.4-11.0)
[2024-02-15 07:55] VITALS: BP 116/83; PULSE 57; RESP 18; TEMP 36.5; O2SAT 98
[2024-02-15] MEDS: APIXABAN 2.5 MG TABLET (WCH) PO (09:56)
[2024-02-15] MEDS: Senna/Docusate Sodium 1 Tablet 2 TABLET PO (09:56)
--- NOTE | 2024-02-15 10:18 | PCM.PN.ORT ---
Subjective Subjective Seen and examined doing well pain controlled ambulating halls wishes to be discharged home today no fevers chills nausea vomit shortness of breath or chest pain Objective Data Objective Data Vital Signs: Vital Signs Temp Pulse Resp BP Pulse Ox O2 Del Method O2 Flow Rate 97.7 F L 57 L 18 116/83 H 98 Room Air 2 02/15/24 07:55 02/15/24 07:55 02/15/24 07:55 02/15/24 07:55 02/15/24 07:55 02/15/24 07:55 02/14/24 05:00 Oxygen Flow Rate (L/min) 2 Oxygen Delivery Method Room Air Weight: 205 lb 0.478 oz Body Mass Index (BMI) 30.2 Intake & Output: Intake and Output for Last 24 Hours 02/13/24 02/14/24 02/15/24 23:59 23:59 23:59 Intake Total 2152.83 / 2152.83 140 / 140 400 / 400 Output Total 1200 / 1200 1000 / 1000 500 / 500 Balance 952.83 / 952.83 -860 / -860 -100 / -100 Lab / Micro Data 02/15/24 05:10 02/14/24 05:49 Labs: Laboratory Results - last 24 hr 02/15/24 05:10: WBC 8.7, RBC 4.39 L, Hgb 12.4 L, Hct 38.5 L, MCV 87.7, MCH 28.2, MCHC 32.2, RDW Std Deviation 43.8, RDW Coeff of Kaley 13.5, Plt Count 209, MPV 10.6 Physical Exam Const alert, oriented x3 and no apparent distress General Appearance: cooperative Extremity Extremity Narrative: Right knee dressing clean dry intact compartment soft neurovascular intact EHL tibialis anterior gastrocsoleus intact sensation light touch 2 out of 4 pedal pulse Assessment & Plan Assessment/Plan (1) S/P total knee arthroplasty: QUALIFIERS: Laterality: right Qualified Code(s): Z96.651 - Presence of right artificial knee joint PLAN: Plan Postop day #2 right total knee arthroplasty PT OT weightbearing as tolerated DVT prophylaxis SCDs ELTON hose Eliquis 2.5 mg twice daily DC home Pain control oxycodone Tylenol
--- NOTE | 2024-02-15 10:19 | DCINST_ITS ---
Discharge Instructions Diet Discharge Diet: No restrictions DC O2, CPAP, BIPAP needs Additional Home O2 Discharge instructions: No Dressing / Incision Call your doctor if you observe: Shortness of breath and Chest pain Additional Dressing/Incision Instructions:: Ice and elevate lower extremities 2 weeks while not ambulating. Ambulation is encouraged. Weight bearing as tolerated. Use assistive devise for stability. Encourage FULL knee extension and flexion 1 time EVERY time you get up and down and MULTIPLE times per day. No showering until 72 hours after surgery. May begin showering postop day #3. Remove the dressing prior to shower and gently wash with warm water and antibacterial soap then pat dry and place abdominal pad (or plain gauze) and ELTON hose over top. This is to be done daily. If he does not wish to shower beginning postop day #3 and sponge bathe only he may leave the dressing undisturbed for 7 days postoperatively after which point it must be removed and cleaned daily. do not submerge for 3 weeks. If not showering daily after the initial 72 hours then you must clean incision and change dressing daily after the dressing comes off, must come off by 7 days postop. Do not allow animals near the incision area. Keep clean. Follow anti-coagulation recommendations as prescribed. Do not take any NSAIDs while on blood thinner. Do not take any additional narcotic pain medication other than what was prescribed on your surgery day without discussing with physician. Narcotic medication can be addictive. Do not drink alcohol while taking narcotics. Supplement narcotic prescription with acetaminophen 1000 mg 4 times a day. Start physical therapy. If you are not currently scheduled for physical therapy or you are unsure of appointment time please call office [facility] to arrange. Call Dr. Landers with any concerns. Follow Up Care Please Follow Up With: Blair Landers DO When: 2 weeks Test Results: Test results from this visit will be discussed in further detail at your follow- up appointment, if applicable. Discharge Plan Admission Admit Date/Time: 02/13/24 10:58 Primary Reason for Your Visit: Right total knee arthroplasty Attending Provider: Blair Landers Primary Care Provider: Sheree Peng Discharge Orders/Prescriptions Prescriptions: New acetaminophen 500 mg tablet 1,000 mg PO Q6H Qty: 100 0RF oxycodone 5 mg tablet 5 - 10 mg PO Q6H PRN (Reason: pain) 7 Days Qty: 60 0RF Eliquis 2.5 mg tablet 2.5 mg PO BID Qty: 28 0RF Rx Instructions: Begin morning after surgery. Continued aspirin 81 mg tablet,delayed release (DR/EC) 81 mg PO QHS tamsulosin 0.4 mg capsule 0.4 mg PO QHS Referrals / Follow Up: Sheree Peng MD [Primary Care Provider] - Disposition Disposition (needs filled in before D/C Order can be placed): Home, Self Care
--- NOTE | 2024-02-15 10:23 | PCM.DC.SUM ---
Providers Date of Admission: 02/13/24 Primary Care Physician: Dr. Sheree Peng MD Reason For Visit: Right Total Knee Replacement Robotic Arm Assisted Diagnosis Discharge Diagnosis (1) S/P total knee arthroplasty: Status: Acute Code(s): Z96.659 - Presence of unspecified artificial knee joint Qualifiers: Laterality: right Qualified Code(s): Z96.651 - Presence of right artificial knee joint Plan Postop day #2 right total knee arthroplasty PT OT weightbearing as tolerated DVT prophylaxis SCDs ELTON hose Eliquis 2.5 mg twice daily DC home Pain control oxycodone Tylenol Medications at Discharge Home Medications aspirin 81 mg tablet,delayed release 81 mg PO QHS heart health 09/06/17 tamsulosin 0.4 mg capsule 0.4 mg PO QHS BLADDER 01/29/24 acetaminophen 500 mg tablet 1,000 mg (2 x 500 mg) PO Q6H #100 tabs 02/15/24 apixaban 2.5 mg tablet (Eliquis) 2.5 mg PO BID #28 tabs 02/15/24 oxycodone 5 mg tablet 5 - 10 mg (1 - 2 x 5 mg) PO Q6H PRN pain 7 days #60 tabs 02/15/24 Hospital Course Operations total knee replacement Summary of Care Provided Hospital Course: Who has long history of 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 Patient underwent the aformentioned procedure on the admission date without any intraoperative complications. Patient did receive pre-and postoperative antibiotics which were discontinued within 23 hours postoperatively. Patient did receive spinal anesthesia as well as an adductor canal block postoperatively. pain was controlled with IV and transition to p.o. pain medication Patient will be discharged home with oxycodone and will continue Tylenol as well. Patient had minimal intraoperative blood loss and 2gm tranexamic acid was administered there was no need for postoperative blood transfusion Patients vital signs remained stable. Patient was started on both mechanical and chemical DVT per prophylaxis postoperatively in the form of SCDs ELTON hose and Eliquis 2.5 mg twice daily for which she will continue for 2 additional weeks post hospital discharge. thigh high elton hose placed over top of the meplix silver dressing. This should be removed 72 hrs post operatively and showering begun daily at that time with warm water and antibacterial soap. not to submerge for 3 weeks. To change dressing daily after first dressing change. Patient will follow-up in the office in 2 weeks. No intrahospital complications. Weight / BMI Weight Weight: 205 lb 0.478 oz Body Mass Index (BMI) 30.2 ABG / Lab / Microbiology Data 02/15/24 05:10 02/14/24 05:49 Laboratory: Laboratory Results - last 24 hr 02/15/24 05:10: WBC 8.7, RBC 4.39 L, Hgb 12.4 L, Hct 38.5 L, MCV 87.7, MCH 28.2, MCHC 32.2, RDW Std Deviation 43.8, RDW Coeff of Kaley 13.5, Plt Count 209, MPV 10.6 D/C Instructions Discharge Diet: No restrictions Call your doctor if you observe: Shortness of breath and Chest pain Additional Dressing/Incision Instructions: Ice and elevate lower extremities 2 weeks while not ambulating. Ambulation is encouraged. Weight bearing as tolerated. Use assistive devise for stability. Encourage FULL knee extension and flexion 1 time EVERY time you get up and down and MULTIPLE times per day. No showering until 72 hours after surgery. May begin showering postop day #3. Remove the dressing prior to shower and gently wash with warm water and antibacterial soap then pat dry and place abdominal pad (or plain gauze) and ELTON hose over top. This is to be done daily. If he does not wish to shower beginning postop day #3 and sponge bathe only he may leave the dressing undisturbed for 7 days postoperatively after which point it must be removed and cleaned daily. do not submerge for 3 weeks. If not showering daily after the initial 72 hours then you must clean incision and change dressing daily after the dressing comes off, must come off by 7 days postop. Do not allow animals near the incision area. Keep clean. Follow anti-coagulation recommendations as prescribed. Do not take any NSAIDs while on blood thinner. Do not take any additional narcotic pain medication other than what was prescribed on your surgery day without discussing with physician. Narcotic medication can be addictive. Do not drink alcohol while taking narcotics. Supplement narcotic prescription with acetaminophen 1000 mg 4 times a day. Start physical therapy. If you are not currently scheduled for physical therapy or you are unsure of appointment time please call office [facility] to arrange. Call Dr. Landers with any concerns. DC O2, CPAP, BIPAP Needs Additional Home O2 Discharge instructions: No DC home with Oxygen: No Please Follow Up With: Blair Landers DO When: 2 weeks Meaningful Use Info Meaningful Use Meaningful Use Diagnoses (Choose all that apply): None applicable Ischemic Stroke Statin Dosing Therapy Reference: STATIN DOSE THERAPY REFERENCE: * Patients > 75 years receive moderate or high dose statin therapy. * Patients 75 years or YOUNGER should receive HIGH intensity statin dose unless contraindicated. You will be required to document reason for non-treatment if statin daily dose does not meet guidelines. HIGH DOSE STATIN THERAPY DAILY Atorvastatin > than or = to 40 mg Rosuvastatin > than or = to 20 mg Amlodipine + Atorvastatin > than or = to 2.5/40 mg Ezetimibe + Simvastatin 10/80 mg Simvastatin 80mg Discharge Plan Admission Admit Date/Time: 02/13/24 10:58 Primary Reason for Your Visit: Right total knee arthroplasty Attending Provider: Blair Landers Primary Care Provider: Sheree Peng Discharge Orders/Prescriptions Prescriptions: New acetaminophen 500 mg tablet 1,000 mg PO Q6H Qty: 100 0RF oxycodone 5 mg tablet 5 - 10 mg PO Q6H PRN (Reason: pain) 7 Days Qty: 60 0RF Eliquis 2.5 mg tablet 2.5 mg PO BID Qty: 28 0RF Rx Instructions: Begin morning after surgery. Continued aspirin 81 mg tablet,delayed release (DR/EC) 81 mg PO QHS tamsulosin 0.4 mg capsule 0.4 mg PO QHS Referrals / Follow Up: Sheree Peng MD [Primary Care Provider] - Disposition Disposition (needs filled in before D/C Order can be placed): Home, Self Care
--- NOTE | 2024-02-15 11:25 | CASEMGMT ---
TC to [facility] pharmacy, cost of eliquis was $250 nick but savings card was applied for zero cost. JAYASHREE CM into pt room, pt made aware of cost of med. Pt feels ready for dc and will attend OP therapy. Pt denies any homegoing needs. Pt present. Pt prefers meds be delivered to the room. TC to [facility], spoke with Zack, he is aware.
[2024-02-15 12:12] VITALS: BP 120/77; PULSE 67; RESP 18; TEMP 37.1; O2SAT 99
== END 2024-02-15 13:05 | disposition home or self-care (01) | DRG 470 ==
PROVIDERS: Admitting Provider Orthopaedic Surgery; PCP Family Medicine; Referring Provider Orthopaedic Surgery; Visit Provider Orthopaedic Surgery
PROC: 0SRC0JZ Replacement of Right Knee Joint with Synthetic Substitute, Open Approach (ICD-10-PCS; CPT 27447; principal; 2024-02-13 07:30)
DX: M17.11 Unilateral primary osteoarthritis, right knee (principal); E11.9 Type 2 diabetes mellitus without complications; I10 Essential (primary) hypertension; G47.33 Obstructive sleep apnea (adult) (pediatric); I25.10 Atherosclerotic heart disease of native coronary artery without angina pectoris; I25.5 Ischemic cardiomyopathy; I25.2 Old myocardial infarction; Z95.5 Presence of coronary angioplasty implant and graft; Z87.891 Personal history of nicotine dependence; Z95.1 Presence of aortocoronary bypass graft; Z79.82 Long term (current) use of aspirin
CPT/HCPCS: 36415; 73560; 80048; 82962; 85027; 88305; 88311; 93005; 94668; 97110; 97162; 97166; 97530; 97535; C1776; J7120; A4216; J2405; J3475; J3490

== ENCOUNTER 2024-03-15 13:00 | Outpatient (RCR) | payer MEDICARE, OTHER, SELFPAY ==
--- NOTE | 2024-02-19 07:46 | HP.PTEVAL ---
Patient's Visit Information Visit Information Visit Information: ELENITA PORTILLO is a 68 year old M referred to Physical Therapy by Dr. Blair Landers DO with a diagnosis of R TKA, DOS: 02/13/24. Date of Evaluation: 02/19/24 Physical Therapist: Foster Forte DPT Visit Plan Frequency: 3x /Week Duration: 8 weeks Plan: 1) edema control and ROM progressing. Progress towards 0-0-120deg., HS stretching 2) quad activation progressing to functional LE strengthening. 3) gait progression, progressing from AD to no AD with good mechanics. May use ice and vaso for edema. Subjective Subjective: Pt. is here today for his initial evaluation with diagnosis of R TKA. Pt. reports overall doing well. He arrives using FWW. Pt. reports doing his exercises and icing as prescribed. Pt. has TEDs on. Pt. reports taking pain meds as prescribed. Pt. has bandage in place, to remove tomorrow. Pt. denies any N/T. Pt. 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 Pt. reports 3/10 pain currently. No N/T noted. Pt. is sleeping okay, but is sleeping in reclining chair. Pt. denies calf pain. Pt. denies shortness of breath. Pt. is hopeful to get back to all recreational and ADLs without limitations. Pain R knee: Pain Intensity (Out of 10): 4 Pain Intensity Range: 2 and 6 Objective Objective: POSTURE: PT. has slight flexed posture in stance. Pt. has slight wt. shift to R side as well. No major varus or valgus noted. PALPATION: Pt. reports no calf pain, Bandage in place, to be removed tomorrow. Negative homans. NEURO: Pt. has normal sensation and DTR of distal LEs. ROM: R knee: 0-2- 83deg. Pt. has tightness in HS MMT: PT. has good quad set, SLR with ~25deg lag. Knee: ext 5#, flexion 8#; hip: flexion 0#, abd 5#, ext 3#. gait: pt. ambulates well with FWW, but does have flexed posture with heavy use of AD. STAIRS: Step to pattern with use of BHR. TU.1sec with FWW 30sec sit to stand test: 11 with slight use of UEs. Balance/Special Test Scores WOMAC Total Score: 66 WOMAC Percentatge: 31.2500 Goals Goal 1:: LTG: Pt. to be I with HEP for ROM and strengthening of RLE. Goal Time Frame: 4-6 Weeks Goal 2:: STG: Pt. to have increased R knee ROM increased to 0-0-120deg allowing for full functional mobility. Goal Time Frame: 2-4 Weeks Goal 3:: LTG: Pt. to have symmetrical strength between BLEs. Goal Time Frame: 6-8 Weeks Goal 4:: LTG: Pt. to ambulate without use of AD with normal gait pattern. Goal Time Frame: 6-8 Weeks Goal 5:: LTG: Pt. to complete TUG with time less than 10seconds. Goal Time Frame: 6-8 Weeks Goal 6:: LTG: Pt. to complete 30sec sit to stand rep test with at least 15 reps indicating proper functional strength. Goal Time Frame: 6-8 Weeks Rehabilitation Potential Physical Therapy Diagnosis: Pt. signs and symptoms consistent with a R TKA, DOS: 02/13/24. Pt. has marked hypombility, weakness, increased edema, and difficulty with walking. Pt. would benefit from PT to address the above limitations progressing back to all previous levels of function. Rehabilitation Potential: Excellent Anticipated Interventions Patient/Client Instruction: Educate patient on: Condition, Plan of Care, Risk Factors and Benefits of Fitness Program For the Purpose of:: To facilitate caregiver knowledge, To improve self management, To prevent re-injury, To improve ability to perform tasks related to life management and To improve tolerance to ADL's Therapeutic Exercise to Include: Strength training, Power training, Endurance training, Balance training, Postural training, Flexibilty training, Gait and locomotor training, Passive ROM and Active ROM For the Purpose of:: To decrease pain, To decrease swelling/inflammation, To increase ROM, To improve nutrient delivery to tissue, To increase oxygenation perfusion, To improve muscle performance and motor function, To improve ability to perform ADL's, To improve gait and locomotor functions, To improve health of tissue and To decrease soft tissue restriction Manual Therapy Techniques to Include: Scar massage, Mobilization and Passive ROM For the Purpose of:: To decrease pain, To decrease swelling/inflammation, To increase ROM, To improve nutrient delivery to tissue and To increase oxygenation perfusion Text: Thank you for the opportunity to evaluate your patient. For Medicare and Medicare HMO plans, please review the plan of care and approve it. It will need to be FAXED BACK to us at [phone] for Medicare purposes. For Medicare only, by signing this I certify the plan of care. Please let me know if there are questions or concerns regarding this plan of care. Physician Signature: Date:
--- NOTE | 2024-03-18 09:02 | HP.PTDCSUM ---
Discharge Summary D/C summary: It has been my pleasure to treat TARIK PORTILLO referred by Dr. Blair Landers DO, with the diagnosis of R TKA, DOS: 02/13/24 for a total of 13 visit(s). Discharge Date: 03/15/24 Please see the following information for a summary of their discharge status. Subjective Subjective: Pt. reports overall doing well. He reports that his copay has increased in the new year and would like to do most of his therapy on his own. Pt. reports overall pain in low 0-1/10 pain most of the time. He is sleeping well. He is no longer using an AD. Pt. reports being HEP compliant. Pain R knee: Pain Intensity (Out of 10): 0 Overall Improvement % Improvement: 95 Objective Objective/Function: ROM: 0-0-125deg. MMT: Pt. symmetrical strength throughout BLEs, except knee ext which is: 23.5# on R side, 32.9# on L side. GAIT: pt. has slight antalgic pattern during R stance phase. Pt. was able to correct with VCing. TU.2sec no AD STAIRS: Pt. is able to complete with 1 HR with reciprocal pattern without much difficulty, slight increase in symptoms with descending. Overall Tarik is doing well. We gave him gym exercises to work on. I want him to ease into them and slowly progress his strengthening. His ROM is overall doing great. Pt. consents to this plan. Goals Goal 1:: LTG: Pt. to be I with HEP for ROM and strengthening of RLE. Goal Progress: Goal Met Goal 2:: STG: Pt. to have increased R knee ROM increased to 0-0-120deg allowing for full functional mobility. Goal 3:: LTG: Pt. to have symmetrical strength between BLEs. Goal Progress: Progressing Goal 4:: LTG: Pt. to ambulate without use of AD with normal gait pattern. Goal Progress: Goal Met Goal 5:: LTG: Pt. to complete TUG with time less than 10seconds. Goal Progress: Goal Met Goal 6:: LTG: Pt. to complete 30sec sit to stand rep test with at least 15 reps indicating proper functional strength. Goal Progress: Goal Met Plan Plan: Pt. to be DC at this point in time. He is to continue with slow progressive strengthening of his BLEs and maintain the stretching he has been doing. Pt. consents to this plan. D/C Information d/c sentence: If there are questions or concerns regarding this patient's physical therapy, please feel free to call me at [phone]. Thank you for the referral of this patient. Sincerely, Foster Forte, DPT Balance/Gait/Functional tests Balance/Special Test Scores TUG Test Time Seconds: 8.2 Tug Test: <10 sec.=free mobile 30 Second Chair Rise Test Seconds: 17 WOMAC Total Score: 24 WOMAC Percentage: 75.0000 Improvement % Improvement: 95
== END 2024-03-15 19:00 | disposition home or self-care (01) ==
LOC: PT 13:00
PROVIDERS: PCP Family Medicine; Referring Provider Orthopaedic Surgery; Visit Provider Orthopaedic Surgery
DX: M17.11 Unilateral primary osteoarthritis, right knee (principal)
CPT/HCPCS: 97016; 97110; 97161; 97530

== ENCOUNTER 2024-05-08 08:40 | Day surgery (SDC) | payer MEDICARE, SELFPAY ==
--- NOTE | 2024-05-07 14:34 | PAT.ANE_ITS ---
Pre-Assessment Diagnosis/Proposed Procedure Planned Operative Procedure(s): COLONOSCOPY Anesthesia History Anesthesia History - sheep sticker: Anesthesia History - sheep sticker Hx Hospitalization Yes: RIGHT TOTAL KNEE 03/0505/07/24 08:51 Any Problems With Anesthesia No 05/07/24 08:51 Cholinesterase deficiency No 05/07/24 08:51 You/Your Family Experience No 05/07/24 08:51 fever (hyperthermia) with Relationship Recent Exposure to Contagious No 02/13/24 07:18 Disease Does patient have nerve No 05/07/24 08:51 stimulator Patient instructed to have device shut off --Does patient have Pacemaker or ICD? When Was Last Pacemaker Check QUESTION #4 FULL TEXT: You/Your Family Experience fever (hyperthermia) with Anesthesia Last Oral Intake Last Oral intake: Last Oral Intake NPO since Meds taken in AM with sips of water? Meds patient instructed to take am of surgery PONV PONV - sheep sticker: PONV - sheep sticker Female No 05/07/24 08:51 HX of Motion Sickness No 05/07/24 08:51 HX of N/V After Surgery No 05/07/24 08:51 Non-Smoker Yes 05/07/24 08:51 Duration of Surgery greater No 05/07/24 08:51 than 60 minutes Number of Risk Factors 1 05/07/24 08:51 PONV Score Low Risk 05/07/24 08:51 Height & Weight Height & Weight: Anesthesia: Height & Weight Height 5 ft 9 in 04/19/24 11:50 Respiratory Assessment Respiratory Assessment - sheep sticker: Respiratory Tract Infection Hx - sheep sticker Hx Respiratory Tract Infection No 05/07/24 08:51 STOP Sleep Apnea STOP Sleep Apnea - sheep sticker: STOP Sleep Apnea - sheep sticker Hx Hypertension No 05/07/24 08:51 Hx Sleep Apnea Yes 05/07/24 08:51 CPAP Yes 05/07/24 08:51 BIPAP No 05/07/24 08:51 Do you snore loudly (louder than talking or can be heard Do you often feel tired/ fatigued/ sleepy during daytime? Has anyone observed you stop breathing during sleep? STOP Results Positive 05/07/24 08:51 QUESTION #5 FULL TEXT : Do you snore loudly (louder than talking or can be heard through closed doors)? Tobacco Use History Tobacco Use History - sheep sticker: Tobacco Use History - sheep sticker Tobacco Use Smoking Status Former smoker 05/07/24 08:51 Hx Tobacco Use No 05/07/24 08:51 Years Smoking Packs Smoked per Day Smoking Cessation Date was No - quit smoking greater 05/07/24 08:51 within the last 15 years than 15 years ago Hx Smoking Cessation Date 03/13/07 05/07/24 08:51 Hx Smoking Cessation No 05/07/24 08:51 Counseling Hematologic Medial History Hematologic Hx - sheep sticker: Hematologic Medical Hx - site controller Hx of Blood Transfusion No 05/07/24 08:51 Hx of Transfusion in last 3 No 05/07/24 08:51 Months Date of Last Transfusion (if within last 3 months) Ever experience any problems No 05/07/24 08:51 with transfusion(s)? Specify any problems Hx of Preganancy in last 3 N/A 05/07/24 08:51 Months Nurse Filling Out Transfusion [email or web address] 05/07/24 08:51 & Questions: Date: 05/07/24 05/07/24 08:51 Time: 08:54 05/07/24 08:51 Patient unable to answer at this time (ie. confused, unrespo /Reproduction History /Reproductive History - sheep sticker: /Reproductive Hx- sheep sticker Hx Now Gestational Age (in weeks): EDC: Hx Hx Para Hx Section SAB No 05/07/24 08:51 PFSH Medical History Anxiety Diabetes Ambulates with cane Low iron Back pain Injury of back Shortness of breath on exertion History of pain when walking History of edema Hx of lipoma Wears glasses Cancer Walker as ambulation aid BPH (benign prostatic hyperplasia) Arthritis Prostate disease High cholesterol Gastric reflux CPAP (continuous positive airway pressure) dependence Former smoker History of echocardiogram History of stress test Cardiology follow-up encounter [place] GERD (gastroesophageal reflux disease) Postoperative atrial fibrillation History of myocardial infarction Atherosclerotic heart disease of [place] coronary artery without angina pectoris Ischemic cardiomyopathy Long-term use of high-risk medication Type 2 diabetes mellitus Hyperlipidemia Carotid bruit Home Medications ?Medication ?Instructions ?Recorded ?Last Taken ?Type aspirin 81 mg tablet,delayed 81 mg PO QHS heart health 09/06/17 05/06/24 History release tamsulosin 0.4 mg capsule 0.4 mg PO QHS BLADDER Unknown History acetaminophen 500 mg tablet 1,000 mg (2 x 500 mg) PO Q 6H #100 02/15/24 Unknown Rx tabs Allergy/AdvReac Type Severity Reaction Status Date / Time Penicillins AdvReac Severe Nausea Verified 05/07/24 08:49 Family History Mother CAD (coronary artery disease) Hypertension Sister Hypertension Breast cancer Father Cancer Brother Cancer leukemia/lymphoma Surgical History History of total right knee replacement History of cardiac catheterization S/P CABG x 5 Hx of colonoscopy History of left heart catheterization (LHC) (~01/29/19) Presence of stent in coronary artery (~01/17/08) Aortocoronary bypass status (~02/02/09) Postsurgical percutaneous transluminal coronary angioplasty (PTCA) status Social History household members: spouse current occupational status: retired Smoking Status: Former smoker alcohol intake: never substance use type: does not use what type of physical activity do you participate in: bicycling Audit: Pertinent Findings Pertinent Findings EKG Perinent findings: February 13, 2024. Sinus rhythm with frequent PVCs. Nonspecific intraventricular conduction block. Inferior infarct. Cannot rule out anterior infarct. Compared to EKG of November 08, 2023, no significant change was found. Stress test pertinent findings: December 21, 2023. Ejection fraction 50%. No ischemia is noted. Inferior duvall with a medium to large defect suggestive of previous extensive inferior infarct. Echo (EF%) pertinent findings: December 20, 2023. Ejection fraction 55%. PA systolic pressure is 33 mmHg. No aortic stenosis is noted. Heart catheterization pertinent findings: January 29, 2019. EF of 45%. All grafts are patent. Recommend medical therapy. Consult pertinent findings: November 30, 2023. Atul GAYTAN. 1. Status post CABG x 5.-With patient's fatigue and shortness of breath we will rule out cardiac causes with a stress test. (See above) 2. Dyspnea on minimal exertion-will get echo to reevaluate his LV function. 3. History of postoperative [id number] has not had any symptomatic recurrence. Continue to monitor. Recommendation Anesthesia Recommendation Anesthesia recommendation: OPTIMIZED for anesthesia
[2024-05-08] VITALS (9 sets, daily range): BP systolic 94–154; BP diastolic 54–88; PULSE 34–58; RESP 12–16; TEMP 36.4–36.6; O2SAT 96–100; BMI 28.6
--- NOTE | 2024-05-08 | COLBX_PTH ---
PATIENT: ELENITA PORTILLO LOC: EN U#:[id number] AGE/SX: 68/M ROOM: RE05/08/[address]: Dr. Kai Griffin MD : [id number] BED: DIS: 05/08/2024 SPEC #: [id number] RECD: 05/08/24 12:25 STATUS: PRIMO REFUGIO #: [id number] SIS: 05/08/24 00:[address]: Kai Griffin DEPT: SURGICAL PATHOLOGY RECD BY: Aidan Rush ENTERED: 05/08/24 12:26 SP TYPE: COLON BX OTHR DR: Dr. Sheree Peng MD Tissues: A - Ascending colon B - Rectum, NOS Procedures: Surgery Specimen Level IV HEADER OPERATION: Colonoscopy with biopsy PRE-OP DIAGNOSIS: Encounter for screening for malignant neoplasm of colon TISSUE SUBMITTED: A- Ascending colon polyp biopsy, B- Rectum polyp biopsy MICROSCOPIC DIAGNOSIS A. Ascending colon polyp, biopsy: Fragments of tubular adenoma. B. Rectal polyp, biopsy: A fragment of colonic mucosa, no pathologic diagnosis. TERRIE. 05/09/2024 MICROSCOPIC DESCRIPTION Slides are reviewed. GROSS DESCRIPTION A. Received in fixative is one container labeled with the patient's name and designated Ascending colon polyp biopsy. The specimen consists of multiple irregular fragments of light torres soft tissue that in aggregate measure 1 x 0.2 x 0.2 cm. The specimen is totally submitted in one cassette. B. Received in fixative is one container labeled with the patient's name and designated Rectum polyp biopsy. The specimen consists of one irregular fragment of light torres soft tissue that measures 0.3 x 0.2 x 0.2 cm. The specimen is totally submitted in one cassette. mr 05/08/2024 TC:1 CPT:59106b5
--- NOTE | 2024-05-08 08:58 | EKG12_ITS ---
Test Reason : DYANA Blood Pressure : */* mmHG Vent. Rate : 63 BPM Atrial Rate : 63 BPM P-R Int : 156 ms QRS Dur : 120 ms QT Int : 416 ms P-R-T Axes : * 37 193 degrees QTcB Int : 425 ms Sinus rhythm with Premature supraventricular complexes in a pattern of bigeminy Old inferior wall [place] Abnormal ECG When compared with ECG of 13-Feb-2024 06:46, Significant changes have occurred Confirmed by Clint Echols ([id number]), editor magazine [employer] ([id number]) on 05/13/2024 10:58:08 AM Referred By: Sheree Peng Confirmed By: Clint Echols
--- NOTE | 2024-05-08 09:58 | PRE.ANES_ITS ---
ASA Classification* ASA Classification ASA Classification: 3 Assessment & Plan Anesthesia* Anesthesia Assessment Anesthesia Assessment: Discussed sedation and/or anesthesia options, risks, benefits, and alternatives with patient/parents/legal guardian/POA. Questions invited. The patient/parents/legal guardian/POA seems to understand and agrees to proceed with anesthesia plan. Reviewed the physical assessment, medical history, allergy history and patient home medications list prior to surgery/procedure/anesthetic and documented any changes. Performed airway and anesthesia risk assessments. Anesthesia Type Anesthesia Type: MAC History Source History Obtained from:: Patient and Chart Anesthesia Focused Assessment* Temperature: 97.9 F Pulse Rate: 34 Blood Pressure: 154/88 Respiratory Rate: 12 Pulse Ox: 96 Oxygen Delivery Method: Room Air Airway Assessment Mouth opens: >3 cm Mallampati Score: II Teeth Condition: Intact and Missing (missing few teeth bottom lower back) Neck Range of motion (ROM): Full ROM Focused Labs Anesthesia Preop lab: CBC WBC 8.7 K/mm3 (4.4-11.0) 02/15/24 05:10 02/15/24 RBC 4.39 M/mm3 (4.6-6.2) L 02/15/24 05:10 02/15/24 Hgb 12.4 g/dL (13.0-16.5) L 02/15/24 05:10 4 Hct 38.5 % (40-54) L 02/15/24 05:10 02/15/24 Plt Count 209 K/mm3 (150-450) 02/15/24 05:10 02/15/24 CHEMISTRY Potassium 4.7 mmol/L (3.5-5.1) 02/14/24 05:49 02/14/24 Sodium 139 mmol/L (136-145) 02/14/24 05:49 02/14/24 Magnesium 2.3 mg/dL (1.6-2.6) 01/31/24 12:00 01/31/24 BUN 15 mg/dL (7-18) 02/14/24 05:49 02/14/24 Creatinine 0.98 mg/dL (0.70-1.30) 02/14/24 05:49 02/14/24 Glucose 147 mg/dL (74-106) H 02/14/24 05:49 02/14/24 POC Glucose 147 mg/dL (74-106) H 02/13/24 11:47 02/13/24 TSH 2.30 uIU/mL (0.358-3.74) 11/28/22 09:15 COAG PT 14.0 SECONDS (11.7-14.9) 01/31/24 12:00 Pre-Assessment Diagnosis/Proposed Procedure Planned Operative Procedure(s): COLONOSCOPY Anesthesia History Anesthesia History - kids activities coach: Anesthesia History - kids activities coach Hx Hospitalization Yes: RIGHT TOTAL KNEE 03/0505/07/24 08:51 Any Problems With Anesthesia No 05/07/24 08:51 Cholinesterase deficiency No 05/07/24 08:51 You/Your Family Experience No 05/07/24 08:51 fever (hyperthermia) with Relationship Recent Exposure to Contagious No 05/08/24 09:06 Disease Does patient have nerve No 05/07/24 08:51 stimulator Patient instructed to have device shut off --Does patient have Pacemaker No 05/08/24 09:06 or ICD? When Was Last Pacemaker Check QUESTION #4 FULL TEXT: You/Your Family Experience fever (hyperthermia) with Anesthesia Last Oral Intake Last Oral intake: Last Oral Intake NPO since 05:00 05/08/24 09:06 Meds taken in AM with sips of No 05/08/24 09:06 water? Meds patient instructed to take am of surgery PONV PONV - kids activities coach: PONV - kids activities coach Female No 05/07/24 08:51 HX of Motion Sickness No 05/07/24 08:51 HX of N/V After Surgery No 05/07/24 08:51 Non-Smoker Yes 05/07/24 08:51 Duration of Surgery greater No 05/07/24 08:51 than 60 minutes Number of Risk Factors 1 05/07/24 08:51 PONV Score Low Risk 05/07/24 08:51 Height & Weight Height & Weight: Anesthesia: Height & Weight Height 5 ft 9 in 05/08/24 09:06 Weight: 88 kg 05/08/24 09:06 Body Mass Index (BMI) 28.6 05/08/24 09:06 Respiratory Assessment Respiratory Assessment - kids activities coach: Respiratory Tract Infection Hx - kids activities coach Hx Respiratory Tract Infection No 05/07/24 08:51 STOP Sleep Apnea STOP Sleep Apnea - kids activities coach: STOP Sleep Apnea - kids activities coach Hx Hypertension No 05/07/24 08:51 Hx Sleep Apnea Yes 05/07/24 08:51 CPAP Yes 05/07/24 08:51 BIPAP No 05/07/24 08:51 Do you snore loudly (louder than talking or can be heard Do you often feel tired/ fatigued/ sleepy during daytime? Has anyone observed you stop breathing during sleep? STOP Results Positive 05/07/24 08:51 QUESTION #5 FULL TEXT : Do you snore loudly (louder than talking or can be heard through closed doors)? Tobacco Use History Tobacco Use History - kids activities coach: Tobacco Use History - kids activities coach Tobacco Use Smoking Status Former smoker 05/07/24 08:51 Hx Tobacco Use No 05/07/24 08:51 Years Smoking Packs Smoked per Day Smoking Cessation Date was No - quit smoking greater 05/07/24 08:51 within the last 15 years than 15 years ago Hx Smoking Cessation Date 03/13/07 05/07/24 08:51 Hx Smoking Cessation No 05/07/24 08:51 Counseling Hematologic Medial History Hematologic Hx - kids activities coach: Hematologic Medical Hx - clinical documentation spec Hx of Blood Transfusion No 05/07/24 08:51 Hx of Transfusion in last 3 No 05/07/24 08:51 Months Date of Last Transfusion (if within last 3 months) Ever experience any problems No 05/07/24 08:51 with transfusion(s)? Specify any problems Hx of Preganancy in last 3 N/A 05/07/24 08:51 Months Nurse Filling Out Transfusion [email or web address] 05/07/24 08:51 & Questions: Date: 05/07/24 05/07/24 08:51 Time: 08:54 05/07/24 08:51 Patient unable to answer at this time (ie. confused, unrespo /Reproduction History /Reproductive History - kids activities coach: /Reproductive Hx- kids activities coach Hx Now Gestational Age (in weeks): EDC: Hx Hx Para Hx Section SAB No 05/07/24 08:51 PFSH Medical History Anxiety Diabetes Ambulates with cane Low iron Back pain Injury of back Shortness of breath on exertion History of pain when walking History of edema Hx of lipoma Wears glasses Cancer Walker as ambulation aid BPH (benign prostatic hyperplasia) Arthritis Prostate disease High cholesterol Gastric reflux CPAP (continuous positive airway pressure) dependence Former smoker History of echocardiogram History of stress test Cardiology follow-up encounter [place] GERD (gastroesophageal reflux disease) Postoperative atrial fibrillation History of myocardial infarction Atherosclerotic heart disease of [place] coronary artery without angina pectoris Ischemic cardiomyopathy Long-term use of high-risk medication Type 2 diabetes mellitus Hyperlipidemia Carotid bruit Home Medications ?Medication ?Instructions ?Recorded ?Last Taken ?Type aspirin 81 mg tablet,delayed 81 mg PO QHS heart health 09/06/17 05/06/24 History release tamsulosin 0.4 mg capsule 0.4 mg PO QHS BLADDER 05/06/24 History acetaminophen 500 mg tablet 1,000 mg (2 x 500 mg) PO Q 6H #100 02/15/24 Unknown Rx tabs Allergy/AdvReac Type Severity Reaction Status Date / Time Penicillins AdvReac Severe Nausea Verified 05/08/24 09:05 Family History Mother CAD (coronary artery disease) Hypertension Sister Hypertension Breast cancer Father Cancer Brother Cancer leukemia/lymphoma Surgical History History of total right knee replacement History of cardiac catheterization S/P CABG x 5 Hx of colonoscopy History of left heart catheterization (LHC) (~01/29/19) Presence of stent in coronary artery (~01/17/08) Aortocoronary bypass status (~02/02/09) Postsurgical percutaneous transluminal coronary angioplasty (PTCA) status Social History household members: spouse current occupational status: retired Smoking Status: Former smoker alcohol intake: never substance use type: does not use what type of physical activity do you participate in: bicycling Review of Systems (Anesthesia) ROS Narrative System reviewed and no additional complaints, except as documented. Physical Exam Const alert and oriented x3 HEENT dentition normal Resp normal respiratory effort Cardio Cardio Narrative: irregular rhythm, patient not symptomatic EKG done in preop shows sinus rhythm with PVCs and bigemeny, when compared to previous EKG from 02/2024 EKG appears unchagned Patient denies chest pain with acitvity, goes to gym 2-3x's/week without CP or SOB. No headache, lightheadedness, dizziness, n/v, blurry vision. Saw loading machine operator 11/2023 and had echo as above in 12/2023. Neuro oriented x3 and moves all extremities
--- NOTE | 2024-05-08 10:07 | HP.PCM_ITS ---
[facility] - General General Date of Admission: 05/08/24 Date of Service: 05/08/24 Chief Complaint: Screening colonoscopy HPI Narrative ELENITA PORTILLO, is a 68 M who presents today for screening colonoscopy. His last colonoscopy was about 20 years ago. He has never had colon polyps. It sounds as though he may have had a Cologuard test more recently than his last colonoscopy. Presumably this was negative. He denies any GI issues or complaints. [facility], [facility] Medical History Anxiety Diabetes Ambulates with cane Low iron Back pain Injury of back Shortness of breath on exertion History of pain when walking History of edema Hx of lipoma Wears glasses Cancer Walker as ambulation aid BPH (benign prostatic hyperplasia) Arthritis Prostate disease High cholesterol Gastric reflux CPAP (continuous positive airway pressure) dependence Former smoker History of echocardiogram History of stress test Cardiology follow-up encounter [place] GERD (gastroesophageal reflux disease) Postoperative atrial fibrillation History of myocardial infarction Atherosclerotic heart disease of [place] coronary artery without angina pectoris Ischemic cardiomyopathy Long-term use of high-risk medication Type 2 diabetes mellitus Hyperlipidemia Carotid bruit Home Medications ?Medication ?Instructions ?Recorded ?Last Taken ?Type aspirin 81 mg tablet,delayed 81 mg PO QHS heart health 09/06/17 05/06/24 History release tamsulosin 0.4 mg capsule 0.4 mg PO QHS BLADDER 05/06/24 History acetaminophen 500 mg tablet 1,000 mg (2 x 500 mg) PO Q 6H #100 02/15/24 Unknown Rx tabs Allergy/AdvReac Type Severity Reaction Status Date / Time Penicillins AdvReac Severe Nausea Verified 05/08/24 09:05 Family History Mother CAD (coronary artery disease) Hypertension Sister Hypertension Breast cancer Father Cancer Brother Cancer leukemia/lymphoma Surgical History History of total right knee replacement History of cardiac catheterization S/P CABG x 5 Hx of colonoscopy History of left heart catheterization (LHC) (~01/29/19) Presence of stent in coronary artery (~01/17/08) Aortocoronary bypass status (~02/02/09) Postsurgical percutaneous transluminal coronary angioplasty (PTCA) status Social History household members: spouse current occupational status: retired Smoking Status: Former smoker alcohol intake: never substance use type: does not use what type of physical activity do you participate in: bicycling Vital Signs Vital Signs Vital Signs: 05/08/24 09:06 05/08/24 09:06 05/08/24 10:01 Temperature 97.9 F 97.9 F Temperature Source Temporal Pulse Rate 34 L 34 L Respiratory Rate 12 12 Respiratory Pattern Normal Blood Pressure 154/88 H 154/88 H Blood Pressure Mean 110 Pulse Ox 96 96 Oxygen Delivery Method Room Air Room Air Weight Weight: 194 lb 0.108 oz Body Mass Index (BMI) 28.6 Physical Exam Const alert, oriented x3 and no apparent distress Assessment & Plan Assessment/Plan (1) Encounter for screening for malignant neoplasm of colon: PLAN: Plan 68-year-old man in need of screening colonoscopy. We discussed the details of the planned procedure and he wishes to proceed. This will begin momentarily Charges/Coding Visit Charges Inpatient E&M: 12510 Init Hosp L1
--- NOTE | 2024-05-08 10:54 | OP.CCLET_ITS ---
05/08/2024 Sheree Peng [place] [id number] [address] Re : Colonoscopy procedure for Tarik Samuel Dear Dr. Peng This procedure was performed on Wednesday, May 08, 2024. My impressions and recommendations are as follows: Impressions : - Non-bleeding internal hemorrhoids. - One 4 mm polyp in the ascending colon, removed with a cold biopsy forceps. Resected and retrieved. - One 3 mm polyp in the rectum, removed with a cold biopsy forceps. Resected and retrieved. - The examination was otherwise normal on direct and retroflexion views. Recommendations : - Discharge patient to home (ambulatory). - High fiber diet. - Await pathology results. - Repeat colonoscopy in 3 - 5 years for surveillance. - Return to my office PRN. - Continue present medications. My findings are described in the full procedure note, which is enclosed. If I can be of further assistance, please feel free to contact me at . Sincerely, Kai Griffin MD 05/08/2024 10:54:06 AM This report has been signed electronically.
--- NOTE | 2024-05-08 10:54 | OP.COLON_ITS ---
Patient Name: Tarik Samuel Procedure Date: 05/08/2024 10:08 AM Date of : 1955 Age: 68 Procedure: Colonoscopy Indications: Screening for colorectal malignant neoplasm Providers: Kai Griffin MD Referring MD: Sheree Peng Medicines: Monitored Anesthesia Care Patient Profile: Refer to note in patient chart for documentation of history and physical. Last Colonoscopy: more than 10 years ago. Complications: No immediate complications. Estimated blood loss: Minimal. Procedure: Pre-Anesthesia Assessment: - Prior to the procedure, a History and Physical was performed, and patient medications and allergies were reviewed. The patient's tolerance of previous anesthesia was also reviewed. The risks and benefits of the procedure and the sedation options and risks were discussed with the patient. All questions were answered, and informed consent was obtained. Prior Anticoagulants: The patient has taken no anticoagulant or antiplatelet agents. ASA Grade Assessment: II - A patient with mild systemic disease. After reviewing the risks and benefits, the patient was deemed in satisfactory condition to undergo the procedure. After I obtained informed consent, the scope was passed under direct vision. Throughout the procedure, the patient's blood pressure, pulse, and oxygen saturations were monitored continuously. The adult colonoscope was introduced through the anus and advanced to the cecum, identified by appendiceal orifice and ileocecal valve. The ileocecal valve, appendiceal orifice, and rectum were photographed. The entire colon was well visualized. The colonoscopy was performed without difficulty. The patient tolerated the procedure well. The quality of the bowel preparation was adequate. Moderate Sedation: See the other procedure note for documentation of moderate sedation with intraservice time. Scope In: 10:24:07 AM Scope Withdrawal Time 0 hours 11 minutes 50 seconds Scope Out: 10:45:09 AM Total Procedure Duration Time 0 hours 21 minutes 2 seconds Findings: The perianal and digital rectal examinations were normal. Non-bleeding internal hemorrhoids were found during retroflexion. The hemorrhoids were large. A 4 mm polyp was found in the ascending colon. The polyp was semi-sessile. The polyp was removed with a cold biopsy forceps. Resection and retrieval were complete. Verification of patient identification for the specimen was done by the nurse using the patient's name, date and medical record number. Estimated blood loss was minimal. A 3 mm polyp was found in the rectum. The polyp was sessile. The polyp was removed with a cold biopsy forceps. Resection and retrieval were complete. Verification of patient identification for the specimen was done by the nurse using the patient's name, date and medical record number. Estimated blood loss was minimal. The exam was otherwise without abnormality on direct and retroflexion views. Impression: - Non-bleeding internal hemorrhoids. - One 4 mm polyp in the ascending colon, removed with a cold biopsy forceps. Resected and retrieved. - One 3 mm polyp in the rectum, removed with a cold biopsy forceps. Resected and retrieved. - The examination was otherwise normal on direct and retroflexion views. Recommendation: - Discharge patient to home (ambulatory). - High fiber diet. - Await pathology results. - Repeat colonoscopy in 3 - 5 years for surveillance. - Return to my office PRN. - Continue present medications. Procedure Code(s): --- Professional --- 53732, Colonoscopy, flexible; with biopsy, single or multiple Diagnosis Code(s): --- Professional --- Z12.11, Encounter for screening for malignant neoplasm of colon K64.8, Other hemorrhoids D12.8, Benign neoplasm of rectum D12.2, Benign neoplasm of ascending colon CPT copyright 2021 [employer]. All rights reserved. The codes documented in this report are preliminary and upon order picker/assembler review may be revised to meet current compliance requirements. Kai Griffin MD 05/08/2024 10:54:06 AM This report has been signed electronically. Number of Addenda: 0 Note Initiated On: 05/08/2024 10:08 AM
--- NOTE | 2024-05-08 11:03 | PCM.POST.ANE ---
Anesthesia: Postop Eval I Current Vital Signs Temperature: 97.5 F Pulse Rate: 56 Blood Pressure: 94/55 Respiratory Rate: 16 Pulse Ox: 98 Oxygen Delivery Method: Room Air Assessment Airway patent: Yes Spontaneous unlabored respirations: Yes Mental status: Awake nausea: No Vomiting: No Anesthesia Complication: No Fluid Hydration Crystalloid volume administer (ml): 10 Total IV fluid infused: 10 Progress Note Anesthesia document: Postop Eval 1 completed: Yes
--- NOTE | 2024-05-08 15:25 | POSTOPAN2_ITS ---
Anesthesia Postop Eval I Sum Postop Eval Completion status Anesthesia document: Postop Eval 1 completed: Yes Anesthesia Postop Eval I Summary Anesthesia Postop Eval I Summary: Anesthesia Postop Eval I: Assessment Summary Airway patent Yes 05/08/24 11:04 [email or web address] Spontaneous unlabored Yes 05/08/24 11:04 [email or web address] respirations Mental status Awake 05/08/24 11:04 [email or web address] nausea No 05/08/24 11:04 [email or web address] Vomiting No 05/08/24 11:04 [email or web address] Anesthesia Postop Eval I: Fluid Summary Crystalloid volume administer 10 05/08/24 11:04 [email or web address] (ml) Colloids volume administered ( ml) Blood Product volume administered (ml) Total IV fluid infused 10 05/08/24 11:04 [email or web address] Anesthesia Postop Eval I: Summary Notes Anesthesia Complication No 05/08/24 11:04 [email or web address] Anesthesia Complication Comment: Post-operative progress note Anesthesia: Postop Eval II Evaluation Mental status: Awake and Calm Pain Level: 3 nausea: No Vomiting: No Complications Anesthesia Complication: No
--- NOTE | 2024-05-08 15:25 | PCM.POSTANE2 ---
Anesthesia Postop Eval I Sum Postop Eval Completion status Anesthesia document: Postop Eval 1 completed: Yes Anesthesia Postop Eval I Summary Anesthesia Postop Eval I Summary: Anesthesia Postop Eval I: Assessment Summary Airway patent Yes 05/08/24 11:04 [email or web address] Spontaneous unlabored Yes 05/08/24 11:04 [email or web address] respirations Mental status Awake 05/08/24 11:04 [email or web address] nausea No 05/08/24 11:04 [email or web address] Vomiting No 05/08/24 11:04 [email or web address] Anesthesia Postop Eval I: Fluid Summary Crystalloid volume administer 10 05/08/24 11:04 [email or web address] (ml) Colloids volume administered ( ml) Blood Product volume administered (ml) Total IV fluid infused 10 05/08/24 11:04 [email or web address] Anesthesia Postop Eval I: Summary Notes Anesthesia Complication No 05/08/24 11:04 [email or web address] Anesthesia Complication Comment: Post-operative progress note Anesthesia: Postop Eval II Evaluation Mental status: Awake and Calm Pain Level: 3 nausea: No Vomiting: No Complications Anesthesia Complication: No
== END 2024-05-08 12:05 | disposition home or self-care (01) ==
LOC: EN 08:40 → AC 08:41
PROVIDERS: PCP Family Medicine; Referring Provider Family Medicine; Visit Provider Surgery
PROC: 0DJD8ZZ Inspection of Lower Intestinal Tract, Via Natural or Artificial Opening Endoscopic (ICD-10-PCS; CPT 45378; principal; 2024-05-08 09:40)
DX: Z12.11 Encounter for screening for malignant neoplasm of colon (principal); E11.9 Type 2 diabetes mellitus without complications; K64.8 Other hemorrhoids; D12.2 Benign neoplasm of ascending colon; K62.1 Rectal polyp; N40.0 Benign prostatic hyperplasia without lower urinary tract symptoms; G47.30 Sleep apnea, unspecified; Z79.82 Long term (current) use of aspirin; Z79.899 Other long term (current) drug therapy; Z87.891 Personal history of nicotine dependence; Z95.1 Presence of aortocoronary bypass graft; Z95.5 Presence of coronary angioplasty implant and graft
CPT/HCPCS: 45380; 88305; 93005; A4216; J2405

== ENCOUNTER → 2024-05-13 | Outpatient (CLI) | payer MEDICARE, SELFPAY | END | disposition home or self-care (01) | LOC: PSN 12:26 | PROVIDERS: PCP Family Medicine; Referring Provider Physician Assistant Medical; Visit Provider Physician Assistant Medical | DX: R06.09 Other forms of dyspnea (principal); R00.1 Bradycardia, unspecified | CPT/HCPCS: 93225; 93226 ==

== ENCOUNTER → 2024-05-15 | Outpatient (CLI) | payer MEDICARE, SELFPAY ==
--- NOTE | 2024-05-15 10:48 | RAD_ITS ---
PROCEDURE: CHEST PA AND LATERAL REASON FOR EXAM: Chest pain. TECHNIQUE: Frontal and lateral views of the chest. COMPARISON: [facility] chest x-ray 11/08/2019. RAD/Chest PA and Lateral IMPRESSION: Left axillary surgical clips are again noted. Prior CABG again seen. The cardiomediastinal silhouette is within the normal range. Numerous prior left rib fractures are again noted. Mild blunting of the left costophrenic angle appear stable. No pleural effusion or pneumothorax is seen. Lungs appear clear of acute disease. Reading Location: [id number]
[2024-05-15 10:59] LABS: Absolute Neutrophil Count 3.9 X10^3/uL (2.0-7.7); Basophil# 0.02 X10^3/uL; Basophil% 0.4 % (0-1); Eosinophil# 0.07 X10^3/uL; Eosinophils% 1.3 % (0-5); Hematocrit 45.9 % (40-54); Hemoglobin 15.2 g/dL (13.0-16.5); Lymphocyte % 16.1 % (19-41); Mean Corp Hgb Conc 33.1 g/dL (32-36); Mean Corpuscular Hgb 27.8 pg (27.0-32.0); Mean Corpuscular Volume 83.9 fL (80-94); Mean Platelet Vol. 10.2 fl (6.2-12.0); Monocyte# 0.67 X10^3/uL; NRBC Flagged by Analyzer 0 % (0-5); Neutrophil % 69.8 % (47-70); Platelet Count 275 K/mm3 (150-450); RBC Distribution Width CV 14.3 % (11.6-14.6); RBC Distribution Width SD 43.8 fl (35.1-43.9); Red Blood Count 5.47 M/mm3 (4.6-6.2); White Blood Count 5.6 K/mm3 (4.4-11.0)
[2024-05-15 12:05] LABS: Anion Gap 11 (5-15); BUN 18 mg/dL (4-19); BUN/Creat Ratio 15.6 RATIO (10-20); Calcium,Total 9.1 mg/dL (7.6-11.0); Carbon Dioxide 24.7 mmol/L (21.0-32.0); Chloride 102 mmol/L (98-108); Creatinine, Serum 1.17 mg/dL (0.70-1.20); EST Glomerular Filtration Rate 67 (>60); Glucose 93 mg/dL (70-99); Magnesium 2.3 mg/dL (1.5-2.2); Potassium 4.8 mmol/L (3.3-5.1); Sodium Level 137 mmol/L (133-145)
== END | disposition home or self-care (01) ==
PROVIDERS: PCP Family Medicine; Referring Provider Physician Assistant Medical; Visit Provider Physician Assistant Medical
DX: R06.00 Dyspnea, unspecified (principal); R53.83 Other fatigue; Z95.5 Presence of coronary angioplasty implant and graft; I25.5 Ischemic cardiomyopathy; Z95.1 Presence of aortocoronary bypass graft; I49.3 Ventricular premature depolarization
CPT/HCPCS: 36415; 71046; 80048; 83735; 84443; 85025

== ENCOUNTER 2024-05-28 08:29 | Day surgery (SDC) | payer MEDICARE, SELFPAY ==
[2024-05-27 08:08] VITALS: BMI 29.5
--- NOTE | 2024-05-28 17:49 | CL.D_ITS ---
Patient Name: ELENITA PORTILLO Study Date: 05/28/2024 Performing: Cyrus Slater MD Ht: 69 inches 175.26 cm : 1955 Wt: 200.3 lbs 90.72 kg Age: 68 Gender: male BSA: 2.07 PROCEDURE(S) PERFORMED DC04-([id number])LHC/COR/CABG CLINICAL PROFILE AND INDICATIONS Indications: Other Heart Failure: None Stress/Imaging Stress/Image Study Performed: No CAD Presentations: Other: sob CONCLUSIONS Coronary artery disease with bypass grafts to the LAD, diagonal vessel, dominant right coronary artery noted to be patent with preserved ejection fraction. RECOMMENDATIONS Continue medical therapy. Patient noted to be bradycardic. Would consider discontinuing the beta-shlomo at this time. DESCRIPTION OF PROCEDURE The patient arrived to the procedure lab. The risks and benefits of the procedure as well as a full description of our services here and current unavailability of surgical backup were fully explained to the patient and/or their significant other prior to the catheterization. The Timeout was completed, verifying the correct patient and procedure. The patient's procedural site was prepped and draped in the usual fashion. Local anesthetic was given subcutaneously to left radial region with Lidocaine 2%. Using a modified Seldinger technique, arterial access was obtained via the left radial artery, a 6Fr sheath was inserted. Left internal mammary artery graft to the LAD selective angiography was performed in multiple views using a 5 Fr. IM catheter. Left Coronary Artery selective angiography was performed in multiple views using a 5 Fr. JL4 catheter. Saphenous Vein graft to the RCA and rpda selective angiography was performed in multiple views using a 5 Fr. AR MOD catheter. Saphenous Vein graft to the DIAG 2 selective angiography was performed in multiple views using a 5 Fr. 3DRC (Pedro Luis) catheter.The arterial sheath was pulled and a TR Band was applied for hemostasis CORONARY ANGIOGRAPHY DOMINANCE: Right Dominant LEFT HEART ASSESSMENT Left Ventricular Ejection Fraction: by Echo 55 % Normal LV wall motion Normal Left Ventricular systolic function LEFT MAIN: Mild luminal irregularities less than 30% LEFT ANTERIOR DESCENDING ARTERY: Diffusely diseased proximal and mid segment with up to 80% stenosis in the first diagonal vessel with a 90% proximal stenosis noted. CIRCUMFLEX ARTERY: Nondominant vessel with no significant stenosis present RIGHT CORONARY ARTERY: Dominant vessel not imaged previously noted to have high-grade stenosis GRAFTS: MUELLER graft to the Mid LAD Patent with slightly sluggish flow due to heart rate Saphenous Vein graft to the 1st Diagonal is patent Sequential graft to the Posterior descending artery and posterolateral vessel which is patent COMPLICATIONS No Complications PROCEDURE MEDICATIONS Versed 1 mg IV Fentanyl 50 mcg IV Fentanyl 25 mcg IV Oxygen: 2 L/min via nasal cannula Heparin given IA 05/28/2024 10:00:53 SUMMARY OF HEMODYNAMIC DATA Time AIR REST ECG 08:46:35 AO 111/42 (63) SA 10:17:44 Signed By Cyrus Slater MD On 05/28/2024 17:48:42 Cyrus Slater MD
== END 2024-05-28 12:20 | disposition home or self-care (01) ==
PROVIDERS: PCP Family Medicine; Referring Provider Internal Medicine Cardiovascular Disease; Visit Provider Internal Medicine Cardiovascular Disease
DX: I25.10 Atherosclerotic heart disease of native coronary artery without angina pectoris (principal); I48.91 Unspecified atrial fibrillation; E11.9 Type 2 diabetes mellitus without complications; R06.02 Shortness of breath; Z95.1 Presence of aortocoronary bypass graft; Z95.5 Presence of coronary angioplasty implant and graft; E78.5 Hyperlipidemia, unspecified; I10 Essential (primary) hypertension; Z99.89 Dependence on other enabling machines and devices; I25.2 Old myocardial infarction; Z82.49 Family history of ischemic heart disease and other diseases of the circulatory system; Z87.891 Personal history of nicotine dependence; R53.83 Other fatigue; I25.5 Ischemic cardiomyopathy; I49.3 Ventricular premature depolarization; I97.89 Other postprocedural complications and disorders of the circulatory system, not elsewhere classified
CPT/HCPCS: 92960; 93005; 93455; 99152; 99153; C1769; C1894; Q9967; C1887

== ENCOUNTER → 2024-10-30 | Outpatient (CLI) | payer MEDICARE, SELFPAY ==
[2024-10-30 12:28] LABS: Hematocrit 43.6 % (40-54); Hemoglobin 14.7 g/dL (13.0-16.5); Immature Granulocytes Count 0.020 X10^3/uL (0.0-0.0); Mean Corp Hgb Conc 33.7 g/dL (32-36); Mean Corpuscular Volume 84.7 fL (80-94); Mean Platelet Vol. 9.4 fl (6.2-12.0); NRBC Flagged by Analyzer 0 % (0-5); Platelet Count 245 K/mm3 (150-450); RBC Distribution Width CV 14.3 % (11.6-14.6); RBC Distribution Width SD 44.1 fl (35.1-43.9); Red Blood Count 5.15 M/mm3 (4.6-6.2); White Blood Count 5.3 K/mm3 (4.4-11.0)
[2024-10-30 13:10] LABS: AST(SGOT) 21 U/L (<=37); Alanine Aminotransfer ALT/SGPT 18 U/L (<=46); Albumin, Serum 4.0 g/dL (3.4-4.8); Alkaline Phosphatase 64 U/L (40-129); Anion Gap 11 (5-15); BUN 17 mg/dL (4-19); BUN/Creat Ratio 16.7 RATIO (10-20); Calcium,Total 9.2 mg/dL (7.6-11.0); Carbon Dioxide 25.0 mmol/L (21.0-32.0); Chloride 100 mmol/L (98-108); Cholesterol 152 mg/dL (<=200); Globulin 2.3 g/dL (2.2-4.2); Glucose 105 mg/dL (70-99); Low Density Lipoprotein Calc. 70 mg/dL; Potassium 4.5 mmol/L (3.3-5.1); Triglycerides 73 mg/dL; Very Low Density Lipoprotein 15 mg/dL (5-40); cholesterol:hdl ratio screen 2.24
== END | disposition home or self-care (01) ==
LOC: MTLAB 09:33
PROVIDERS: PCP Family Medicine; Referring Provider Family Medicine; Visit Provider Family Medicine
DX: I25.10 Atherosclerotic heart disease of native coronary artery without angina pectoris (principal); R73.03 Prediabetes; F32.A Depression, unspecified
CPT/HCPCS: 36415; 80053; 80061; 83036; 84443; 85025